=== PATIENT | female | born 1940 | race Hispanic/Latino ===

== ENCOUNTER 2020-09-18 22:32 | Emergency (ER) | payer MEDICARE, MEDICAID ==
[~2020-09-18] VITALS: Ht 172.7 cm; Wt 93.0 kg
[~2020-09-18 22:32] MED LIST: ALDACTONE50 MG ORAL; AMLODIPINE BESY10 MG ORAL; ATENOLOL-CHLOR1 EAC2 ORAL; ATENOLOL100 MG ORAL; ATORVASTATIN CA20 MG ORAL; AZOR 10-20 MG1 EACH ORAL; BAYER CHEWABLE81 MG PO; FUROSEMIDE40 MG ORAL; LASIX40 MG ORAL; LOSARTAN POTASS50 MG ORAL; METFORMIN HCL500 M1 ORAL; TOPROL XL100 MG ORAL; WARFARIN SODIUM10 MG ORAL
[2020-09-18 22:35] VITALS: BP 158/101
--- NOTE | 2020-09-18 22:35 | NUR ---
ED Nurse Note: Patient brought into ED from home by BABAK RA 67 for c/o SOB onset today along with cough for the past few days. Patient presents to ED on NC that was placed by BABAK. Upon connecting to panel monitor patient is on 2L oxygen via NC with saturation of 98%. She denies any fever, chest pain, generalized pain or weakness. She is aaox4. Patient states she also saw her flying squad worker today, no complications. Will cont. to monitor; safety measures met.
--- NOTE | 2020-09-18 22:35 | NUR ---
ED Nurse Note: Audible wheezing heard upon assessment.
--- NOTE | 2020-09-18 22:44 | Emergency Room Report ---
History of Present Illness General Chief Complaint: sob Source: Patient, EMS Present Illness HPI Patient is an 80-year-old female past medical history of diabetes, hypertension, heart disease, on warfarin who presents to the ER for shortness of breath. Patient was brought in by EMS from home. Patient states that she has had a nonproductive cough for the past few days and became short of breath earlier today. She denies any chest pain. She denies any fever or chills. She denies any abdominal pain nausea or vomiting. She denies any lower extremity pain. She denies any sick contacts. She denies any recent travel. Patient states that she was seen by her covering and lining supervisor today and was told that everything was okay. Allergies: Coded Allergies: No Known Allergies (Unverified , 05/01/13) COVID-19 Screening Contact w/high risk pt: No Experienced COVID-19 symptoms?: Yes COVID-19 Testing performed CONTESTANT COORDINATOR: No Patient History Last Menstrual Period: UNK Now: No Reviewed Nursing Documentation: PMH: Agreed; PSxH: Agreed Nursing Documentation-PMH Past Medical History: No History, Except For Hx Cardiac Problems: Yes Hx Hypertension: Yes Hx Diabetes: Yes Hx Cancer: No Hx Gastrointestinal Problems: No Hx Neurological Problems: No Review of Systems All Other Systems: negative except mentioned in HPI Physical Exam Vital Signs Date Time Temp Pulse Resp B/P (MAP) Pulse Ox O2 Delivery O2 Flow Rate FiO2 09/18/20 22:24 98.2 78 24 158/101 (120) 95 Room Air Sp02 EP Interpretation: reviewed, normal General Appearance: alert, GCS 15, non-toxic, mild distress Head: normocephalic, atraumatic Eyes: bilateral eye normal inspection, bilateral eye PERRL ENT: hearing grossly normal, normal pharynx, no angioedema, normal voice Neck: full range of motion, supple/symm/no masses Respiratory: respiratory distress, crackles, speaking full sentences, other - Tachypneic Cardiovascular #1: regular rate, rhythm, no edema Gastrointestinal: normal bowel sounds, non tender, soft, non-distended, no guarding, no rebound Rectal: deferred Genitourinary: normal inspection, no CVA tenderness Musculoskeletal: normal range of motion, no calf tenderness Neurologic: neurology teacher III-XII nml as tested, oriented x3 Psychiatric: no suicidal/homicidal ideation Skin: no rash Lymphatic: no adenopathy Medical Decision Making Diagnostic Impression: Primary Impression: Respiratory distress Additional Impressions: Systolic congestive left heart failure, NYHA class 4 Acute renal failure ER Course Patient presents with CHF exacerbation. Patient given aspirin as well as IV Lasix. Patient has mildly elevated white blood cell count. Patient treated with azithromycin as well as ceftriaxone. Patient mildly hypoxic nasal cannula increased to 5 L. Patient appears improved. Patient to be transferred for further treatment and evaluation. Laboratory Tests Test 09/18/20 00:17 09/18/20 22:35 09/18/20 23:27 Arterial Blood pH 7.412 (7.350-7.450) Arterial Blood Partial Pressure CO2 36.4 mmHg (35.0-45.0) Arterial Blood Partial Pressure O2 71.8 mmHg (75.0-100.0) L Arterial Blood HCO3 22.7 mmol/L (22.0-26.0) Arterial Blood Oxygen Saturation 94.5 % (95-100) L Arterial Blood Base Excess -1.5 (-2-2) Darek Test Positive White Blood Count 11.2 K/UL (4.8-10.8) H Red Blood Count 4.17 M/UL (4.20-5.40) L Hemoglobin 11.8 G/DL (12.0-16.0) L Hematocrit 36.3 % (37.0-47.0) L Mean Corpuscular Volume 87 FL (80-99) Mean Corpuscular Hemoglobin 28.2 PG (27.0-31.0) Mean Corpuscular Hemoglobin Concent 32.4 G/DL (32.0-36.0) Red Cell Distribution Width 13.6 % (11.6-14.8) Platelet Count 224 K/UL (150-450) Mean Platelet Volume 11.1 FL (6.5-10.1) H Neutrophils (%) (Auto) 53.2 % (45.0-75.0) Lymphocytes (%) (Auto) 32.0 % (20.0-45.0) Monocytes (%) (Auto) 9.4 % (1.0-10.0) Eosinophils (%) (Auto) 4.2 % (0.0-3.0) H Basophils (%) (Auto) 1.3 % (0.0-2.0) Prothrombin Time 26.7 SEC (9.30-11.50) H Prothrombin Time INR 2.6 (0.9-1.1) H Activated Partial Thromboplast Time 37 SEC (23-33) H D-Dimer 0.43 mg/L FEU (0.00-0.49) Sodium Level 136 MMOL/L (136-145) Potassium Level 4.7 MMOL/L (3.5-5.1) Chloride Level 103 MMOL/L (98-107) Carbon Dioxide Level 24 MMOL/L (21-32) Anion Gap 9 mmol/L (5-15) Blood Urea Nitrogen 34 mg/dL (7-18) H Creatinine 1.8 MG/DL (0.55-1.30) H Estimated Glomerular Filtration Rate 27.0 mL/min (>60) Glucose Level 178 MG/DL (74-106) H Lactic Acid Level 0.90 mmol/L (0.4-2.0) Calcium Level 8.8 MG/DL (8.5-10.1) Magnesium Level 1.9 MG/DL (1.8-2.4) Total Bilirubin 0.3 MG/DL (0.2-1.0) Aspartate Amino Transferase (AST) 43 U/L (15-37) H Alanine Aminotransferase (ALT) 45 U/L (12-78) Alkaline Phosphatase 246 U/L (46-116) H Total Creatine Kinase 185 U/L (26-308) Troponin I 0.006 ng/mL (0.000-0.056) Pro-B-Type Natriuretic Peptide 5770 pg/mL (0-125) H Total Protein 6.7 G/DL (6.4-8.2) Albumin 3.3 G/DL (3.4-5.0) L Globulin 3.4 g/dL Albumin/Globulin Ratio 1.0 (1.0-2.7) Urine Color Pale yellow Urine Appearance Clear Urine pH 7 (4.5-8.0) Urine Specific [place] 1.005 (1.005-1.035) Urine Protein 3+ (NEGATIVE) H Urine Glucose (UA) Negative (NEGATIVE) Urine Ketones Negative (NEGATIVE) Urine Blood 4+ (NEGATIVE) H Urine Nitrite Negative (NEGATIVE) Urine Bilirubin Negative (NEGATIVE) Urine Urobilinogen Normal MG/DL (0.0-1.0) Urine Leukocyte Esterase Negative (NEGATIVE) Urine RBC 0-2 /HPF (0 - 2) Urine WBC 0-2 /HPF (0 - 2) Urine Squamous Epithelial Cells Occasional /LPF Urine Bacteria Occasional /HPF (NONE) Microbiology Date/Time Source Procedure Growth Status 09/18/20 22:35 Nasopharynx SARS-CoV-2 RdRp Gene Assay - Final Complete 09/18/20 22:35 Nasal Nares - Final Complete 09/18/20 22:35 Nasal Nares - Final Complete EKG Diagnostic Results Troponin ordered: Yes When was troponin ordered?: Sep 18, 2020 EKG Time: 22:31 EP Interpretation: Caitlin Klein MD Rate: normal - 8 bpm Rhythm: NSR Other Impression Sinus rhythm with sinus arrhythmia and PVCs as well as left bundle branch block ST depressions in 1 to V5 and V6 ASA given to the pt in ED: Yes Rhythm Strip Diag. Results Rhythm Strip Time: 23:36 EP Interpretation: yes - Caitlin Klein MD Rate: 69 bpm Rhythm: NSR, no PVC's, no ectopy Chest X-Ray Diagnostic Results Chest X-Ray Diagnostic Results : Chest X-Ray Ordered: Yes # of Views/Limited/Complete: 1 View Indication: Shortness of Breath EP Interpretation: Yes Interpretation: no pneumothorax, other - Cardiomegaly, pulmonary vascular congestion Impression: Other - CHF Electronically Signed by: Caitlin Klein MD Last Vital Signs Date Time Temp Pulse Resp B/P (MAP) Pulse Ox O2 Delivery O2 Flow Rate FiO2 09/18/20 22:24 98.2 78 24 158/101 (120) 95 Room Air Disposition: ADMITTED INPATIENT Condition: Critical Physician Consult: Dr. Olvera to accept transfer Additional Instructions: The patient was provided with discharge instructions, notified to follow-up with a primary care doctor and or specialist in the next 24-48 hours, and to return to the ED if they have worsening of their symptoms. Please note that this report is being documented using [employer] technology. This can lead to erroneous entry secondary to incorrect interpretation by the dictating instrument. Caitlin Klein M.D. Sep 18, 2020 22:44
--- NOTE | 2020-09-18 22:49 | Diagnostic Imaging Report ---
EXAM: XR Chest, 1 View CLINICAL HISTORY: SOB TECHNIQUE: Frontal view of the chest. COMPARISON: None FINDINGS: Lungs: Unremarkable. No consolidation. Pleural space: There is pulmonary vascular congestion. There are no significant pleural effusions or pneumothoraces. Heart: Unremarkable. No cardiomegaly. Mediastinum: Unremarkable. Bones/joints: Unremarkable. Vasculature: The heart is enlarged. Moderate atherosclerotic calcified lesions are seen within the thoracic aorta. IMPRESSION: Cardiomegaly and pulmonary vascular congestion.
[2020-09-18 23:09] LABS: BASOPHILS % (AUTO) 1.3 % (0.0-2.0); EOSINOPHILS % (AUTO) 4.2 % (0.0-3.0); HEMATOCRIT 36.3 % (37.0-47.0); HEMOGLOBIN 11.8 G/DL (12.0-16.0); MEAN CORPUSCULAR VOLUME 87 FL (80-99); MONOCYTES % (AUTO) 9.4 % (1.0-10.0); NEUTROPHILS % (AUTO) 53.2 % (45.0-75.0); PLATELET COUNT 224 K/UL (150-450); RED BLOOD COUNT 4.17 M/UL (4.20-5.40); RED CELL DISTRIBUTION WIDTH 13.6 % (11.6-14.8); WHITE BLOOD COUNT 11.2 K/UL (4.8-10.8)
[2020-09-18 23:31] LABS: ANION GAP 9 mmol/L (5-15); BLOOD UREA NITROGEN 34 mg/dL (7-18); CALCIUM 8.8 MG/DL (8.5-10.1); CARBON DIOXIDE 24 MMOL/L (21-32); CHLORIDE 103 MMOL/L (98-107); CREATININE 1.8 MG/DL (0.55-1.30); POTASSIUM 4.7 MMOL/L (3.5-5.1); SODIUM 136 MMOL/L (136-145)
[2020-09-18 23:34] LABS: ALANINE AMINOTRANSFERASE 45 U/L (12-78); ALBUMIN 3.3 G/DL (3.4-5.0); ALKALINE PHOSPHATASE 246 U/L (46-116); ASPARTATE AMINO TRANSFERASE 43 U/L (15-37); BILIRUBIN,TOTAL 0.3 MG/DL (0.2-1.0); CREATINE KINASE 185 U/L (26-308)
[2020-09-18 23:53] LABS: APPEARANCE,URINE CLEAR; BILIRUBIN, URINE NEGATIVE (NEGATIVE); COLOR,URINE PALE YELLOW; GLUCOSE, URINE (UA) NEGATIVE (NEGATIVE); KETONES,URINE NEGATIVE (NEGATIVE); LEUKOCYTE ESTERASE ,URINE NEGATIVE (NEGATIVE); NITRITE,URINE NEGATIVE (NEGATIVE); PH,URINE 7 (4.5-8.0); PROTEIN,URINE 3+ (NEGATIVE); UROBILINOGEN,URINE NORMAL MG/DL (0.0-1.0)
[2020-09-19] VITALS: BP 142/100
--- NOTE | 2020-09-19 | NUR ---
ED Nurse Note: Patient is resting in bed. She appears to be breathing normal and unlabored at this time. She remains on 2L oxygen via NC. See vitals flow sheet.
[2020-09-19 00:08] LABS: INR 2.6 (0.9-1.1)
[2020-09-19] MEDS ORDERED: cefTRIAXone 1 GM in NS 55 ML IVPB ONE (00:30)
[2020-09-19] MEDS ORDERED: Azithromycin 500 MG in NS 275 ML IV ONE (00:30)
--- NOTE | 2020-09-19 00:30 | NUR ---
ED Nurse Note: Due to pt ABG results, pt placed on 5L oxygen via NC by RT. BLAKE aware.
--- NOTE | 2020-09-19 02:00 | NUR ---
ED Nurse Note: Patient breathing has improved, she is not in any acute or respiratory distress at this time. ERMD bedside. Will continue to monitor. Patient denies pain or any complaint. She is resting in bed.
[2020-09-19 02:20] VITALS: BP 139/56
--- NOTE | 2020-09-19 02:20 | NUR ---
ED Nurse Note: Patient has ambulated to restroom with steady gait 3x since ED arrival.
--- NOTE | 2020-09-19 03:00 | NUR ---
ED Nurse Note: Report given to ROSY López at [facility].
[2020-09-19 03:15] VITALS: BP 140/62
--- NOTE | 2020-09-19 03:15 | NUR ---
ED Nurse Note: Patient is stable for transfer to [facility] at this time. She is aaox4, breathing is normal on 5L oxygen via NC at time of ED departure. NAD noted and vital signs are stable. Report given to EMS crew. Patient being transported via gurney by [facility] ALS unit 343. IV is patent and intact. She took all belongings with her.
== END 2020-09-19 03:15 | disposition other institution (70) ==
LOC: EDBD 22:32 → EMR 22:45
DX: R06.03 Acute respiratory distress (principal); I13.0 Hypertensive heart and chronic kidney disease with heart failure and stage 1 through stage 4 chronic kidney disease, or unspecified chronic kidney disease; E11.22 Type 2 diabetes mellitus with diabetic chronic kidney disease; N18.9 Chronic kidney disease, unspecified; I50.20 Unspecified systolic (congestive) heart failure; Z79.01 Long term (current) use of anticoagulants; R06.82 Tachypnea, not elsewhere classified; I44.7 Left bundle-branch block, unspecified; I49.9 Cardiac arrhythmia, unspecified; I51.7 Cardiomegaly
CPT/HCPCS: 36415; 71045; 80053; 81003; 82550; 82803; 83605; 83735; 83880; 84484; 85025; 85379; 85610; 85730; 86710; 87040; 96365; 96367; 96375; 96376; 99285; J0456; J0696; J1940; J7050; U0002

== ENCOUNTER 2020-11-06 02:36 | Inpatient (IN) | payer MEDICARE, MEDICAID ==
[2020-11-06] VITALS (7 sets, daily range): BP systolic 132–157; BP diastolic 63–78
[~2020-11-06] VITALS: Ht 172.7 cm; Wt 74.8 kg
[2020-11-06] MEDS ORDERED: JANUVIA25 MG ORAL (02:38)
[2020-11-06] MEDS ORDERED: CARVEDILOL12.5 MG ORAL (02:38)
--- NOTE | 2020-11-06 02:42 | Emergency Room Report ---
History of Present Illness General Chief Complaint: Shortness of breath Source: Patient, EMS Present Illness HPI Patient is an 80-year-old female presents for increased shortness of breath. Gradual onset of symptoms. Prior history of CHF as well as COPD. Had been given nitroglycerin by EMS prior to arrival. Patient normally uses home oxygen. Had adequate oxygen saturation prior to arrival. Patient had increased work of breathing. Patient is normally anticoagulated with Coumadin. Prior history of diabetes as well as atrial fibrillation, she has cardiac pacer. Allergies: Coded Allergies: No Known Allergies (Unverified , 05/01/13) COVID-19 Screening Contact w/high risk pt: No Experienced COVID-19 symptoms?: Yes COVID-19 Testing performed ROSS FURNACE OPERATOR: No - unk Patient History Past Medical History: see triage record Last Menstrual Period: n/a Reviewed Nursing Documentation: PMH: Agreed; PSxH: Agreed Nursing Documentation-PMH Past Medical History: No History, Except For Hx Hypertension: Yes Hx Diabetes: Yes Hx Cancer: No Hx Gastrointestinal Problems: No Hx Neurological Problems: No Review of Systems All Other Systems: negative except mentioned in HPI Physical Exam Vital Signs Date Time Temp Pulse Resp B/P (MAP) Pulse Ox O2 Delivery O2 Flow Rate FiO2 11/06/20 02:33 98.2 125 25 134/101 (112) 99 Nasal Cannula 3.0 General Appearance: alert, GCS 15, moderate distress, Chronically Ill Neck: full range of motion Respiratory: respiratory distress, rales Cardiovascular #1: tachycardia Gastrointestinal: normal inspection Musculoskeletal: normal inspection, back normal Neurologic: alert, motor strength/tone normal, news copy editor III-XII nml as tested, oriented x3 Skin: no rash Procedures Critical Care Time Critical Care Time Patient had a critical medical condition which untreated could potentially result in life or limb threatening injury. Total critical care time excluding procedures approximately 45 minutes. Medical Decision Making Diagnostic Impression: Primary Impression: Respiratory distress Additional Impressions: CHF (congestive heart failure) Pneumonia ER Course Presented for shortness of breath. Differential diagnosis include was not limited to CHF exacerbation, pulmonary edema, renal failure, coronavirus infection, pneumonia among others. Because of complexity of patient's case laboratory tests and imaging studies were ordered. Patient is noted to have prior issue of CHF and EKG shows sinus tachycardia with left bundle branch block. Patient is given nitroglycerin. She is also given aspirin. Started on BiPAP. Was noted to have significant work of breathing initial. Patient was noted to be subtherapeutic on Coumadin.BNP was markedly elevated. Coronavirus testing was negative. Patient was given IV Lasix. patient case was discussed with [facility] and patient will be hospitalized for further evaluation and treatment of congestive heart failure. Patient will be admitted to [facility] due to instability. Patient be admitted to due to capitated physic michael Labs Test 11/06/20 02:40 11/06/20 02:41 White Blood Count 14.7 K/UL (4.8-10.8) Red Blood Count 3.86 M/UL (4.20-5.40) Hemoglobin 10.8 G/DL (12.0-16.0) Hematocrit 31.8 % (37.0-47.0) Mean Corpuscular Volume 83 FL (80-99) Mean Corpuscular Hemoglobin 28.1 PG (27.0-31.0) Mean Corpuscular Hemoglobin Concent 34.0 G/DL (32.0-36.0) Red Cell Distribution Width 14.4 % (11.6-14.8) Platelet Count 276 K/UL (150-450) Mean Platelet Volume 11.6 FL (6.5-10.1) Neutrophils (%) (Auto) 62.0 % (45.0-75.0) Lymphocytes (%) (Auto) 26.9 % (20.0-45.0) Monocytes (%) (Auto) 6.7 % (1.0-10.0) Eosinophils (%) (Auto) 3.2 % (0.0-3.0) Basophils (%) (Auto) 1.2 % (0.0-2.0) Prothrombin Time 19.1 SEC (9.30-11.50) Prothromb Time International Ratio 1.8 (0.9-1.1) Activated Partial Thromboplast Time 39 SEC (23-33) D-Dimer 2.07 mg/L FEU (0.00-0.49) Sodium Level 135 MMOL/L (136-145) Potassium Level 4.4 MMOL/L (3.5-5.1) Chloride Level 102 MMOL/L (98-107) Carbon Dioxide Level 25 MMOL/L (21-32) Anion Gap 8 mmol/L (5-15) Blood Urea Nitrogen 38 mg/dL (7-18) Creatinine 2.4 MG/DL (0.55-1.30) Estimat Glomerular Filtration Rate 19.4 mL/min (>60) Glucose Level 296 MG/DL (74-106) Lactic Acid Level 1.30 mmol/L (0.4-2.0) Calcium Level 8.7 MG/DL (8.5-10.1) Phosphorus Level 4.4 MG/DL (2.5-4.9) Magnesium Level 2.0 MG/DL (1.8-2.4) Ferritin 98 NG/ML (8-388) Total Bilirubin 0.4 MG/DL (0.2-1.0) Aspartate Amino Transf (AST/SGOT) 23 U/L (15-37) Alanine Aminotransferase (ALT/SGPT) 32 U/L (12-78) Alkaline Phosphatase 140 U/L (46-116) Lactate Dehydrogenase 216 U/L (81-234) Total Creatine Kinase 147 U/L (26-308) Creatine Kinase MB 1.8 NG/ML (0.0-3.6) Creatine Kinase MB Relative Index 1.2 Troponin I 0.038 ng/mL (0.000-0.056) C-Reactive Protein, Quantitative 0.9 mg/dL (0.00-0.90) Pro-B-Type Natriuretic Peptide 53617 pg/mL (0-125) Total Protein 7.7 G/DL (6.4-8.2) Albumin 3.2 G/DL (3.4-5.0) Globulin 4.5 g/dL Albumin/Globulin Ratio 0.7 (1.0-2.7) Lipase 1458 U/L (73-393) EKG Diagnostic Results Rate: tachycardiac - 128 Rhythm: NSR ST Segments: no acute changes Rhythm Strip Diag. Results EP Interpretation: yes Rhythm: no PVC's, no ectopy, other - Tachycardia Chest X-Ray Diagnostic Results Chest X-Ray Diagnostic Results : Chest X-Ray Ordered: Yes # of Views/Limited/Complete: 1 View Indication: Shortness of Breath EP Interpretation: Yes PA Xray: Interpretation reviewed Interpretation: no consolidation Impression: Other - Cardiomegaly, bilateral vascular congestion and pulmonary edema Last Vital Signs Date Time Temp Pulse Resp B/P (MAP) Pulse Ox O2 Delivery O2 Flow Rate FiO2 12/11/20 02:33 98.2 125 25 134/101 (112) 99 Nasal Cannula 3.0 Status: unchanged Disposition: ADMITTED INPATIENT Condition: Stable Mauricio Rangel MD Nov 06, 2020 02:42
[2020-11-06] MEDS ORDERED: Aspirin Baby 81mg ORAL ONE (02:45)
[2020-11-06] MEDS ORDERED: Nitroglycerin Subl 0.4mg tab SL PRN (02:45)
[2020-11-06 02:55] LABS: BASOPHILS % (AUTO) 1.2 % (0.0-2.0); EOSINOPHILS % (AUTO) 3.2 % (0.0-3.0); HEMATOCRIT 31.8 % (37.0-47.0); HEMOGLOBIN 10.8 G/DL (12.0-16.0); LYMPHOCYTES % (AUTO) 26.9 % (20.0-45.0); MEAN CORPUSCULAR VOLUME 83 FL (80-99); MONOCYTES % (AUTO) 6.7 % (1.0-10.0); PLATELET COUNT 276 K/UL (150-450); RED BLOOD COUNT 3.86 M/UL (4.20-5.40); RED CELL DISTRIBUTION WIDTH 14.4 % (11.6-14.8); WHITE BLOOD COUNT 14.7 K/UL (4.8-10.8)
[2020-11-06 03:09] LABS: CALCIUM 8.7 MG/DL (8.5-10.1); CREATININE 2.4 MG/DL (0.55-1.30); POTASSIUM 4.4 MMOL/L (3.5-5.1)
[2020-11-06 03:15] LABS: INR 1.8 (0.9-1.1)
[2020-11-06 03:26] LABS: ALBUMIN 3.2 G/DL (3.4-5.0); ALBUMIN/GLOBULIN RATIO 0.7 (1.0-2.7); BILIRUBIN,TOTAL 0.4 MG/DL (0.2-1.0); CKMB 1.8 NG/ML (0.0-3.6); PHOSPHORUS 4.4 MG/DL (2.5-4.9)
[2020-11-06 03:46] LABS: APPEARANCE,URINE CLEAR; BILIRUBIN, URINE NEGATIVE (NEGATIVE); COLOR,URINE PALE YELLOW; GLUCOSE, URINE (UA) NEGATIVE (NEGATIVE); KETONES,URINE NEGATIVE (NEGATIVE); LEUKOCYTE ESTERASE ,URINE 1+ (NEGATIVE); NITRITE,URINE NEGATIVE (NEGATIVE); PH,URINE 5 (4.5-8.0); PROTEIN,URINE 3+ (NEGATIVE); UROBILINOGEN,URINE NORMAL MG/DL (0.0-1.0)
[2020-11-06] MEDS ORDERED: cefTRIAXone 1 GM in NS 55 ML IVPB ONE (04:00)
[2020-11-06] MEDS ORDERED: Albuterol/Ipratropium 3ml neb HHN ONE (04:00)
--- NOTE | 2020-11-06 11:09 | Diagnostic Imaging Report ---
Indication: Shortness of breath Technique: XRAY Chest 1v Comparison: 09/18/2020 Findings: Heart is enlarged. Atherosclerotic calcifications noted in the aorta. There is interstitial opacification/edema and patchy perihilar infiltrates. No significant pleural effusion. No pneumothorax. No appreciable acute ultrasound body. Impression: Cardiomegaly with interstitial opacification/edema and patchy perihilar opacities. Findings suggest CHF. Superimposed pneumonia needs to be excluded clinically. Follow-up suggested.
[2020-11-06] MEDS ORDERED: Morphine Sulfate 2mg/ml Inj(IV/IM USE ONLY) IVP ONE (12:30)
--- NOTE | 2020-11-06 14:51 | Cardiac Electrophysiology PN ---
Subjective Subjective [id number] Objective Last 24 Hour Vital Signs Date Time Temp Pulse Resp B/P (MAP) Pulse Ox O2 Delivery O2 Flow Rate FiO2 11/06/20 13:54 97.6 80 17 157/63 100 Bi-pap 11/06/20 13:00 98.1 11/06/20 10:25 89 24 100 30 11/06/20 09:34 98.1 78 16 153/76 100 Bi-pap 11/06/20 06:50 71 26 100 30 11/06/20 03:58 87 16 100 Bi-Pap 30 92 18 100 30 11/06/20 03:10 84 16 Bi-pap 30 11/06/20 02:51 128 25 99 30 11/06/20 02:44 175/93 11/06/20 02:40 97.8 97 21 156/78 98 Bi-pap 30 11/06/20 02:33 98.2 125 25 134/101 (112) 99 Nasal Cannula 3.0 Laboratory Tests Test 11/06/20 02:40 11/06/20 02:41 11/06/20 03:35 White Blood Count 14.7 K/UL (4.8-10.8) H Red Blood Count 3.86 M/UL (4.20-5.40) L Hemoglobin 10.8 G/DL (12.0-16.0) L Hematocrit 31.8 % (37.0-47.0) L Mean Corpuscular Volume 83 FL (80-99) Mean Corpuscular Hemoglobin 28.1 PG (27.0-31.0) Mean Corpuscular Hemoglobin Concent 34.0 G/DL (32.0-36.0) Red Cell Distribution Width 14.4 % (11.6-14.8) Platelet Count 276 K/UL (150-450) Mean Platelet Volume 11.6 FL (6.5-10.1) H Neutrophils (%) (Auto) 62.0 % (45.0-75.0) Lymphocytes (%) (Auto) 26.9 % (20.0-45.0) Monocytes (%) (Auto) 6.7 % (1.0-10.0) Eosinophils (%) (Auto) 3.2 % (0.0-3.0) H Basophils (%) (Auto) 1.2 % (0.0-2.0) Prothrombin Time 19.1 SEC (9.30-11.50) H Prothromb Time International Ratio 1.8 (0.9-1.1) H Activated Partial Thromboplast Time 39 SEC (23-33) H D-Dimer 2.07 mg/L FEU (0.00-0.49) H Sodium Level 135 MMOL/L (136-145) L Potassium Level 4.4 MMOL/L (3.5-5.1) Chloride Level 102 MMOL/L (98-107) Carbon Dioxide Level 25 MMOL/L (21-32) Anion Gap 8 mmol/L (5-15) Blood Urea Nitrogen 38 mg/dL (7-18) H Creatinine 2.4 MG/DL (0.55-1.30) H Estimat Glomerular Filtration Rate 19.4 mL/min (>60) Glucose Level 296 MG/DL (74-106) H Lactic Acid Level 1.30 mmol/L (0.4-2.0) Calcium Level 8.7 MG/DL (8.5-10.1) Phosphorus Level 4.4 MG/DL (2.5-4.9) Magnesium Level 2.0 MG/DL (1.8-2.4) Ferritin 98 NG/ML (8-388) Total Bilirubin 0.4 MG/DL (0.2-1.0) Aspartate Amino Transf (AST/SGOT) 23 U/L (15-37) Alanine Aminotransferase (ALT/SGPT) 32 U/L (12-78) Alkaline Phosphatase 140 U/L (46-116) H Lactate Dehydrogenase 216 U/L (81-234) Total Creatine Kinase 147 U/L (26-308) Creatine Kinase MB 1.8 NG/ML (0.0-3.6) Creatine Kinase MB Relative Index 1.2 Troponin I 0.038 ng/mL (0.000-0.056) C-Reactive Protein, Quantitative 0.9 mg/dL (0.00-0.90) Pro-B-Type Natriuretic Peptide 47894 pg/mL (0-125) H Total Protein 7.7 G/DL (6.4-8.2) Albumin 3.2 G/DL (3.4-5.0) L Globulin 4.5 g/dL Albumin/Globulin Ratio 0.7 (1.0-2.7) L Lipase 1458 U/L (73-393) H POC Whole Blood Glucose Pending Urine Color Pale yellow Urine Appearance Clear Urine pH 5 (4.5-8.0) Urine Specific [place] 1.020 (1.005-1.035) Urine Protein 3+ (NEGATIVE) H Urine Glucose (UA) Negative (NEGATIVE) Urine Ketones Negative (NEGATIVE) Urine Blood 1+ (NEGATIVE) H Urine Nitrite Negative (NEGATIVE) Urine Bilirubin Negative (NEGATIVE) Urine Urobilinogen Normal MG/DL (0.0-1.0) Urine Leukocyte Esterase 1+ (NEGATIVE) H Urine RBC 2-4 /HPF (0 - 2) H Urine WBC 20-30 /HPF (0 - 2) H Urine Squamous Epithelial Cells Many /LPF (NONE/OCC) H Urine Bacteria Moderate /HPF (NONE) H Microbiology Date/Time Source Procedure Growth Status 11/06/20 02:35 Nasopharynx SARS-CoV-2 RdRp Gene Assay - Final Complete John Nye MD Nov 06, 2020 14:51
--- NOTE | 2020-11-06 16:19 | Diagnostic Imaging Report ---
Indication: Reason For Exam: PNEUMOTX Technique: Single AP view of the chest. Comparison: Chest radiograph dated 11/06/2020 Findings: The cardiomediastinal silhouette is unchanged in appearance. Interval decrease in interstitial edema. No new airspace consolidation. No pneumothorax or pleural effusion. IMPRESSION: Improved pulmonary edema.
[2020-11-06] MEDS ORDERED: Warfarin Sodium 5mg ORAL SCH (17:00)
[2020-11-06] MEDS: NovoLOG Insulin Flexpen SUBQ SCH (21:00)
--- NOTE | 2020-11-06 21:31 | Consultation ---
DATE OF CONSULTATION: 11/06/2020 CARDIOLOGY CONSULTATION CONSULTING PHYSICIAN: John Nye MD REFERRING PHYSICIAN: Víctor Espniosa MD REASON FOR CONSULTATION: Interrogation of congestive heart failure. HISTORY OF PRESENT ILLNESS: Patient is an 80-year-old lady with history of hypertension who was just recently hospitalized at [facility] from 10/18/2020 to 10/21/2020. Patient has history of medical not adherence and presents to the emergency room with increasing shortness of breath. Patient also has history of COPD. Patient normally uses home oxygen. Patient also has history of diabetes as well as atrial fibrillation. REVIEW OF SYSTEMS: Negative other than what was mentioned in history of present illness. PAST MEDICAL HISTORY: As mentioned above. FAMILY HISTORY: Noncontributory. SOCIAL HISTORY: She lives at home with daughter. Does not smoke or drink alcohol. MEDICATIONS: From discharge include Januvia, Coreg, Lipitor, and Lasix. PHYSICAL EXAMINATION: VITAL SIGNS: Show blood pressure of 157/63, pulse is 90, respirations 18, and she is afebrile. HEAD AND NECK: Shows positive JVD. Her BiPAP is on. LUNGS: Coarse rhonchi. CARDIOVASCULAR: Shows regular S1 and S2 with no gallop. ABDOMEN: Soft. EXTREMITIES: 1+ pitting edema. LABORATORY AND DIAGNOSTIC DATA: Her labs show white count 14.7, hematocrit 10.9, hematocrit 31.8, and platelet count 276. Sodium 135, potassium 4.4, BUN of 38, creatinine 2.4, and glucose of 296. BNP 16,000. Troponin 0.038. ASSESSMENT AND PLAN: 1. Exacerbation of congestive heart failure. We will repeat the echocardiogram to evaluate for ejection fraction and wall motion abnormalities. Patient is on Lasix 40 mg IV b.i.d., but she may need more as her creatinine is 2.4. 2. COPD, on home oxygen. 3. Hypertension. Continue Lasix. 4. Diabetes. 5. History of atrial fibrillation. Usually takes Coumadin. INR is 1.8. It is of note that patient's D-dimer is also elevated at 2.0 and she may benefit from V/Q scan if she stabilizes from respiratory perspective, but the pulmonary embolism is unlikely as her INR is therapeutic. Thank you very much, Dr. Espinosa, for allowing me to participate in the care of this patient. Please do not hesitate to contact me for any questions regarding my evaluation. John Nye M.D. DR: PREETI JOB#: [id number] CC:
--- NOTE | 2020-11-06 22:01 | History and Physical Report ---
DATE OF ADMISSION: 11/06/2020 HISTORY OF PRESENT ILLNESS: This is an 80-year-old female with history of CHF and also medical nonadherence who came to the hospital with shortness of breath. Patient has a history of CHF and COPD. She was given nitroglycerin by EMS. She also uses oxygen at home. She has been admitted recently to the hospital at [facility] and discharged before [place] with a very similar presentation. At that time, she was placed on BiPAP and improved. Patient had been placed on BiPAP and clinically is improved. At this time, she saturating well on nasal oxygen. On my assessment today in the evening, she is on room air. PAST MEDICAL HISTORY: Notable for diabetes mellitus, hypertension, CHF, COPD, chronic home oxygen therapy. MEDICATIONS: Her current list of home medications includes Coumadin, aspirin. She also received Lasix currently in the emergency room. Other home medications include atenolol, Lipitor, amlodipine, losartan, metformin, Januvia, and Aldactone, which will be continued. REVIEW OF SYSTEMS: Denies any headaches, hematemesis, melena, hematochezia, night sweats, or weight loss. PHYSICAL EXAMINATION: GENERAL: Reveals an 80-year-old female. HEENT: Unremarkable. CHEST: Shows clear breath sounds bilaterally with few basilar crackles. HEART: Normal heart sounds. ABDOMEN: Soft. EXTREMITIES: There is 1+ edema. VITAL SIGNS: Show blood pressure of 130/70, heart rate is 74, respirations 18, O2 saturation 98% on room air. LABORATORY DATA: Lab testing shows hemoglobin 10.8, white count 14.7. Creatinine 2.4. Coags are negative. D-dimer 2.0. INR 1.8. Her rapid COVID testing is negative. IMPRESSION: 1. Decompensated congestive heart failure. 2. Renal insufficiency. 3. Hypertension. 4. Diabetes mellitus. DISCUSSION: Admit to the hospital. She is off BiPAP now. We will diurese. Consult Cardiology and Nephrology. Diabetes monitoring. We will follow carefully. Víctor Espinosa M.D. DR: BRANT JOB#: [id number] CC:
[2020-11-07] MEDS: Carvedilol 12.5mg tab ORAL SCH ×3 (00:15→21:08)
[2020-11-07 04:00] VITALS: BP 125/61
--- NOTE | 2020-11-07 05:54 | Pulmonology Progress Note ---
Subjective Interval Events: Looking better Constitutional: Reports: no symptoms HEENT: Repors: no symptoms Respiratory: Reports: no symptoms Cardiovascular: Reports: no symptoms Gastrointestinal/Abdominal: Reports: no symptoms Genitourinary: Reports: no symptoms Allergies: Coded Allergies: No Known Allergies (Unverified , 05/01/13) Objective Last 24 Hour Vital Signs Date Time Temp Pulse Resp B/P (MAP) Pulse Ox O2 Delivery O2 Flow Rate FiO2 11/07/20 04:00 97.7 80 18 125/61 (82) 100 11/07/20 04:00 Nasal Cannula 4.0 11/07/20 03:36 74 11/07/20 00:15 89 148/71 11/07/20 00:00 Nasal Cannula 4.0 11/07/20 00:00 4.0 11/06/20 23:43 82 11/06/20 23:20 96.4 89 18 148/71 (96) 99 11/06/20 23:10 97.2 96 23 136/76 98 Room Air 4.0 32 11/06/20 22:45 97.2 96 23 136/76 98 Room Air 4.0 11/06/20 19:21 97.6 98 21 145/73 97 Room Air 4.0 11/06/20 19:07 99 32 11/06/20 17:35 97.8 77 22 132/71 98 Room Air 11/06/20 15:00 84 20 100 30 11/06/20 13:54 97.6 80 17 157/63 100 Bi-pap 11/06/20 13:00 98.1 11/06/20 10:25 89 24 100 30 11/06/20 09:34 98.1 78 16 153/76 100 Bi-pap 11/06/20 06:50 71 26 100 30 General Appearance: no acute distress HEENT: normocephalic Respiratory: chest wall non-tender, decreased breath sounds Cardiovascular: normal peripheral pulses Abdomen: normal bowel sounds Microbiology Date/Time Source Procedure Growth Status 11/06/20 02:40 Blood Blood Culture - Preliminary NO GROWTH AFTER 24 HOURS Resulted 11/06/20 02:35 Nasopharynx SARS-CoV-2 RdRp Gene Assay - Final Complete 11/06/20 02:25 Blood Blood Culture - Preliminary NO GROWTH AFTER 24 HOURS Resulted Laboratory Tests 11/06/20 23:24: POC Whole Blood Glucose 147H 11/07/20 05:37: POC Whole Blood Glucose 212H Current Medications Medications (Trade) Dose Ordered Sig/Prateek Route PRN Reason Start Time Stop Time Status Last Admin Dose Admin Amlodipine Besylate (Norvasc) 10 mg DAILY ORAL 11/07/20 09:00 12/07/20 08:59 Atorvastatin Calcium (Lipitor) 10 mg BEDTIME ORAL 11/06/20 21:00 02/04/21 20:59 11/07/20 00:15 Carvedilol (Coreg) 12.5 mg EVERY 12 HOURS ORAL 11/06/20 21:00 12/06/20 20:59 11/07/20 00:15 Dextrose (Dextrose 50%) 25 ml Q30M PRN IV Hypoglycemia 11/06/20 18:15 02/04/21 18:14 Dextrose (Dextrose 50%) 50 ml Q30M PRN IV Hypoglycemia 11/06/20 18:15 02/04/21 18:14 Furosemide (Lasix) 40 mg BID ORAL 11/07/20 09:00 12/07/20 08:59 UNV Furosemide (Lasix) 40 mg EVERY 12 HOURS IV 11/06/20 21:00 12/06/20 20:59 11/07/20 00:14 Insulin Aspart (NovoLOG) BEFORE MEALS AND HS SUBQ 11/06/20 21:00 02/04/21 20:59 Losartan Potassium (Cozaar) 100 mg DAILY ORAL 11/07/20 09:00 12/07/20 08:59 Nitroglycerin (Ntg) 0.4 mg Q5M PRN SL Prn Chest Pain 11/06/20 02:45 12/06/20 02:44 11/06/20 02:44 Sitagliptin Phosphate (Januvia) 25 mg DAILY ORAL 11/07/20 09:00 12/07/20 08:59 Spironolactone (Aldactone) 50 mg DAILY ORAL 11/07/20 09:00 12/07/20 08:59 Warfarin Sodium (Coumadin per pharmacy) 1 ea DAILY PRN MISC Per rx protocol 11/06/20 15:00 12/06/20 14:59 Assessment/Plan Assessment/Plan IMPRESSION: 1. Decompensated congestive heart failure. 2. Renal insufficiency. 3. Hypertension. 4. Diabetes mellitus. DISCUSSION: She is off BiPAP now. Saturating well on 4L/min O2 I have consulted Cardiology and Nephrology. Diabetes monitoring. I will follow carefully. Diurese Geraldine Mayen Omar Syed MD Nov 07, 2020 05:54
[2020-11-07] MEDS: NovoLOG Insulin Flexpen SUBQ SCH ×3 (06:57→21:00)
[2020-11-07 07:14] LABS: BASOPHILS % (AUTO) 0.7 % (0.0-2.0); EOSINOPHILS % (AUTO) 1.9 % (0.0-3.0); HEMATOCRIT 30.9 % (37.0-47.0); HEMOGLOBIN 10.2 G/DL (12.0-16.0); MEAN CORPUSCULAR VOLUME 83 FL (80-99); MONOCYTES % (AUTO) 10.7 % (1.0-10.0); NEUTROPHILS % (AUTO) 66.7 % (45.0-75.0); PLATELET COUNT 204 K/UL (150-450); RED CELL DISTRIBUTION WIDTH 13.3 % (11.6-14.8); WHITE BLOOD COUNT 10.4 K/UL (4.8-10.8)
[2020-11-07 07:21] LABS: INR 2.9 (0.9-1.1)
[2020-11-07 08:00] VITALS: BP 139/71
[2020-11-07 08:39] LABS: ALANINE AMINOTRANSFERASE 26 U/L (12-78); ALBUMIN/GLOBULIN RATIO 0.7 (1.0-2.7); ALKALINE PHOSPHATASE 121 U/L (46-116); ANION GAP 6 mmol/L (5-15); ASPARTATE AMINO TRANSFERASE 36 U/L (15-37); BILIRUBIN,TOTAL 0.3 MG/DL (0.2-1.0); BLOOD UREA NITROGEN 42 mg/dL (7-18); CALCIUM 8.6 MG/DL (8.5-10.1); CARBON DIOXIDE 28 MMOL/L (21-32); CHLORIDE 103 MMOL/L (98-107); CHOLESTEROL 137 MG/DL (< 200); CREATININE 2.6 MG/DL (0.55-1.30); HDL CHOLESTEROL 48 MG/DL (40-60); POTASSIUM 3.9 MMOL/L (3.5-5.1); SODIUM 137 MMOL/L (136-145); TRIGLYCERIDES 82 MG/DL (30-150)
[2020-11-07] MEDS ORDERED: Spironolactone 50mg tab ORAL SCH (09:00)
[2020-11-07] MEDS ORDERED: Losartan 50mg tab ORAL SCH (09:00)
[2020-11-07] MEDS ORDERED: metFORMIN 500mg tab ORAL SCH (09:00)
[2020-11-07] MEDS ORDERED: Furosemide 40mg tab ORAL SCH (09:00)
[2020-11-07] MEDS: sitaGLIPtin 25mg tab ORAL SCH (09:03)
[2020-11-07 12:00] VITALS: BP 150/64
--- NOTE | 2020-11-07 13:33 | Consultation ---
History of Present Illness General Chief Complaint: Dyspnea/Respdistress Reason for Consultation: GEORGE, Present Illness HPI This is a 80 year old female with past medical history of DM, HTN, HLD, CKD III presenting with progressively worsening dyspnea on exertion- Patient normally uses home oxygen. Had adequate oxygen saturation prior to arrival. Patient had increased work of breathing. Patient is normally anticoagulated with Coumadin. Prior history of diabetes as well as atrial fibrillation, she has cardiac pacer. Allergies: Coded Allergies: No Known Allergies (Unverified , 05/01/13) Medication History Scheduled Amlodipine Bes/Olmesartan Med (Edouard 10-20 Mg Tablet), 1 TAB ORAL DAILY, (Reported) Amlodipine Besylate* (Amlodipine Besylate*), 10 MG ORAL DAILY, (Reported) Atenolol* (Tenormin*), 100 MG ORAL DAILY, (Reported) Atorvastatin Calcium* (Atorvastatin Calcium*), 10 MG ORAL BEDTIME, (Reported) Carvedilol* (Carvedilol*), 12.5 MG ORAL EVERY 12 HOURS, (Reported) Furosemide* (Lasix*), 40 MG ORAL BID Losartan Potassium* (Losartan Potassium*), 100 MG ORAL DAILY, (Reported) Metformin Hcl* (Metformin Hcl*), 500 MG ORAL TWICE A DAY, (Reported) Metoprolol Succinate* (Toprol Xl*), 100 MG ORAL DAILY Sitagliptin* (Januvia*), 25 MG ORAL DAILY, (Reported) Spironolactone (Aldactone), 50 MG ORAL DAILY Warfarin Sod* (Warfarin Sod*), 10 MG ORAL DAILY, (Reported) Warfarin Sod* (Warfarin Sod*), 10 MG ORAL DAILY, (Reported) Miscellaneous Medications Aspirin (Mathieu Chewable), 81 MG PO, (Reported) Patient History Healthcare decision maker Resuscitation status Advanced Directive on File Review of Systems All Other Systems: negative except mentioned in HPI Physical Exam General Appearance: no apparent distress, alert Lines, tubes and drains: peripheral HEENT: normocephalic, atraumatic Neck: non-tender, normal alignment Respiratory/Chest: crackles/rales Cardiovascular/Chest: normal peripheral pulses, tachycardia, irregularly irregular Abdomen: normal bowel sounds Extremities: non-tender, pitting Last 24 Hour Vital Signs Date Time Temp Pulse Resp B/P (MAP) Pulse Ox O2 Delivery O2 Flow Rate FiO2 11/07/20 12:00 2.0 11/07/20 12:00 80 11/07/20 12:00 97.2 81 18 150/64 (92) 96 11/07/20 12:00 Nasal Cannula 2.0 11/07/20 09:04 80 139/71 11/07/20 09:03 139 11/07/20 09:00 2.0 11/07/20 08:58 139/71 11/07/20 08:00 Nasal Cannula 4.0 11/07/20 08:00 84 11/07/20 08:00 97.0 90 18 139/71 (93) 100 11/07/20 04:00 4.0 11/07/20 04:00 97.7 80 18 125/61 (82) 100 11/07/20 04:00 Nasal Cannula 4.0 11/07/20 03:36 74 11/07/20 00:15 89 148/71 11/07/20 00:00 Nasal Cannula 4.0 11/07/20 00:00 4.0 11/06/20 23:43 82 11/06/20 23:20 96.4 89 18 148/71 (96) 99 11/06/20 23:10 97.2 96 23 136/76 98 Room Air 4.0 32 11/06/20 22:45 97.2 96 23 136/76 98 Room Air 4.0 11/06/20 19:21 97.6 98 21 145/73 97 Room Air 4.0 11/06/20 19:07 99 32 11/06/20 17:35 97.8 77 22 132/71 98 Room Air 11/06/20 15:00 84 20 100 30 11/06/20 13:54 97.6 80 17 157/63 100 Bi-pap Intake and Output 11/06/20 11/07/20 19:00 07:00 Intake Total 200 ml Output Total 850 ml Balance -650 ml Intake Oral 200 ml Output Urine Total 850 ml Laboratory Tests Test 11/06/20 23:24 11/07/20 03:30 11/07/20 05:37 POC Whole Blood Glucose 147 MG/DL (74-106) H 212 MG/DL (74-106) H White Blood Count 10.4 K/UL (4.8-10.8) Red Blood Count 3.70 M/UL (4.20-5.40) L Hemoglobin 10.2 G/DL (12.0-16.0) L Hematocrit 30.9 % (37.0-47.0) L Mean Corpuscular Volume 83 FL (80-99) Mean Corpuscular Hemoglobin 27.5 PG (27.0-31.0) Mean Corpuscular Hemoglobin Concent 33.0 G/DL (32.0-36.0) Red Cell Distribution Width 13.3 % (11.6-14.8) Platelet Count 204 K/UL (150-450) Mean Platelet Volume 10.8 FL (6.5-10.1) H Neutrophils (%) (Auto) 66.7 % (45.0-75.0) Lymphocytes (%) (Auto) 20.0 % (20.0-45.0) Monocytes (%) (Auto) 10.7 % (1.0-10.0) H Eosinophils (%) (Auto) 1.9 % (0.0-3.0) Basophils (%) (Auto) 0.7 % (0.0-2.0) Prothrombin Time 29.0 SEC (9.30-11.50) H Prothromb Time International Ratio 2.9 (0.9-1.1) H Sodium Level 137 MMOL/L (136-145) Potassium Level 3.9 MMOL/L (3.5-5.1) Chloride Level 103 MMOL/L (98-107) Carbon Dioxide Level 28 MMOL/L (21-32) Anion Gap 6 mmol/L (5-15) Blood Urea Nitrogen 42 mg/dL (7-18) H Creatinine 2.6 MG/DL (0.55-1.30) H Estimat Glomerular Filtration Rate 17.7 mL/min (>60) Glucose Level 181 MG/DL (74-106) #H Hemoglobin A1c 7.0 % (4.3-6.0) H Calcium Level 8.6 MG/DL (8.5-10.1) Magnesium Level 1.9 MG/DL (1.8-2.4) Total Bilirubin 0.3 MG/DL (0.2-1.0) Aspartate Amino Transf (AST/SGOT) 36 U/L (15-37) Alanine Aminotransferase (ALT/SGPT) 26 U/L (12-78) Alkaline Phosphatase 121 U/L (46-116) H Troponin I 3.936 ng/mL (0.000-0.056) Pro-B-Type Natriuretic Peptide > 43139 pg/mL (0-125) H Total Protein 7.4 G/DL (6.4-8.2) Albumin 3.0 G/DL (3.4-5.0) L Globulin 4.4 g/dL Albumin/Globulin Ratio 0.7 (1.0-2.7) L Triglycerides Level 82 MG/DL (30-150) Cholesterol Level 137 MG/DL (< 200) LDL Cholesterol 72 mg/dL (<100) HDL Cholesterol 48 MG/DL (40-60) Cholesterol/HDL Ratio 2.9 (3.3-4.4) L Thyroid Stimulating Hormone (TSH) 2.146 uiU/mL (0.358-3.740) Height (Feet): 5 Height (Inches): 8.00 Weight (Pounds): 165 Medications Current Medications Medications (Trade) Dose Ordered Sig/Prateek Route PRN Reason Start Time Stop Time Status Last Admin Dose Admin Amlodipine Besylate (Norvasc) 10 mg DAILY ORAL 11/07/20 09:00 12/07/20 08:59 11/07/20 09:04 Atorvastatin Calcium (Lipitor) 10 mg BEDTIME ORAL 11/06/20 21:00 02/04/21 20:59 11/07/20 00:15 Carvedilol (Coreg) 12.5 mg EVERY 12 HOURS ORAL 11/06/20 21:00 12/06/20 20:59 11/07/20 09:03 Dextrose (Dextrose 50%) 25 ml Q30M PRN IV Hypoglycemia 11/06/20 18:15 02/04/21 18:14 Dextrose (Dextrose 50%) 50 ml Q30M PRN IV Hypoglycemia 11/06/20 18:15 02/04/21 18:14 Furosemide (Lasix) 40 mg BID ORAL 11/07/20 09:00 12/07/20 08:59 UNV Furosemide (Lasix) 40 mg EVERY 12 HOURS IV 11/06/20 21:00 12/06/20 20:59 11/07/20 09:04 Insulin Aspart (NovoLOG) BEFORE MEALS AND HS SUBQ 11/06/20 21:00 02/04/21 20:59 11/07/20 12:16 Losartan Potassium (Cozaar) 100 mg DAILY ORAL 11/07/20 09:00 12/07/20 08:59 11/07/20 08:58 Nitroglycerin (Ntg) 0.4 mg Q5M PRN SL Prn Chest Pain 11/06/20 02:45 12/06/20 02:44 11/06/20 02:44 Sitagliptin Phosphate (Januvia) 25 mg DAILY ORAL 11/07/20 09:00 12/07/20 08:59 11/07/20 09:03 Spironolactone (Aldactone) 50 mg DAILY ORAL 11/07/20 09:00 12/07/20 08:59 11/07/20 09:04 Warfarin Sodium (Coumadin per pharmacy) 1 ea DAILY PRN MISC Per rx protocol 11/06/20 15:00 12/06/20 14:59 Assessment/Plan Diagnosis [place] I: #GEORGE on CKDIII- due to CRS1 #Acute decompensated CHF #DM #HTN #COPD #Afib on coumadin #HLD - continue diuresis with lasix 40 IV daily - renal US - monitor K and mag closley - hold metformin - hold aldactone for now - consider holding losartan 100mg daily if Cr rises - januvia 25mg daily - continue amlodipine 10mg daily - continue coreg 12.5mg BID - continue lipitor 10 - monitor daily weights - avoid nephrotoxins Time spent 65min Judith Garland M.D. Nov 07, 2020 13:32
--- NOTE | 2020-11-07 14:44 | Diagnostic Imaging Report ---
EXAM: US Retroperitoneal Complete, Renal CLINICAL HISTORY: RENAL-C TECHNIQUE: Real-time complete ultrasound of the retroperitoneum with image documentation. COMPARISON: No relevant prior studies available. FINDINGS: Right kidney: 2.77 x 2.75 x 1.98 cm anechoic cyst at the right kidney. Right kidney measures 10.3 x 5.19 x 5.8 cm. Mildly echogenic renal cortex. No stones. No hydronephrosis. Left kidney: Left kidney measures 10.65 x 5.41 x 5.03 cm. Mildly echogenic renal cortex. No stones. No hydronephrosis. Bladder: Smith catheter in the urinary bladder. IMPRESSION: 1. 2.77 x 2.75 x 1.98 cm anechoic cyst at the right kidney. 2. Mild echogenic bilateral renal cortex may be medical renal disease. No hydronephrosis.
--- NOTE | 2020-11-07 15:56 | Cardiac Electrophysiology PN ---
Assessment/Plan Assessment/Plan 1. Exacerbation of congestive heart failure Echocardiogram showed [place] 20% [place] [address]. Continue Lasix 40 mg IV b.i.d. Add Coreg, Hydralazine and Isordil to he regimen 2. Acute MN with LBBB. No chest pain. Will need cardiac cath as troponin was initially negative and EF 20% when renal failure stabilizes Add Aspirin, Coreg and Lipitor and Isordil 3. Paroxysmal atrial fibrillation. On Coumadin. INR is 1.8. 4. LBBB 5. COPD, on home oxygen. 6. Hypertension. Continue Lasix. 7. Diabetes. 8. Renal failure with Cr 2.6. DW RN Subjective Subjective Feeling better on Lasix. ECG showed LBBB. Troponin 3.96 but no chest pain Objective Last 24 Hour Vital Signs Date Time Temp Pulse Resp B/P (MAP) Pulse Ox O2 Delivery O2 Flow Rate FiO2 11/07/20 12:00 2.0 11/07/20 12:00 80 11/07/20 12:00 97.2 81 18 150/64 (92) 96 11/07/20 12:00 Nasal Cannula 2.0 11/07/20 09:04 80 139/71 11/07/20 09:03 139 11/07/20 09:00 2.0 11/07/20 08:58 139/71 11/07/20 08:00 Nasal Cannula 4.0 11/07/20 08:00 84 11/07/20 08:00 97.0 90 18 139/71 (93) 100 11/07/20 04:00 4.0 11/07/20 04:00 97.7 80 18 125/61 (82) 100 11/07/20 04:00 Nasal Cannula 4.0 11/07/20 03:36 74 11/07/20 00:15 89 148/71 11/07/20 00:00 Nasal Cannula 4.0 11/07/20 00:00 4.0 11/06/20 23:43 82 11/06/20 23:20 96.4 89 18 148/71 (96) 99 11/06/20 23:10 97.2 96 23 136/76 98 Room Air 4.0 32 11/06/20 22:45 97.2 96 23 136/76 98 Room Air 4.0 11/06/20 19:21 97.6 98 21 145/73 97 Room Air 4.0 11/06/20 19:07 99 32 11/06/20 17:35 97.8 77 22 132/71 98 Room Air Intake and Output 11/06/20 11/07/20 19:00 07:00 Intake Total 200 ml Output Total 850 ml Balance -650 ml Intake Oral 200 ml Output Urine Total 850 ml Laboratory Tests Test 11/06/20 23:24 11/07/20 03:30 11/07/20 05:37 POC Whole Blood Glucose 147 MG/DL (74-106) H 212 MG/DL (74-106) H White Blood Count 10.4 K/UL (4.8-10.8) Red Blood Count 3.70 M/UL (4.20-5.40) L Hemoglobin 10.2 G/DL (12.0-16.0) L Hematocrit 30.9 % (37.0-47.0) L Mean Corpuscular Volume 83 FL (80-99) Mean Corpuscular Hemoglobin 27.5 PG (27.0-31.0) Mean Corpuscular Hemoglobin Concent 33.0 G/DL (32.0-36.0) Red Cell Distribution Width 13.3 % (11.6-14.8) Platelet Count 204 K/UL (150-450) Mean Platelet Volume 10.8 FL (6.5-10.1) H Neutrophils (%) (Auto) 66.7 % (45.0-75.0) Lymphocytes (%) (Auto) 20.0 % (20.0-45.0) Monocytes (%) (Auto) 10.7 % (1.0-10.0) H Eosinophils (%) (Auto) 1.9 % (0.0-3.0) Basophils (%) (Auto) 0.7 % (0.0-2.0) Prothrombin Time 29.0 SEC (9.30-11.50) H Prothromb Time International Ratio 2.9 (0.9-1.1) H Sodium Level 137 MMOL/L (136-145) Potassium Level 3.9 MMOL/L (3.5-5.1) Chloride Level 103 MMOL/L (98-107) Carbon Dioxide Level 28 MMOL/L (21-32) Anion Gap 6 mmol/L (5-15) Blood Urea Nitrogen 42 mg/dL (7-18) H Creatinine 2.6 MG/DL (0.55-1.30) H Estimat Glomerular Filtration Rate 17.7 mL/min (>60) Glucose Level 181 MG/DL (74-106) #H Hemoglobin A1c 7.0 % (4.3-6.0) H Calcium Level 8.6 MG/DL (8.5-10.1) Magnesium Level 1.9 MG/DL (1.8-2.4) Total Bilirubin 0.3 MG/DL (0.2-1.0) Aspartate Amino Transf (AST/SGOT) 36 U/L (15-37) Alanine Aminotransferase (ALT/SGPT) 26 U/L (12-78) Alkaline Phosphatase 121 U/L (46-116) H Troponin I 3.936 ng/mL (0.000-0.056) Pro-B-Type Natriuretic Peptide > 45860 pg/mL (0-125) H Total Protein 7.4 G/DL (6.4-8.2) Albumin 3.0 G/DL (3.4-5.0) L Globulin 4.4 g/dL Albumin/Globulin Ratio 0.7 (1.0-2.7) L Triglycerides Level 82 MG/DL (30-150) Cholesterol Level 137 MG/DL (< 200) LDL Cholesterol 72 mg/dL (<100) HDL Cholesterol 48 MG/DL (40-60) Cholesterol/HDL Ratio 2.9 (3.3-4.4) L Thyroid Stimulating Hormone (TSH) 2.146 uiU/mL (0.358-3.740) Microbiology Date/Time Source Procedure Growth Status 11/06/20 03:35 Urine,Clean Catch Urine Culture - Preliminary NO GROWTH Resulted 11/06/20 02:40 Blood Blood Culture - Preliminary NO GROWTH AFTER 24 HOURS Resulted 11/06/20 02:35 Nasopharynx SARS-CoV-2 RdRp Gene Assay - Final Complete 11/06/20 02:25 Blood Blood Culture - Preliminary NO GROWTH AFTER 24 HOURS Resulted Objective HEAD AND NECK: Shows positive JVD. On Nasal cannula LUNGS: Coarse rhonchi. CARDIOVASCULAR: Shows regular S1 and S2 with no gallop. ABDOMEN: Soft. EXTREMITIES: 1+ pitting edema. John Nye MD Nov 07, 2020 15:56
[2020-11-07 16:00] VITALS: BP 134/68
[2020-11-07 20:00] VITALS: BP 135/83
[2020-11-07] MEDS: HydrALAZINE 50mg tab ORAL SCH (21:08)
[2020-11-08] VITALS: BP 133/85
[2020-11-08 03:50] LABS: BASOPHILS % (AUTO) 1.1 % (0.0-2.0); EOSINOPHILS % (AUTO) 2.6 % (0.0-3.0); HEMATOCRIT 29.3 % (37.0-47.0); HEMOGLOBIN 10.1 G/DL (12.0-16.0); MEAN CORPUSCULAR VOLUME 82 FL (80-99); MONOCYTES % (AUTO) 8.6 % (1.0-10.0); NEUTROPHILS % (AUTO) 70.8 % (45.0-75.0); PLATELET COUNT 217 K/UL (150-450); RED CELL DISTRIBUTION WIDTH 13.8 % (11.6-14.8); WHITE BLOOD COUNT 13.1 K/UL (4.8-10.8)
[2020-11-08 03:53] LABS: INR 2.3 (0.9-1.1)
[2020-11-08 03:56] LABS: CALCIUM 8.8 MG/DL (8.5-10.1); POTASSIUM 4.3 MMOL/L (3.5-5.1)
[2020-11-08 03:59] LABS: PHOSPHORUS 3.8 MG/DL (2.5-4.9)
[2020-11-08 04:00] VITALS: BP 120/69
[2020-11-08] MEDS: NovoLOG Insulin Flexpen SUBQ SCH ×4 (06:30→21:00)
[2020-11-08 08:00] VITALS: BP 137/84
--- NOTE | 2020-11-08 09:02 | Pulmonology Progress Note ---
Subjective Interval Events: Looking better Constitutional: Reports: no symptoms HEENT: Repors: no symptoms Respiratory: Reports: no symptoms Cardiovascular: Reports: no symptoms Gastrointestinal/Abdominal: Reports: no symptoms Genitourinary: Reports: no symptoms Allergies: Coded Allergies: No Known Allergies (Unverified , 05/01/13) Objective Last 24 Hour Vital Signs Date Time Temp Pulse Resp B/P (MAP) Pulse Ox O2 Delivery O2 Flow Rate FiO2 11/08/20 04:00 Nasal Cannula 2.0 11/08/20 04:00 2.0 11/08/20 04:00 96.6 85 20 120/69 (86) 96 11/08/20 04:00 86 11/08/20 00:00 74 11/08/20 00:00 97.9 88 20 133/85 (101) 97 11/08/20 00:00 Nasal Cannula 2.0 11/08/20 00:00 2.0 11/07/20 21:08 135/83 11/07/20 21:08 81 135/83 11/07/20 20:00 2.0 11/07/20 20:00 Nasal Cannula 2.0 11/07/20 20:00 86 11/07/20 20:00 97.7 81 20 135/83 (100) 97 11/07/20 18:00 120/69 11/07/20 16:00 2.0 11/07/20 16:00 Nasal Cannula 2.0 11/07/20 16:00 97.7 83 18 134/68 (90) 97 11/07/20 16:00 84 11/07/20 12:00 2.0 11/07/20 12:00 80 11/07/20 12:00 97.2 81 18 150/64 (92) 96 11/07/20 12:00 Nasal Cannula 2.0 11/07/20 09:04 80 139/71 11/07/20 09:03 139 Intake and Output 11/07/20 11/08/20 19:00 07:00 Intake Total 550 ml 250 ml Output Total 800 ml 600 ml Balance -250 ml -350 ml Intake Oral 550 ml 250 ml Output Urine Total 800 ml 600 ml General Appearance: no acute distress HEENT: normocephalic Respiratory: chest wall non-tender, decreased breath sounds Cardiovascular: normal peripheral pulses Abdomen: normal bowel sounds Microbiology Date/Time Source Procedure Growth Status 12/11/20 03:35 Urine,Clean Catch Urine Culture - Final NO GROWTH AFTER 48 HOURS Complete 11/06/20 02:40 Blood Blood Culture - Preliminary NO GROWTH AFTER 24 HOURS Resulted 11/06/20 02:35 Nasopharynx SARS-CoV-2 RdRp Gene Assay - Final Complete 11/06/20 02:25 Blood Blood Culture - Preliminary NO GROWTH AFTER 24 HOURS Resulted Laboratory Tests 11/07/20 18:05: Troponin I 2.319H 11/08/20 03:00: Troponin I 1.816H, White Blood Count 13.1H, Red Blood Count 3.60L, Hemoglobin 10.1L, Hematocrit 29.3L, Mean Corpuscular Volume 82, Mean Corpuscular Hemoglobin 28.2, Mean Corpuscular Hemoglobin Concent 34.6, Red Cell Distribution Width 13.8, Platelet Count 217, Mean Platelet Volume 10.7H, Neutrophils (%) (Auto) 70.8, Lymphocytes (%) (Auto) 17.0L, Monocytes (%) (Auto) 8.6, Eosinophils (%) (Auto) 2.6, Basophils (%) (Auto) 1.1, Prothrombin Time 23.9H, Prothromb Time International Ratio 2.3H, Sodium Level 137, Potassium Level 4.3, Chloride Level 102, Carbon Dioxide Level 25, Anion Gap 10, Blood Urea Nitrogen 49H, Creatinine 3.0H, Estimat Glomerular Filtration Rate 15.0, Glucose Level 132H, Calcium Level 8.8, Phosphorus Level 3.8, Magnesium Level 1.8 Current Medications Medications (Trade) Dose Ordered Sig/Prateek Route PRN Reason Start Time Stop Time Status Last Admin Dose Admin Aspirin (Ecotrin) 81 mg DAILY ORAL 11/08/20 09:00 12/23/20 08:59 Atorvastatin Calcium (Lipitor) 10 mg BEDTIME ORAL 11/06/20 21:00 02/04/21 20:59 11/07/20 21:08 Carvedilol (Coreg) 12.5 mg EVERY 12 HOURS ORAL 11/06/20 21:00 12/06/20 20:59 11/07/20 21:08 Dextrose (Dextrose 50%) 25 ml Q30M PRN IV Hypoglycemia 11/06/20 18:15 02/04/21 18:14 Dextrose (Dextrose 50%) 50 ml Q30M PRN IV Hypoglycemia 11/06/20 18:15 02/04/21 18:14 Furosemide (Lasix) 40 mg EVERY 12 HOURS IV 11/06/20 21:00 12/06/20 20:59 11/07/20 21:09 Hydralazine HCl (Apresoline) 50 mg Q12HR ORAL 11/07/20 21:00 02/05/21 20:59 11/07/20 21:08 Insulin Aspart (NovoLOG) BEFORE MEALS AND HS SUBQ 11/06/20 21:00 02/04/21 20:59 11/07/20 12:16 Isosorbide Dinitrate (Isordil) 20 mg BID ORAL 11/07/20 18:00 12/07/20 17:59 Nitroglycerin (Ntg) 0.4 mg Q5M PRN SL Prn Chest Pain 11/06/20 02:45 12/06/20 02:44 11/06/20 02:44 Sitagliptin Phosphate (Januvia) 25 mg DAILY ORAL 11/07/20 09:00 12/07/20 08:59 11/07/20 09:03 Warfarin Sodium (Coumadin per pharmacy) 1 ea DAILY PRN MISC Per rx protocol 11/06/20 15:00 12/06/20 14:59 Warfarin Sodium (Coumadin) 2.5 mg ONCE ORAL 11/08/20 17:00 11/08/20 18:00 Warfarin Sodium (Coumadin) 5 mg ONCE ORAL 11/08/20 17:00 11/08/20 18:00 Assessment/Plan Assessment/Plan IMPRESSION: 1. Decompensated congestive heart failure. 2. Renal insufficiency. 3. Hypertension. 4. Diabetes mellitus. DISCUSSION: She is off BiPAP now. Saturating well on 2L/min O2 Seen by Cardiology and Nephrology. Diabetes monitoring. Renal function worse Will hold diuretics Leave cabrera in I will follow carefully. Diureses on hold Fluid challenge today Discussed with son Víctor Espinosa M.D. Víctor Espinosa MD Nov 08, 2020 09:02
[2020-11-08] MEDS: HydrALAZINE 50mg tab ORAL SCH ×2 (09:30→21:58)
[2020-11-08] MEDS: sitaGLIPtin 25mg tab ORAL SCH (09:31)
[2020-11-08] MEDS: Aspirin EC 81mg tab ORAL SCH (09:31)
[2020-11-08] MEDS: Carvedilol 12.5mg tab ORAL SCH ×2 (09:31→21:58)
--- NOTE | 2020-11-08 09:39 | Nephrology Progress Note ---
Assessment/Plan Plan #GEORGE on CKDIII- due to CRS1 #Acute decompensated CHF #DM #HTN #COPD #Afib on coumadin #HLD - hold lasix - hold losartan - NS 500 ccx1 - maintain cabrera - renal US- reviewed - monitor K and mag closley - hold metformin - hold aldactone for now - januvia 25mg daily - continue amlodipine 10mg daily - continue coreg 12.5mg BID - continue lipitor 10 - monitor daily weights - avoid nephrotoxins Time spent 65min Subjective ROS Limited/Unobtainable: No Constitutional: Reports: weakness HEENT: Denies: no symptoms, eye pain, blurred vision, tearing, double vision, ear pain, ear discharge, nose pain, nose congestion, throat pain, throat swelling, mouth pain, mouth swelling, other Genitourinary: Denies: no symptoms, burning, discharge, frequency, flank pain, hematuria, incontinence, pain, urgency, other Neurologic/Psychiatric: Denies: no symptoms, anxiety, depressed, emotional problems, headache, numbness, paresthesia, pre-existing deficit, seizure, tingling, tremors, weakness, other Subjective Cr up 3.0 DC lasix DC losartan NS 500x1 UOP 1400 yesterday renal US: 1. 2.77 x 2.75 x 1.98 cm anechoic cyst at the right kidney. 2. Mild echogenic bilateral renal cortex may be medical renal disease. No hydronephrosis. Objective Objective Last 24 Hour Vital Signs Date Time Temp Pulse Resp B/P (MAP) Pulse Ox O2 Delivery O2 Flow Rate FiO2 11/08/20 09:31 137/84 11/08/20 09:31 74 137/84 11/08/20 09:30 137/84 11/08/20 04:00 Nasal Cannula 2.0 11/08/20 04:00 2.0 11/08/20 04:00 96.6 85 20 120/69 (86) 96 11/08/20 04:00 86 11/08/20 00:00 74 11/08/20 00:00 97.9 88 20 133/85 (101) 97 11/08/20 00:00 Nasal Cannula 2.0 11/08/20 00:00 2.0 11/07/20 21:08 135/83 11/07/20 21:08 81 135/83 11/07/20 20:00 2.0 11/07/20 20:00 Nasal Cannula 2.0 11/07/20 20:00 86 11/07/20 20:00 97.7 81 20 135/83 (100) 97 11/07/20 18:00 120/69 11/07/20 16:00 2.0 11/07/20 16:00 Nasal Cannula 2.0 11/07/20 16:00 97.7 83 18 134/68 (90) 97 11/07/20 16:00 84 11/07/20 12:00 2.0 11/07/20 12:00 80 11/07/20 12:00 97.2 81 18 150/64 (92) 96 11/07/20 12:00 Nasal Cannula 2.0 Intake and Output 11/07/20 11/08/20 19:00 07:00 Intake Total 550 ml 250 ml Output Total 800 ml 600 ml Balance -250 ml -350 ml Intake Oral 550 ml 250 ml Output Urine Total 800 ml 600 ml Laboratory Tests 11/07/20 18:05: Troponin I 2.319H 11/08/20 03:00: Troponin I 1.816H, White Blood Count 13.1H, Red Blood Count 3.60L, Hemoglobin 10.1L, Hematocrit 29.3L, Mean Corpuscular Volume 82, Mean Corpuscular Hemoglobin 28.2, Mean Corpuscular Hemoglobin Concent 34.6, Red Cell Distribution Width 13.8, Platelet Count 217, Mean Platelet Volume 10.7H, Neutrophils (%) (Auto) 70.8, Lymphocytes (%) (Auto) 17.0L, Monocytes (%) (Auto) 8.6, Eosinophils (%) (Auto) 2.6, Basophils (%) (Auto) 1.1, Prothrombin Time 23.9H, Prothromb Time International Ratio 2.3H, Sodium Level 137, Potassium Level 4.3, Chloride Level 102, Carbon Dioxide Level 25, Anion Gap 10, Blood Urea Nitrogen 49H, Creatinine 3.0H, Estimat Glomerular Filtration Rate 15.0, Glucose Level 132H, Calcium Level 8.8, Phosphorus Level 3.8, Magnesium Level 1.8 Height (Feet): 5 Height (Inches): 8.00 Weight (Pounds): 165 General Appearance: no apparent distress, alert EENT: PERRL/EOMI, normal ENT inspection Neck: non-tender, normal alignment, supple Cardiovascular: normal peripheral pulses, normal rate, regular rhythm Respiratory/Chest: chest wall non-tender, rhonchi - bilaterally Abdomen: normal bowel sounds, non tender Extremities: normal range of motion, non-tender Neurologic: alert, oriented x 3 Judith Garland M.D. Nov 08, 2020 09:39
[2020-11-08 12:00] VITALS: BP 147/66
[2020-11-08] MEDS ORDERED: NS 250 ML IVPB ONE (12:45)
--- NOTE | 2020-11-08 15:33 | Cardiac Electrophysiology PN ---
Assessment/Plan Assessment/Plan 1. Exacerbation of congestive heart failure Echocardiogram showed EF 20% [place] [address]. Off Lasix in view of ARF On Coreg 12.5 bid, Hydralazine 50 bid and Isordil 2. Acute PR with LBBB and EF 20. No chest pain. Will need cardiac cath when renal failure stabilizes No CP or Aspirin, Coreg and Lipitor and Isordil 3. Paroxysmal atrial fibrillation. On Coumadin. INR is 1.8. 4. LBBB 5. COPD, on home oxygen. 6. Hypertension. Continue Lasix. 7. Diabetes. 8. Renal failure with Cr 2.6. Lasix DCed as Cr up to 3 DW RN Subjective Subjective ECG showed LBBB.EF 20% Troponin 3.96 but no chest pain. Lasix was DCed as ARF was getting worse Objective Last 24 Hour Vital Signs Date Time Temp Pulse Resp B/P (MAP) Pulse Ox O2 Delivery O2 Flow Rate FiO2 11/08/20 12:00 Nasal Cannula 2.0 11/08/20 09:31 137/84 11/08/20 09:31 74 137/84 11/08/20 09:30 137/84 11/08/20 08:00 Nasal Cannula 2.0 11/08/20 08:00 2.0 11/08/20 08:00 86 11/08/20 08:00 98.1 74 20 137/84 (101) 94 11/08/20 04:00 Nasal Cannula 2.0 11/08/20 04:00 2.0 11/08/20 04:00 96.6 85 20 120/69 (86) 96 11/08/20 04:00 86 11/08/20 00:00 74 11/08/20 00:00 97.9 88 20 133/85 (101) 97 11/08/20 00:00 Nasal Cannula 2.0 11/08/20 00:00 2.0 11/07/20 21:08 135/83 11/07/20 21:08 81 135/83 11/07/20 20:00 2.0 11/07/20 20:00 Nasal Cannula 2.0 11/07/20 20:00 86 11/07/20 20:00 97.7 81 20 135/83 (100) 97 11/07/20 18:00 120/69 11/07/20 16:00 2.0 11/07/20 16:00 Nasal Cannula 2.0 11/07/20 16:00 97.7 83 18 134/68 (90) 97 11/07/20 16:00 84 Intake and Output 11/07/20 11/08/20 19:00 07:00 Intake Total 550 ml 250 ml Output Total 800 ml 600 ml Balance -250 ml -350 ml Intake Oral 550 ml 250 ml Output Urine Total 800 ml 600 ml Laboratory Tests Test 11/07/20 18:05 11/08/20 03:00 Troponin I 2.319 ng/mL (0.000-0.056) 1.816 ng/mL (0.000-0.056) White Blood Count 13.1 K/UL (4.8-10.8) H Red Blood Count 3.60 M/UL (4.20-5.40) L Hemoglobin 10.1 G/DL (12.0-16.0) L Hematocrit 29.3 % (37.0-47.0) L Mean Corpuscular Volume 82 FL (80-99) Mean Corpuscular Hemoglobin 28.2 PG (27.0-31.0) Mean Corpuscular Hemoglobin Concent 34.6 G/DL (32.0-36.0) Red Cell Distribution Width 13.8 % (11.6-14.8) Platelet Count 217 K/UL (150-450) Mean Platelet Volume 10.7 FL (6.5-10.1) H Neutrophils (%) (Auto) 70.8 % (45.0-75.0) Lymphocytes (%) (Auto) 17.0 % (20.0-45.0) L Monocytes (%) (Auto) 8.6 % (1.0-10.0) Eosinophils (%) (Auto) 2.6 % (0.0-3.0) Basophils (%) (Auto) 1.1 % (0.0-2.0) Prothrombin Time 23.9 SEC (9.30-11.50) H Prothromb Time International Ratio 2.3 (0.9-1.1) H Sodium Level 137 MMOL/L (136-145) Potassium Level 4.3 MMOL/L (3.5-5.1) Chloride Level 102 MMOL/L (98-107) Carbon Dioxide Level 25 MMOL/L (21-32) Anion Gap 10 mmol/L (5-15) Blood Urea Nitrogen 49 mg/dL (7-18) H Creatinine 3.0 MG/DL (0.55-1.30) H Estimat Glomerular Filtration Rate 15.0 mL/min (>60) Glucose Level 132 MG/DL (74-106) H Calcium Level 8.8 MG/DL (8.5-10.1) Phosphorus Level 3.8 MG/DL (2.5-4.9) Magnesium Level 1.8 MG/DL (1.8-2.4) Microbiology Date/Time Source Procedure Growth Status 11/06/20 03:35 Urine,Clean Catch Urine Culture - Final NO GROWTH AFTER 48 HOURS Complete 11/06/20 02:40 Blood Blood Culture - Preliminary NO GROWTH AFTER 24 HOURS Resulted 11/06/20 02:35 Nasopharynx SARS-CoV-2 RdRp Gene Assay - Final Complete 11/06/20 02:25 Blood Blood Culture - Preliminary NO GROWTH AFTER 24 HOURS Resulted Objective HEAD AND NECK: Shows positive JVD. On Nasal cannula LUNGS: Coarse rhonchi. CARDIOVASCULAR: Shows regular S1 and S2 with no gallop. ABDOMEN: Soft. EXTREMITIES: 1+ pitting edema. John Nye MD Nov 08, 2020 15:33
[2020-11-08 16:00] VITALS: BP 130/68
[2020-11-08] MEDS ORDERED: Warfarin Sodium 2.5mg ORAL SCH (17:00)
[2020-11-08] MEDS ORDERED: Warfarin Sodium 5mg ORAL SCH (17:00)
[2020-11-08 20:00] VITALS: BP 150/75
[2020-11-09] VITALS: BP 131/57
[2020-11-09 04:00] VITALS: BP 137/65
[2020-11-09] MEDS: NovoLOG Insulin Flexpen SUBQ SCH ×4 (06:30→20:51)
[2020-11-09 06:54] LABS: BASOPHILS % (AUTO) 0.6 % (0.0-2.0); EOSINOPHILS % (AUTO) 3.7 % (0.0-3.0); HEMATOCRIT 28.1 % (37.0-47.0); HEMOGLOBIN 9.5 G/DL (12.0-16.0); LYMPHOCYTES % (AUTO) 18.5 % (20.0-45.0); MEAN CORPUSCULAR VOLUME 82 FL (80-99); MONOCYTES % (AUTO) 8.9 % (1.0-10.0); NEUTROPHILS % (AUTO) 68.3 % (45.0-75.0); PLATELET COUNT 207 K/UL (150-450); RED BLOOD COUNT 3.42 M/UL (4.20-5.40); RED CELL DISTRIBUTION WIDTH 13.5 % (11.6-14.8); WHITE BLOOD COUNT 12.4 K/UL (4.8-10.8)
[2020-11-09 06:59] LABS: INR 1.6 (0.9-1.1)
[2020-11-09 07:57] LABS: PHOSPHORUS 4.2 MG/DL (2.5-4.9)
[2020-11-09 08:00] VITALS: BP 152/78
[2020-11-09 08:14] LABS: CALCIUM 8.8 MG/DL (8.5-10.1); CREATININE 2.9 MG/DL (0.55-1.30); POTASSIUM 4.4 MMOL/L (3.5-5.1)
[2020-11-09] MEDS: Carvedilol 12.5mg tab ORAL SCH ×2 (08:31→20:34)
[2020-11-09] MEDS: sitaGLIPtin 25mg tab ORAL SCH (08:32)
[2020-11-09] MEDS: HydrALAZINE 50mg tab ORAL SCH ×2 (08:32→20:36)
[2020-11-09] MEDS: Aspirin EC 81mg tab ORAL SCH (08:32)
--- NOTE | 2020-11-09 08:41 | Nephrology Progress Note ---
Assessment/Plan Plan #GEORGE on CKDIII- due to CRS1 #Acute decompensated CHF #DM #HTN #COPD #Afib on coumadin #HLD - lasix 40mg IV x1 - hold losartan - maintain cabrera - renal US- reviewed - monitor K and mag closley - hold metformin - hold aldactone for now - januvia 25mg daily - continue amlodipine 10mg daily - continue coreg 12.5mg BID - continue lipitor 10 - monitor daily weights - avoid nephrotoxins Time spent 65min Subjective ROS Limited/Unobtainable: No Constitutional: Reports: weakness HEENT: Denies: no symptoms, eye pain, blurred vision, tearing, double vision, ear pain, ear discharge, nose pain, nose congestion, throat pain, throat swelling, mouth pain, mouth swelling, other Genitourinary: Denies: no symptoms, burning, discharge, frequency, flank pain, hematuria, incontinence, pain, urgency, other Neurologic/Psychiatric: Denies: no symptoms, anxiety, depressed, emotional problems, headache, numbness, paresthesia, pre-existing deficit, seizure, tingling, tremors, weakness, other Subjective Cr up 3.0-> 2.9 DC losartan UOP 750 yesterday renal US: 1. 2.77 x 2.75 x 1.98 cm anechoic cyst at the right kidney. 2. Mild echogenic bilateral renal cortex may be medical renal disease. No hydronephrosis. Objective Objective Last 24 Hour Vital Signs Date Time Temp Pulse Resp B/P (MAP) Pulse Ox O2 Delivery O2 Flow Rate FiO2 11/09/20 08:33 152/78 11/09/20 08:32 152/78 11/09/20 08:31 96 152/78 11/09/20 08:10 Room Air 11/09/20 04:00 97.5 86 18 137/65 (89) 97 11/09/20 04:00 Room Air 11/09/20 03:41 84 11/09/20 00:00 Room Air 11/09/20 00:00 79 11/09/20 00:00 97.2 84 18 131/57 (81) 95 11/08/20 21:58 150/75 11/08/20 21:58 83 150/75 11/08/20 20:00 Room Air 11/08/20 20:00 97.0 83 18 150/75 (100) 97 12/13/20 19:41 83 20 97 Nasal Cannula 2.0 28 11/08/20 19:41 97 Nasal Cannula 2.0 28 11/08/20 19:33 81 11/08/20 18:04 130/68 11/08/20 16:00 83 11/08/20 16:00 2.0 11/08/20 16:00 Nasal Cannula 2.0 11/08/20 16:00 97.2 86 18 130/68 (88) 97 11/08/20 12:00 97.8 88 20 147/66 (93) 95 11/08/20 12:00 2.0 11/08/20 12:00 Nasal Cannula 2.0 11/08/20 12:00 77 11/08/20 09:31 137/84 11/08/20 09:31 74 137/84 11/08/20 09:30 137/84 Intake and Output 11/08/20 11/09/20 19:00 07:00 Intake Total 720 ml 150 ml Output Total 420 ml 300 ml Balance 300 ml -150 ml Intake Oral 720 ml 150 ml Output Urine Total 420 ml 300 ml Laboratory Tests 11/09/20 03:08: White Blood Count 12.4H, Red Blood Count 3.42L, Hemoglobin 9.5L, Hematocrit 28.1L, Mean Corpuscular Volume 82, Mean Corpuscular Hemoglobin 27.8, Mean Corpuscular Hemoglobin Concent 33.8, Red Cell Distribution Width 13.5, Platelet Count 207, Mean Platelet Volume 12.0H, Neutrophils (%) (Auto) 68.3, Lymphocytes (%) (Auto) 18.5L, Monocytes (%) (Auto) 8.9, Eosinophils (%) (Auto) 3.7H, Basophils (%) (Auto) 0.6, Prothrombin Time 17.4H, Prothromb Time International Ratio 1.6H, Sodium Level 136, Potassium Level 4.4, Chloride Level 101, Carbon Dioxide Level 25, Anion Gap 11, Blood Urea Nitrogen 47H, Creatinine 2.9H, Estimat Glomerular Filtration Rate 15.6, Glucose Level 124H, Calcium Level 8.8, Phosphorus Level 4.2, Magnesium Level 2.0 Height (Feet): 5 Height (Inches): 8.00 Weight (Pounds): 165 PirouJudith cuello M.D. Nov 09, 2020 08:41
[2020-11-09 12:00] VITALS: BP 135/69
--- NOTE | 2020-11-09 12:38 | Cardiac Electrophysiology PN ---
Assessment/Plan Assessment/Plan 1. Exacerbation of congestive heart failure Echo showed EF 20% [place] more [place] [address]52. Got one dose of Lasix 40 iv today On Coreg 12.5 bid, Hydralazine 50 bid and Isordil 2. Acute IA with LBBB and EF 20 and troponin of 3.9. Down to 1.8 . No chest pain. Will need cardiac cath when renal failure stabilizes No CP or Aspirin, Coreg and Lipitor and Isordil 3. Paroxysmal atrial fibrillation. On Coumadin. INR is 1.8. 4. LBBB 5. COPD, on home oxygen. 6. Hypertension. 7. Diabetes. 8. Renal failure with Cr 2.6. Lasix DCed as Cr up to [address] Garland depending on her renal Fx DW RN and Dr Garland Subjective Subjective ECG showed LBBB. EF 20% Troponin 3.96 but no chest pain. Got Lasix again as gained 2 Lbs in 24 hours Objective Last 24 Hour Vital Signs Date Time Temp Pulse Resp B/P (MAP) Pulse Ox O2 Delivery O2 Flow Rate FiO2 11/09/20 08:33 152/78 11/09/20 08:32 152/78 11/09/20 08:31 96 152/78 11/09/20 08:10 Room Air 11/09/20 08:00 97 11/09/20 08:00 97.9 96 20 152/78 (102) 94 11/09/20 04:00 97.5 86 18 137/65 (89) 97 11/09/20 04:00 Room Air 11/09/20 03:41 84 11/09/20 00:00 Room Air 11/09/20 00:00 79 11/09/20 00:00 97.2 84 18 131/57 (81) 95 11/08/20 21:58 150/75 11/08/20 21:58 83 150/75 11/08/20 20:00 Room Air 11/08/20 20:00 97.0 83 18 150/75 (100) 97 11/08/20 19:41 83 20 97 Nasal Cannula 2.0 28 11/08/20 19:41 97 Nasal Cannula 2.0 28 11/08/20 19:33 81 11/08/20 18:04 130/68 11/08/20 16:00 83 12/13/20 16:00 2.0 11/08/20 16:00 Nasal Cannula 2.0 11/08/20 16:00 97.2 86 18 130/68 (88) 97 Intake and Output 11/08/20 11/09/20 19:00 07:00 Intake Total 720 ml 150 ml Output Total 420 ml 300 ml Balance 300 ml -150 ml Intake Oral 720 ml 150 ml Output Urine Total 420 ml 300 ml Laboratory Tests Test 11/09/20 03:08 White Blood Count 12.4 K/UL (4.8-10.8) H Red Blood Count 3.42 M/UL (4.20-5.40) L Hemoglobin 9.5 G/DL (12.0-16.0) L Hematocrit 28.1 % (37.0-47.0) L Mean Corpuscular Volume 82 FL (80-99) Mean Corpuscular Hemoglobin 27.8 PG (27.0-31.0) Mean Corpuscular Hemoglobin Concent 33.8 G/DL (32.0-36.0) Red Cell Distribution Width 13.5 % (11.6-14.8) Platelet Count 207 K/UL (150-450) Mean Platelet Volume 12.0 FL (6.5-10.1) H Neutrophils (%) (Auto) 68.3 % (45.0-75.0) Lymphocytes (%) (Auto) 18.5 % (20.0-45.0) L Monocytes (%) (Auto) 8.9 % (1.0-10.0) Eosinophils (%) (Auto) 3.7 % (0.0-3.0) H Basophils (%) (Auto) 0.6 % (0.0-2.0) Prothrombin Time 17.4 SEC (9.30-11.50) H Prothromb Time International Ratio 1.6 (0.9-1.1) H Sodium Level 136 MMOL/L (136-145) Potassium Level 4.4 MMOL/L (3.5-5.1) Chloride Level 101 MMOL/L (98-107) Carbon Dioxide Level 25 MMOL/L (21-32) Anion Gap 11 mmol/L (5-15) Blood Urea Nitrogen 47 mg/dL (7-18) H Creatinine 2.9 MG/DL (0.55-1.30) H Estimat Glomerular Filtration Rate 15.6 mL/min (>60) Glucose Level 124 MG/DL (74-106) H Calcium Level 8.8 MG/DL (8.5-10.1) Phosphorus Level 4.2 MG/DL (2.5-4.9) Magnesium Level 2.0 MG/DL (1.8-2.4) Objective HEAD AND NECK: Shows positive JVD. On Nasal cannula LUNGS: Coarse rhonchi. CARDIOVASCULAR: Shows regular S1 and S2 with no gallop. ABDOMEN: Soft. EXTREMITIES: 1+ pitting edema. John Nye MD Nov 09, 2020 12:38
--- NOTE | 2020-11-09 14:13 | Pulmonology Progress Note ---
Subjective ROS Limited/Unobtainable: No Interval Events: looks better Constitutional: Reports: no symptoms HEENT: Repors: no symptoms Respiratory: Reports: no symptoms Cardiovascular: Reports: no symptoms Gastrointestinal/Abdominal: Reports: no symptoms Genitourinary: Reports: no symptoms Allergies: Coded Allergies: No Known Allergies (Unverified , 05/01/13) Objective Last 24 Hour Vital Signs Date Time Temp Pulse Resp B/P (MAP) Pulse Ox O2 Delivery O2 Flow Rate FiO2 11/09/20 08:33 152/78 11/09/20 08:32 152/78 11/09/20 08:31 96 152/78 11/09/20 08:10 Room Air 11/09/20 08:00 97 11/09/20 08:00 97.9 96 20 152/78 (102) 94 11/09/20 04:00 97.5 86 18 137/65 (89) 97 11/09/20 04:00 Room Air 11/09/20 03:41 84 11/09/20 00:00 Room Air 11/09/20 00:00 79 11/09/20 00:00 97.2 84 18 131/57 (81) 95 11/08/20 21:58 150/75 11/08/20 21:58 83 150/75 11/08/20 20:00 Room Air 11/08/20 20:00 97.0 83 18 150/75 (100) 97 11/08/20 19:41 83 20 97 Nasal Cannula 2.0 28 11/08/20 19:41 97 Nasal Cannula 2.0 28 11/08/20 19:33 81 11/08/20 18:04 130/68 11/08/20 16:00 83 11/08/20 16:00 2.0 11/08/20 16:00 Nasal Cannula 2.0 11/08/20 16:00 97.2 86 18 130/68 (88) 97 Intake and Output 11/08/20 11/09/20 19:00 07:00 Intake Total 720 ml 150 ml Output Total 420 ml 300 ml Balance 300 ml -150 ml Intake Oral 720 ml 150 ml Output Urine Total 420 ml 300 ml Objective saturating well on RA; pt asleep General Appearance: no acute distress HEENT: normocephalic Respiratory: chest wall non-tender, decreased breath sounds Cardiovascular: normal peripheral pulses Abdomen: normal bowel sounds Laboratory Tests 11/09/20 03:08: White Blood Count 12.4H, Red Blood Count 3.42L, Hemoglobin 9.5L, Hematocrit 28.1L, Mean Corpuscular Volume 82, Mean Corpuscular Hemoglobin 27.8, Mean Corpuscular Hemoglobin Concent 33.8, Red Cell Distribution Width 13.5, Platelet Count 207, Mean Platelet Volume 12.0H, Neutrophils (%) (Auto) 68.3, Lymphocytes (%) (Auto) 18.5L, Monocytes (%) (Auto) 8.9, Eosinophils (%) (Auto) 3.7H, Basophils (%) (Auto) 0.6, Prothrombin Time 17.4H, Prothromb Time International Ratio 1.6H, Sodium Level 136, Potassium Level 4.4, Chloride Level 101, Carbon Dioxide Level 25, Anion Gap 11, Blood Urea Nitrogen 47H, Creatinine 2.9H, Estimat Glomerular Filtration Rate 15.6, Glucose Level 124H, Calcium Level 8.8, Phosphorus Level 4.2, Magnesium Level 2.0 Current Medications Medications (Trade) Dose Ordered Sig/Prateek Route PRN Reason Start Time Stop Time Status Last Admin Dose Admin Aspirin (Ecotrin) 81 mg DAILY ORAL 11/08/20 09:00 12/23/20 08:59 11/09/20 08:32 Atorvastatin Calcium (Lipitor) 10 mg BEDTIME ORAL 11/06/20 21:00 02/04/21 20:59 11/08/20 21:58 Carvedilol (Coreg) 12.5 mg EVERY 12 HOURS ORAL 11/06/20 21:00 12/06/20 20:59 11/09/20 08:31 Dextrose (Dextrose 50%) 25 ml Q30M PRN IV Hypoglycemia 11/06/20 18:15 02/04/21 18:14 Dextrose (Dextrose 50%) 50 ml Q30M PRN IV Hypoglycemia 11/06/20 18:15 02/04/21 18:14 Hydralazine HCl (Apresoline) 50 mg Q12HR ORAL 11/07/20 21:00 02/05/21 20:59 11/09/20 08:32 Insulin Aspart (NovoLOG) BEFORE MEALS AND HS SUBQ 11/06/20 21:00 02/04/21 20:59 11/09/20 11:27 Isosorbide Dinitrate (Isordil) 20 mg BID ORAL 11/07/20 18:00 12/07/20 17:59 11/09/20 08:33 Nitroglycerin (Ntg) 0.4 mg Q5M PRN SL Prn Chest Pain 11/06/20 02:45 12/06/20 02:44 11/06/20 02:44 Sitagliptin Phosphate (Januvia) 25 mg DAILY ORAL 11/07/20 09:00 12/07/20 08:59 11/09/20 08:32 Warfarin Sodium (Coumadin per pharmacy) 1 ea DAILY PRN MISC Per rx protocol 11/06/20 15:00 12/06/20 14:59 Warfarin Sodium (Coumadin) 10 mg ONCE ORAL 11/09/20 17:00 11/09/20 19:00 Assessment/Plan Assessment/Plan 1. Decompensated congestive heart failure. 2. Renal insufficiency. 3. Hypertension. 4. Diabetes mellitus. DISCUSSION: She is off BiPAP now. Saturating well on RA Seen by Cardiology and Nephrology. Diabetes monitoring. Renal function unchanged Will hold diuretics; lasix continued per renal dc Smith We will follow carefully. Discussed with son transferred to tele The care for this patient was discussed with my supervising physician Time spent for this case was approximately 31 minutes The patient was seen and examined at bedside and all new and available data was reviewed in the patients chart. I agree with the above findings, impression, and plan. (Patient was seen earlier today. Signature timestamp does not reflect patient encounter time) Sean Owen MD Nov 09, 2020 14:13 Víctor Espinosa MD Nov 09, 2020 16:47
[2020-11-09] MEDS ORDERED: Miralax 17gm pkt ORAL SCH (15:00)
[2020-11-09] MEDS ORDERED: Docusate 100mg cap ORAL PRN (15:00)
[2020-11-09 16:00] VITALS: BP 123/85
[2020-11-09] MEDS ORDERED: Warfarin Sodium 5mg ORAL SCH (17:00)
[2020-11-09 20:00] VITALS: BP 147/51
[2020-11-10] VITALS: BP 136/51
[2020-11-10 04:00] VITALS: BP 138/67
[2020-11-10 05:45] LABS: CALCIUM 8.7 MG/DL (8.5-10.1); CREATININE 2.8 MG/DL (0.55-1.30); PHOSPHORUS 3.9 MG/DL (2.5-4.9); POTASSIUM 4.6 MMOL/L (3.5-5.1)
[2020-11-10] MEDS: NovoLOG Insulin Flexpen SUBQ SCH ×2 (06:30→11:49)
[2020-11-10] MEDS: sitaGLIPtin 25mg tab ORAL SCH (08:13)
[2020-11-10] MEDS: Aspirin EC 81mg tab ORAL SCH (08:13)
[2020-11-10] MEDS: Carvedilol 12.5mg tab ORAL SCH (08:15)
[2020-11-10] MEDS: HydrALAZINE 50mg tab ORAL SCH (08:19)
--- NOTE | 2020-11-10 08:37 | Nephrology Progress Note ---
Assessment/Plan Plan #GEORGE on CKDIII- due to CRS1 #Acute decompensated CHF #DM #HTN #COPD #Afib on coumadin #HLD - lasix 40mg IV x1 - hold losartan - maintain cabrera - renal US- reviewed - monitor K and mag closley - hold metformin - hold aldactone for now - januvia 25mg daily - continue amlodipine 10mg daily - continue coreg 12.5mg BID - continue lipitor 10 - monitor daily weights - avoid nephrotoxins Time spent 65min Subjective ROS Limited/Unobtainable: No Constitutional: Reports: weakness Subjective Cr up 3.0-> 2.9 DC losartan UOP 750 yesterday renal US: 1. 2.77 x 2.75 x 1.98 cm anechoic cyst at the right kidney. 2. Mild echogenic bilateral renal cortex may be medical renal disease. No hydronephrosis. Objective Objective Last 24 Hour Vital Signs Date Time Temp Pulse Resp B/P (MAP) Pulse Ox O2 Delivery O2 Flow Rate FiO2 11/10/20 08:19 144/84 11/10/20 08:15 89 144/84 11/10/20 08:13 144/84 11/10/20 04:00 Room Air 11/10/20 04:00 80 11/10/20 04:00 97.7 87 18 138/67 (90) 96 11/10/20 00:03 Room Air 11/10/20 00:00 82 11/10/20 00:00 97.9 85 18 136/51 (79) 96 11/09/20 20:36 147/51 11/09/20 20:34 83 147/51 11/09/20 20:00 Room Air 11/09/20 20:00 74 11/09/20 20:00 97.3 83 18 147/51 (83) 99 11/09/20 18:56 98 Room Air 21 11/09/20 18:56 79 18 98 Room Air 21 11/09/20 17:06 123/85 11/09/20 16:00 96.3 75 20 123/85 (98) 100 11/09/20 16:00 78 11/09/20 16:00 Room Air 11/09/20 15:46 97.9 11/09/20 12:00 Room Air 11/09/20 12:00 97.9 85 20 135/69 (91) 98 11/09/20 12:00 77 Intake and Output 11/09/20 11/10/20 19:00 07:00 Intake Total 540 ml 520 ml Output Total 450 ml Balance 90 ml 520 ml Intake Oral 540 ml 520 ml Output Urine Total 450 ml # Voids 1 Laboratory Tests 11/10/20 02:42: Sodium Level 135L, Potassium Level 4.6, Chloride Level 102, Carbon Dioxide Level 24, Anion Gap 9, Blood Urea Nitrogen 44H, Creatinine 2.8H, Estimat Glomerular Filtration Rate 16.2, Glucose Level 100, Calcium Level 8.7, Phosphorus Level 3.9, Magnesium Level 1.9 Height (Feet): 5 Height (Inches): 8.00 Weight (Pounds): 165 Judith Garland M.D. Nov 10, 2020 08:37
[2020-11-10 08:47] VITALS: BP 144/87
[2020-11-10 10:08] LABS: INR 1.9 (0.9-1.1)
[2020-11-10] MEDS ORDERED: WARFARIN SODIUM5 MG ORAL (11:57)
[2020-11-10] MEDS ORDERED: LIPITOR10 MG ORAL (11:57)
[2020-11-10] MEDS ORDERED: ASPIRIN EC81 MG ORAL (11:57)
[2020-11-10] MEDS ORDERED: FAMOTIDINE20 MG ORAL (11:57)
[2020-11-10] MEDS ORDERED: COREG12.5 MG ORAL (11:57)
[2020-11-10] MEDS ORDERED: ISOSORBIDE DINI10 MG ORAL (11:57)
[2020-11-10] MEDS ORDERED: APRESOLINE50 MG ORAL (11:57)
[2020-11-10 12:00] VITALS: BP 139/94
--- NOTE | 2020-11-10 12:07 | Pulmonology Progress Note ---
Subjective ROS Limited/Unobtainable: No Interval Events: looks better Constitutional: Reports: no symptoms HEENT: Repors: no symptoms Respiratory: Reports: no symptoms Cardiovascular: Reports: no symptoms Gastrointestinal/Abdominal: Reports: no symptoms Genitourinary: Reports: no symptoms Allergies: Coded Allergies: No Known Allergies (Unverified , 05/01/13) Objective Last 24 Hour Vital Signs Date Time Temp Pulse Resp B/P (MAP) Pulse Ox O2 Delivery O2 Flow Rate FiO2 11/10/20 08:47 97.5 93 20 144/87 (106) 95 11/10/20 08:19 144/84 11/10/20 08:15 89 144/84 11/10/20 08:13 144/84 11/10/20 08:00 Room Air 11/10/20 07:56 84 11/10/20 04:00 Room Air 11/10/20 04:00 80 11/10/20 04:00 97.7 87 18 138/67 (90) 96 11/10/20 00:03 Room Air 11/10/20 00:00 82 11/10/20 00:00 97.9 85 18 136/51 (79) 96 11/09/20 20:36 147/51 11/09/20 20:34 83 147/51 11/09/20 20:00 Room Air 11/09/20 20:00 74 11/09/20 20:00 97.3 83 18 147/51 (83) 99 11/09/20 18:56 98 Room Air 21 11/09/20 18:56 79 18 98 Room Air 21 11/09/20 17:06 123/85 11/09/20 16:00 96.3 75 20 123/85 (98) 100 11/09/20 16:00 78 11/09/20 16:00 Room Air 11/09/20 15:46 97.9 Intake and Output 11/09/20 11/10/20 19:00 07:00 Intake Total 540 ml 520 ml Output Total 450 ml Balance 90 ml 520 ml Intake Oral 540 ml 520 ml Output Urine Total 450 ml # Voids 1 Objective saturating well on RA General Appearance: no acute distress HEENT: normocephalic Respiratory: chest wall non-tender, lungs clear Cardiovascular: normal peripheral pulses Abdomen: normal bowel sounds Laboratory Tests 11/10/20 02:42: Sodium Level 135L, Potassium Level 4.6, Chloride Level 102, Carbon Dioxide Level 24, Anion Gap 9, Blood Urea Nitrogen 44H, Creatinine 2.8H, Estimat Glomerular Filtration Rate 16.2, Glucose Level 100, Calcium Level 8.7, Phosphorus Level 3.9, Magnesium Level 1.9 11/10/20 08:50: Prothrombin Time 20.3H, Prothromb Time International Ratio 1.9H Current Medications Medications (Trade) Dose Ordered Sig/Prateek Route PRN Reason Start Time Stop Time Status Last Admin Dose Admin Acetaminophen (Tylenol) 650 mg Q6H PRN ORAL For Pain 11/09/20 15:00 12/09/20 14:59 11/09/20 15:16 Aspirin (Ecotrin) 81 mg DAILY ORAL 11/08/20 09:00 12/23/20 08:59 11/10/20 08:13 Atorvastatin Calcium (Lipitor) 10 mg BEDTIME ORAL 11/06/20 21:00 02/04/21 20:59 11/09/20 20:33 Carvedilol (Coreg) 12.5 mg EVERY 12 HOURS ORAL 11/06/20 21:00 12/06/20 20:59 11/10/20 08:15 Dextrose (Dextrose 50%) 25 ml Q30M PRN IV Hypoglycemia 11/06/20 18:15 02/04/21 18:14 Dextrose (Dextrose 50%) 50 ml Q30M PRN IV Hypoglycemia 11/06/20 18:15 02/04/21 18:14 Docusate Sodium (Colace) 100 mg BIDPRN PRN ORAL Constipation 11/09/20 15:00 12/09/20 14:59 Famotidine (Pepcid) 20 mg DAILY ORAL 11/09/20 15:00 02/07/21 14:59 11/10/20 08:13 Hydralazine HCl (Apresoline) 50 mg Q12HR ORAL 11/07/20 21:00 02/05/21 20:59 11/10/20 08:19 Insulin Aspart (NovoLOG) BEFORE MEALS AND HS SUBQ 11/06/20 21:00 02/04/21 20:59 11/10/20 11:49 Isosorbide Dinitrate (Isordil) 20 mg BID ORAL 11/07/20 18:00 12/07/20 17:59 11/10/20 08:13 Nitroglycerin (Ntg) 0.4 mg Q5M PRN SL Prn Chest Pain 11/06/20 02:45 12/06/20 02:44 11/06/20 02:44 Sitagliptin Phosphate (Januvia) 25 mg DAILY ORAL 11/07/20 09:00 12/07/20 08:59 11/10/20 08:13 Warfarin Sodium (Coumadin per pharmacy) 1 ea DAILY PRN MISC Per rx protocol 11/06/20 15:00 12/06/20 14:59 Warfarin Sodium (Coumadin) 7.5 mg COUMADIN ORAL 11/10/20 17:00 11/10/20 23:59 Assessment/Plan Assessment/Plan 1. Decompensated congestive heart failure. 2. Renal insufficiency. 3. Hypertension. 4. Diabetes mellitus. DISCUSSION: She is off BiPAP now. Saturating well on RA Seen by Cardiology and Nephrology. Diabetes monitoring. Renal function worse Will hold diuretics; lasix continued per renal dc Smith Discussed with son dc planning today The care for this patient was discussed with my supervising physician Time spent for this case was approximately 31 minutes Sean Herring Nov 10, 2020 12:07
[2020-11-10] MEDS ORDERED: NS 275ml ONE (14:44)
--- NOTE | 2020-11-10 16:01 | Discharge Summary ---
Discharge Summary Discharge Summary _ Date of admission: 11/06/2020 Date of discharge: 11/10/2020 Discharged by Víctor Dior Reason for hospitalization: A 80-year-old female with history of hypertension, CHF, status post cardiac pacemaker, Hyperlipidemia, CKD III, diabetes mellitus and COPD, presented with chief complaint of gradual onset shortness of breath. Patient reported she is oxygen dependent at home. She reported she has history of atrial fibrillation for which she takes Coumadin. Vital signs revealed tachycardia, tachypnea, hypertension. She was put on nasal cannula then switched to BiPAP with saturations above 98%. Consultants: Cardiology Dr. Nye Nephrology Dr. West Pulmonology Dr. Espinosa Significant finding: Laboratory data revealed leukocytosis, low hemoglobin and hematocrit, with stable platelet count. Chemistries showed low sodium, with elevated BUN and creatinine. Elevated glucose was noted. BNP 15,339, lipase 1458 Urinalysis showed 3+ protein, 1+ blood, 1+ leukocyte esterase, 24 RBC, 2030 WBC, with moderate number of urine bacteria. Troponin negative. Echocardiogram showed ejection fraction of 20 to 25%. Chest x-ray showed cardiomegaly with bilateral vascular congestion and pulmonary edema. Hospital course/treatment rendered A repeat echocardiogram was ordered to evaluate ejection fraction and wall mo tion abnormality for exacerbation of congestive heart failure. Echocardiogram showed ejection fraction of 20 to 25%. Lasix properly used according to her creatinine level. Her home medication Coumadin was continued. Metformin was held due to her kidney function. Home medications were resumed. Supplemental oxygen provided and titrated to keep pulse oximetry above 92%. Smith catheter was provided. Lipid-lowering agents provided Blood glucose lowering agents provided Antihypertensives provided GI prophylaxis provided Condition of patient on discharge Patient was clinically stable for discharge with stable vital signs, saturating well on room air. Smith catheter was discontinued before discharge Discharge instruction Patient was discharged home Patient was educated on self isolation. Follow-up with PCP within 1 week. Final diagnoses GEORGE on CKD stage III Acute decompensated CHF Diabetes mellitus Hypertension COPD I have been assigned to dictate discharge summary for this account. I was not involved in the patient's management Sean Herring Nov 10, 2020 16:01
[2020-11-10] MEDS ORDERED: Warfarin Sod 5 MG, Warfarin Sod 2.5 MG ORAL SCH ×2 (17:00)
--- NOTE | 2020-11-10 19:21 | Cardiac Electrophysiology PN ---
Assessment/Plan Assessment/Plan 1. Exacerbation of congestive heart failure Echo showed EF 20% and [place] more [place] [address]. Off Lasix due to ARF On Coreg 12.5 bid, Hydralazine 50 bid and Isordil 2. Acute CO with LBBB and EF 20 and troponin of 3.9. Down to 1.8 . No chest pain. Will need cardiac cath when renal failure stabilizes No CP or Aspirin, Coreg and Lipitor and Isordil 3. Paroxysmal atrial fibrillation. On Coumadin. INR is 1.8. 4. LBBB 5. COPD, on home oxygen. 6. Hypertension. 7. Diabetes. 8. Renal failure with Cr 2.6. Lasix DCed as Cr up to [address] Garland Subjective Subjective ECG showed LBBB. EF 20% Troponin 3.96 but no chest pain. Wants to go home Objective Last 24 Hour Vital Signs Date Time Temp Pulse Resp B/P (MAP) Pulse Ox O2 Delivery O2 Flow Rate FiO2 11/10/20 12:31 Room Air 11/10/20 12:00 97.3 78 21 139/94 (109) 100 11/10/20 11:35 74 11/10/20 08:47 97.5 93 20 144/87 (106) 95 11/10/20 08:19 144/84 11/10/20 08:15 89 144/84 11/10/20 08:13 144/84 11/10/20 08:00 Room Air 11/10/20 07:56 84 11/10/20 04:00 Room Air 11/10/20 04:00 80 11/10/20 04:00 97.7 87 18 138/67 (90) 96 11/10/20 00:03 Room Air 11/10/20 00:00 82 11/10/20 00:00 97.9 85 18 136/51 (79) 96 11/09/20 20:36 147/51 11/09/20 20:34 83 147/51 11/09/20 20:00 Room Air 11/09/20 20:00 74 11/09/20 20:00 97.3 83 18 147/51 (83) 99 Intake and Output 11/09/20 11/10/20 19:00 07:00 Intake Total 540 ml 520 ml Output Total 450 ml Balance 90 ml 520 ml Intake Oral 540 ml 520 ml Output Urine Total 450 ml # Voids 1 Laboratory Tests Test 11/10/20 02:42 11/10/20 08:50 Sodium Level 135 MMOL/L (136-145) L Potassium Level 4.6 MMOL/L (3.5-5.1) Chloride Level 102 MMOL/L (98-107) Carbon Dioxide Level 24 MMOL/L (21-32) Anion Gap 9 mmol/L (5-15) Blood Urea Nitrogen 44 mg/dL (7-18) H Creatinine 2.8 MG/DL (0.55-1.30) H Estimat Glomerular Filtration Rate 16.2 mL/min (>60) Glucose Level 100 MG/DL (74-106) Calcium Level 8.7 MG/DL (8.5-10.1) Phosphorus Level 3.9 MG/DL (2.5-4.9) Magnesium Level 1.9 MG/DL (1.8-2.4) Prothrombin Time 20.3 SEC (9.30-11.50) H Prothromb Time International Ratio 1.9 (0.9-1.1) H Objective HEAD AND NECK: Shows positive JVD. On Nasal cannula LUNGS: Coarse rhonchi. CARDIOVASCULAR: Shows regular S1 and S2 with no gallop. ABDOMEN: Soft. EXTREMITIES: 1+ pitting edema. John Nye MD Nov 10, 2020 19:21
== END 2020-11-10 14:45 | disposition home or self-care (01) | DRG 281 ==
LOC: EDBD 02:36 → EMR 02:40 → EDBEDREQ 03:22 → 2W 03:29 → EDBEDREQ 18:18 → 2W 22:09
PROC: 5A09357 Assistance with Respiratory Ventilation, Less than 24 Consecutive Hours, Continuous Positive Airway Pressure (ICD-10-PCS; principal; 2020-11-06)
DX: I13.0 Hypertensive heart and chronic kidney disease with heart failure and stage 1 through stage 4 chronic kidney disease, or unspecified chronic kidney disease (principal); I21.9 Acute myocardial infarction, unspecified; N17.9 Acute kidney failure, unspecified; E11.22 Type 2 diabetes mellitus with diabetic chronic kidney disease; N18.30 Chronic kidney disease, stage 3 unspecified; I50.9 Heart failure, unspecified; R06.03 Acute respiratory distress; Z79.01 Long term (current) use of anticoagulants; J44.9 Chronic obstructive pulmonary disease, unspecified; E78.5 Hyperlipidemia, unspecified; I44.7 Left bundle-branch block, unspecified; I48.0 Paroxysmal atrial fibrillation; Z95.0 Presence of cardiac pacemaker; Z79.84 Long term (current) use of oral hypoglycemic drugs
CPT/HCPCS: 36415; 71045; 76770; 80048; 80053; 80061; 81003; 82550; 82553; 82728; 82962; 83036; 83605; 83615; 83690; 83735; 83880; 84100; 84443; 84484; 85025; 85379; 85610; 85730; 86140; 87040; 87086; 93005; 93306; 94640; 96365; 96375; 99291; J1815; J7620; U0002

== ENCOUNTER 2020-11-17 20:33 | Inpatient (IN) | payer MEDICARE, MEDICAID ==
[~2020-11-17] VITALS: Ht 170.2 cm; Wt 81.6 kg
[2020-11-17 20:33] VITALS: BP 138/70
[~2020-11-17 20:33] MED LIST changes: +APRESOLINE50 MG ORAL; +ASPIRIN EC81 MG ORAL; +CARVEDILOL12.5 MG ORAL; +COREG12.5 MG ORAL; +FAMOTIDINE20 MG ORAL; +ISOSORBIDE DINI10 MG ORAL; +JANUVIA25 MG ORAL; +LIPITOR10 MG ORAL; +WARFARIN SODIUM5 MG ORAL
[2020-11-17 21:16] LABS: APPEARANCE,URINE SLIGHTLY CLOUDY; BILIRUBIN, URINE NEGATIVE (NEGATIVE); COLOR,URINE PALE YELLOW; GLUCOSE, URINE (UA) NEGATIVE (NEGATIVE); KETONES,URINE NEGATIVE (NEGATIVE); LEUKOCYTE ESTERASE ,URINE 2+ (NEGATIVE); NITRITE,URINE NEGATIVE (NEGATIVE); PH,URINE 7 (4.5-8.0); PROTEIN,URINE 1+ (NEGATIVE); UROBILINOGEN,URINE NORMAL MG/DL (0.0-1.0)
--- NOTE | 2020-11-17 21:17 | Emergency Room Report ---
History of Present Illness General Chief Complaint: Dyspnea/Respdistress Present Illness HPI 80-year-old female with a history of CHF and COPD on 2 L nasal cannula chronically at home here with 1 week of chest pain.. Patient says her symptoms have gradually worsened over the past several days. Patient has had a normal oxygen saturation on her normal 2 L nasal cannula. No chills, fevers, palpitations, back pain, abdominal pain, nausea, vomiting, diarrhea, dysuria. Says the chest pain feels like tightness, located in substernal region, does not otherwise radiate. 5 out of 10 in intensity right now. Allergies: Coded Allergies: No Known Allergies (Unverified , 05/01/13) COVID-19 Screening Contact w/high risk pt: No Experienced COVID-19 symptoms?: Yes COVID-19 Testing performed CRUSHER FEEDER: No Patient History Last Menstrual Period: n/a Nursing Documentation-H Hx Cardiac Problems: Yes Hx Hypertension: Yes Hx COPD: Yes Hx Diabetes: Yes Hx Cancer: No Hx Gastrointestinal Problems: No Hx Neurological Problems: No Review of Systems All Other Systems: negative except mentioned in HPI Physical Exam Vital Signs Date Time Temp Pulse Resp B/P (MAP) Pulse Ox O2 Delivery O2 Flow Rate FiO2 11/17/20 20:27 76 16 140/60 (86) 99 Nasal Cannula 2.0 Sp02 EP Interpretation: reviewed, normal General Appearance: no apparent distress, alert, non-toxic Head: normocephalic, atraumatic Eyes: bilateral eye normal inspection, bilateral eye PERRL ENT: hearing grossly normal, normal pharynx, no angioedema, normal voice Neck: full range of motion, supple/symm/no masses Respiratory: chest non-tender, lungs clear, normal breath sounds, speaking full sentences, other - On 2 L nasal cannula without any increased respiratory effort Cardiovascular #1: regular rate, rhythm, no edema Cardiovascular #2: 2+ carotid (R), 2+ carotid (L), 2+ radial (R), 2+ radial (L), 2+ dorsalis pedis (R), 2+ dorsalis pedis (L) Gastrointestinal: normal bowel sounds, non tender, soft, non-distended, no guarding, no rebound Rectal: deferred Genitourinary: normal inspection, no CVA tenderness Musculoskeletal: back normal, normal range of motion, gait/station normal, non- tender Neurologic: alert, motor strength/tone normal, oriented x3, sensory intact, responsive, speech normal Psychiatric: judgement/insight normal, memory normal, mood/affect normal, no suicidal/homicidal ideation Lymphatic: no adenopathy Medical Decision Making Diagnostic Impression: Primary Impression: UTI (urinary tract infection) Additional Impressions: CHF (congestive heart failure) Chest pain ER Course Laboratory Tests Test 11/17/20 21:00 11/17/20 21:40 White Blood Count 9.0 K/UL (4.8-10.8) Red Blood Count 3.58 M/UL (4.20-5.40) L Hemoglobin 10.1 G/DL (12.0-16.0) L Hematocrit 28.9 % (37.0-47.0) L Mean Corpuscular Volume 81 FL (80-99) Mean Corpuscular Hemoglobin 28.1 PG (27.0-31.0) Mean Corpuscular Hemoglobin Concent 34.9 G/DL (32.0-36.0) Red Cell Distribution Width 14.2 % (11.6-14.8) Platelet Count 230 K/UL (150-450) Mean Platelet Volume 11.3 FL (6.5-10.1) H Neutrophils (%) (Auto) 63.3 % (45.0-75.0) Lymphocytes (%) (Auto) 22.4 % (20.0-45.0) Monocytes (%) (Auto) 11.3 % (1.0-10.0) H Eosinophils (%) (Auto) 2.2 % (0.0-3.0) Basophils (%) (Auto) 0.9 % (0.0-2.0) Prothrombin Time 12.8 SEC (9.30-11.50) H Prothrombin Time INR 1.2 (0.9-1.1) H Activated Partial Thromboplast Time 30 SEC (23-33) D-Dimer 1.12 mg/L FEU (0.00-0.49) H Urine Color Pale yellow Urine Appearance Slightly cloudy Urine pH 7 (4.5-8.0) Urine Specific [place] 1.005 (1.005-1.035) Urine Protein 1+ (NEGATIVE) H Urine Glucose (UA) Negative (NEGATIVE) Urine Ketones Negative (NEGATIVE) Urine Blood Negative (NEGATIVE) Urine Nitrite Negative (NEGATIVE) Urine Bilirubin Negative (NEGATIVE) Urine Urobilinogen Normal MG/DL (0.0-1.0) Urine Leukocyte Esterase 2+ (NEGATIVE) H Urine RBC 0-2 /HPF (0 - 2) Urine WBC 15-20 /HPF (0 - 2) H Urine Squamous Epithelial Cells Moderate /LPF (NONE/OCC) H Urine Bacteria Moderate /HPF (NONE) H Sodium Level 131 MMOL/L (136-145) L Potassium Level 3.6 MMOL/L (3.5-5.1) Chloride Level 95 MMOL/L (98-107) L Carbon Dioxide Level 25 MMOL/L (21-32) Anion Gap 11 mmol/L (5-15) Blood Urea Nitrogen 59 mg/dL (7-18) H Creatinine 3.2 MG/DL (0.55-1.30) H Estimated Glomerular Filtration Rate 13.9 mL/min (>60) Glucose Level 174 MG/DL (74-106) H Lactic Acid Level 1.30 mmol/L (0.4-2.0) Calcium Level 9.1 MG/DL (8.5-10.1) Ferritin 77 NG/ML (8-388) Total Bilirubin 0.4 MG/DL (0.2-1.0) Aspartate Amino Transferase (AST) 19 U/L (15-37) Alanine Aminotransferase (ALT) 24 U/L (12-78) Alkaline Phosphatase 101 U/L (46-116) Lactate Dehydrogenase 225 U/L (81-234) Total Creatine Kinase 164 U/L (26-308) Creatine Kinase MB 1.0 NG/ML (0.0-3.6) Creatine Kinase MB Relative Index 0.6 Troponin I 0.050 ng/mL (0.000-0.056) C-Reactive Protein, Quantitative < 0.4 mg/dL (0.00-0.90) Pro-B-Type Natriuretic Peptide 9407 pg/mL (0-125) H Total Protein 7.7 G/DL (6.4-8.2) Albumin 3.5 G/DL (3.4-5.0) Globulin 4.2 g/dL Albumin/Globulin Ratio 0.8 (1.0-2.7) L Lipase > 2000 U/L (73-393) H Arterial Blood pH 7.588 (7.350-7.450) Arterial Blood Partial Pressure CO2 25.0 mmHg (35.0-45.0) L Arterial Blood Partial Pressure O2 114.3 mmHg (75.0-100.0) H Arterial Blood HCO3 23.3 mmol/L (22.0-26.0) Arterial Blood Oxygen Saturation 98.4 % (95-100) Arterial Blood Base Excess 2.4 (-2-2) H Darek Test Positive Microbiology Date/Time Source Procedure Growth Status 11/17/20 21:00 Nasal Nares - Final Complete 11/17/20 21:00 Nasal Nares - Final Complete 11/17/20 21:00 Nasopharynx SARS-CoV-2 RdRp Gene Assay - Final Complete EKG: NSR, no ischemia, left bundle branch block. QTc 551. no ectopy Rhythm strip: patient monitored for arrhythmias - no malignant dysrhythmias, runs of PVCs, nor pauses noted 80-year-old female with history of COPD and CHF here with chest pain. Patient was initially requiring 2 L nasal cannula however was satting well on room air here in the emergency department. Chest x-ray was clear. CBC, CMP, troponin all unremarkable. BNP was 9400, however review of patient's chart show that she normally has a BNP much higher than that. Also had a lipase of greater than 2000, however patient has had elevated lipases multiple times in the past. She did have evidence of urinary tract infection. Received ceftriaxone in the emergency department. Also noted to have a subtherapeutic INR of 1.2. She received aspirin and nitroglycerin in the emergency department and said that she felt improved. EKG did not show any acute ischemic changes. Patient to be admitted to telemetry under the care of Dr. Espinosa. Last Vital Signs Date Time Temp Pulse Resp B/P (MAP) Pulse Ox O2 Delivery O2 Flow Rate FiO2 11/17/20 20:27 76 16 140/60 (86) 99 Nasal Cannula 2.0 Galileo Ho M.D. Nov 17, 2020 21:17
[2020-11-17 21:19] LABS: BASOPHILS % (AUTO) 0.9 % (0.0-2.0); EOSINOPHILS % (AUTO) 2.2 % (0.0-3.0); HEMATOCRIT 28.9 % (37.0-47.0); HEMOGLOBIN 10.1 G/DL (12.0-16.0); LYMPHOCYTES % (AUTO) 22.4 % (20.0-45.0); MEAN CORPUSCULAR VOLUME 81 FL (80-99); MONOCYTES % (AUTO) 11.3 % (1.0-10.0); NEUTROPHILS % (AUTO) 63.3 % (45.0-75.0); PLATELET COUNT 230 K/UL (150-450); RED BLOOD COUNT 3.58 M/UL (4.20-5.40); RED CELL DISTRIBUTION WIDTH 14.2 % (11.6-14.8)
--- NOTE | 2020-11-17 21:21 | Diagnostic Imaging Report ---
EXAM: XR Chest, 1 View CLINICAL HISTORY: SOB TECHNIQUE: Frontal view of the chest. COMPARISON: 11/06/2020 FINDINGS: Lungs: Unremarkable. No consolidation. Pleural space: Unremarkable. No pneumothorax. Heart: Unremarkable. No cardiomegaly. Mediastinum: Unremarkable. Bones/joints: Unremarkable. Vasculature: Atherosclerotic vascular disease is demonstrated. IMPRESSION: No acute findings in the chest.
[2020-11-17 21:29] LABS: ANION GAP 11 mmol/L (5-15); BLOOD UREA NITROGEN 59 mg/dL (7-18); CALCIUM 9.1 MG/DL (8.5-10.1); CARBON DIOXIDE 25 MMOL/L (21-32); CHLORIDE 95 MMOL/L (98-107); CREATININE 3.2 MG/DL (0.55-1.30); POTASSIUM 3.6 MMOL/L (3.5-5.1); SODIUM 131 MMOL/L (136-145)
[2020-11-17 21:34] LABS: INR 1.2 (0.9-1.1)
[2020-11-17 21:43] LABS: ALANINE AMINOTRANSFERASE 24 U/L (12-78); ALBUMIN 3.5 G/DL (3.4-5.0); ALBUMIN/GLOBULIN RATIO 0.8 (1.0-2.7); ALKALINE PHOSPHATASE 101 U/L (46-116); ASPARTATE AMINO TRANSFERASE 19 U/L (15-37); BILIRUBIN,TOTAL 0.4 MG/DL (0.2-1.0); CREATINE KINASE 164 U/L (26-308); FERRITIN 77 NG/ML (8-388); LACTATE DEHYDROGENASE 225 U/L (81-234)
[2020-11-17] MEDS ORDERED: Aspirin Baby 81mg ORAL ONE (21:45)
[2020-11-17] MEDS ORDERED: Nitroglycerin Subl 0.4mg tab SL PRN (21:45)
[2020-11-17 22:00] VITALS: BP 144/75
[2020-11-17] MEDS ORDERED: cefTRIAXone 1 GM in NS 55 ML IVPB ONE (22:45)
[2020-11-18] VITALS: BP 124/78
[2020-11-18 02:10] VITALS: BP 131/75
[2020-11-18 05:48] VITALS: BP 121/84
[2020-11-18] MEDS ORDERED: FUROSEMIDE40 MG ORAL (08:09)
[2020-11-18] MEDS ORDERED: JANUVIA25 MG ORAL (08:09)
[2020-11-18 12:00] VITALS: BP 134/71
--- NOTE | 2020-11-18 13:24 | Cardiac Electrophysiology PN ---
Subjective Subjective [id number] Objective Last 24 Hour Vital Signs Date Time Temp Pulse Resp B/P (MAP) Pulse Ox O2 Delivery O2 Flow Rate FiO2 11/18/20 12:00 98.2 91 20 134/71 (92) 99 11/18/20 09:39 Room Air 11/18/20 08:14 98.5 81 19 132/86 99 Room Air 11/18/20 05:48 98.7 68 20 121/84 99 Room Air 11/18/20 02:10 98.7 76 20 131/75 99 Room Air 11/18/20 00:00 98.7 70 22 124/78 99 Room Air 11/17/20 22:00 98.8 72 24 144/75 97 Room Air 11/17/20 21:37 138/70 11/17/20 20:33 98.8 73 24 138/70 100 Nasal Cannula 3.0 11/17/20 20:33 73 24 Nasal Cannula 3.0 11/17/20 20:27 76 16 140/60 (86) 99 Nasal Cannula 2.0 Laboratory Tests Test 11/17/20 21:00 11/17/20 21:40 White Blood Count 9.0 K/UL (4.8-10.8) Red Blood Count 3.58 M/UL (4.20-5.40) L Hemoglobin 10.1 G/DL (12.0-16.0) L Hematocrit 28.9 % (37.0-47.0) L Mean Corpuscular Volume 81 FL (80-99) Mean Corpuscular Hemoglobin 28.1 PG (27.0-31.0) Mean Corpuscular Hemoglobin Concent 34.9 G/DL (32.0-36.0) Red Cell Distribution Width 14.2 % (11.6-14.8) Platelet Count 230 K/UL (150-450) Mean Platelet Volume 11.3 FL (6.5-10.1) H Neutrophils (%) (Auto) 63.3 % (45.0-75.0) Lymphocytes (%) (Auto) 22.4 % (20.0-45.0) Monocytes (%) (Auto) 11.3 % (1.0-10.0) H Eosinophils (%) (Auto) 2.2 % (0.0-3.0) Basophils (%) (Auto) 0.9 % (0.0-2.0) Prothrombin Time 12.8 SEC (9.30-11.50) H Prothromb Time International Ratio 1.2 (0.9-1.1) H Activated Partial Thromboplast Time 30 SEC (23-33) D-Dimer 1.12 mg/L FEU (0.00-0.49) H Urine Color Pale yellow Urine Appearance Slightly cloudy Urine pH 7 (4.5-8.0) Urine Specific [place] 1.005 (1.005-1.035) Urine Protein 1+ (NEGATIVE) H Urine Glucose (UA) Negative (NEGATIVE) Urine Ketones Negative (NEGATIVE) Urine Blood Negative (NEGATIVE) Urine Nitrite Negative (NEGATIVE) Urine Bilirubin Negative (NEGATIVE) Urine Urobilinogen Normal MG/DL (0.0-1.0) Urine Leukocyte Esterase 2+ (NEGATIVE) H Urine RBC 0-2 /HPF (0 - 2) Urine WBC 15-20 /HPF (0 - 2) H Urine Squamous Epithelial Cells Moderate /LPF (NONE/OCC) H Urine Bacteria Moderate /HPF (NONE) H Sodium Level 131 MMOL/L (136-145) L Potassium Level 3.6 MMOL/L (3.5-5.1) Chloride Level 95 MMOL/L (98-107) L Carbon Dioxide Level 25 MMOL/L (21-32) Anion Gap 11 mmol/L (5-15) Blood Urea Nitrogen 59 mg/dL (7-18) H Creatinine 3.2 MG/DL (0.55-1.30) H Estimat Glomerular Filtration Rate 13.9 mL/min (>60) Glucose Level 174 MG/DL (74-106) H Lactic Acid Level 1.30 mmol/L (0.4-2.0) Calcium Level 9.1 MG/DL (8.5-10.1) Ferritin 77 NG/ML (8-388) Total Bilirubin 0.4 MG/DL (0.2-1.0) Aspartate Amino Transf (AST/SGOT) 19 U/L (15-37) Alanine Aminotransferase (ALT/SGPT) 24 U/L (12-78) Alkaline Phosphatase 101 U/L (46-116) Lactate Dehydrogenase 225 U/L (81-234) Total Creatine Kinase 164 U/L (26-308) Creatine Kinase MB 1.0 NG/ML (0.0-3.6) Creatine Kinase MB Relative Index 0.6 Troponin I 0.050 ng/mL (0.000-0.056) C-Reactive Protein, Quantitative < 0.4 mg/dL (0.00-0.90) Pro-B-Type Natriuretic Peptide 9407 pg/mL (0-125) H Total Protein 7.7 G/DL (6.4-8.2) Albumin 3.5 G/DL (3.4-5.0) Globulin 4.2 g/dL Albumin/Globulin Ratio 0.8 (1.0-2.7) L Lipase > 2000 U/L (73-393) H Arterial Blood pH 7.588 (7.350-7.450) Arterial Blood Partial Pressure CO2 25.0 mmHg (35.0-45.0) L Arterial Blood Partial Pressure O2 114.3 mmHg (75.0-100.0) H Arterial Blood HCO3 23.3 mmol/L (22.0-26.0) Arterial Blood Oxygen Saturation 98.4 % (95-100) Arterial Blood Base Excess 2.4 (-2-2) H Darek Test Positive Microbiology Date/Time Source Procedure Growth Status 11/17/20 21:00 Nasal Nares - Final Complete 11/17/20 21:00 Nasal Nares - Final Complete 11/17/20 21:00 Nasopharynx SARS-CoV-2 RdRp Gene Assay - Final Complete John Nye MD Nov 18, 2020 13:24
--- NOTE | 2020-11-18 13:45 | History and Physical Report ---
DATE OF ADMISSION: 11/17/2020 HISTORY OF PRESENT ILLNESS: This is an 80-year-old female with history of CHF. She has a history of medical noncompliance. She was admitted to the hospital early October 2020. At that time, she was diuresed and she improved significantly. There is a notation that she is on oxygen at home, but, however this has been refuted. She is no longer on home oxygen. The patient has also been admitted to [facility] for similar problem in the past. She has also been on BiPAP. It was remarkable that previous admission the patient was discharged, however, left in a hurry with daughter and did not take any prescriptions, which was subsequently could not be reached to her as well. PAST MEDICAL HISTORY: Diabetes mellitus, hypertension, CHF, COPD. Not on home oxygen. MEDICATIONS: Her current list of medications include Coumadin, aspirin, Lasix, atenolol, Lipitor, amlodipine, losartan, metformin, Januvia, and Aldactone. REVIEW OF SYSTEMS: Denies any headaches, hematemesis, melena, or hematochezia. PHYSICAL EXAMINATION: GENERAL: Revealed an 80-year-old female. HEENT: Unremarkable. VITAL SIGNS: Show blood pressure of 130/80, heart rate 84, respirations 18. O2 saturation 99% on room air. LUNGS: Clear breath sounds bilaterally with crackles. HEART: Normal heart sounds. ABDOMEN: Soft. EXTREMITIES: There is 1+ edema. LABORATORY DATA: Lab testing shows hemoglobin 10.1, otherwise normal CBC and BMP. Creatinine today is 3.2. ABG - pH 7.58, pCO2 25, pO2 114. Coags are negative. Review of her previous creatinine, I note that the patient had a creatinine of 1.8 in August, however, since October has had a creatinine of 2.4. This is the highest now at 3.2. IMPRESSION: 1. Congestive heart failure. 2. Acute on chronic renal failure. 3. Medication nonadherence. 4. Diabetes mellitus. 5. Chronic obstructive pulmonary disease. DISCUSSION: Admit to the hospital. We will resume home medications. We will decrease diuretics. Consult Nephrology. Consult Cardiology. Follow serial laboratories. Discussed medication compliance with the patient. I suspect at times she has been excessive diuresed. We will follow carefully. Víctor Espinosa M.D. DR: FREDDIE JOB#: [id number] CC:
[2020-11-18 16:00] VITALS: BP 129/80
[2020-11-18] MEDS ORDERED: Warfarin Sodium 5mg ORAL ONE (17:00)
--- NOTE | 2020-11-18 18:04 | Consultation ---
DATE OF CONSULTATION: 11/18/2020 CARDIOLOGY CONSULTATION CONSULTING PHYSICIAN: John Nye M.D. REFERRING PHYSICIAN: Víctor Espinosa M.D. REASON FOR CONSULTATION: Management of congestive heart failure. HISTORY OF PRESENT ILLNESS: The patient is an 80-year-old lady whom I am quite familiar with from her recent admission to [facility]. The patient has a history of hypertension, congestive heart failure with ejection fraction of 30% as well as COPD, who was on 2 L nasal cannula at home, presented to the emergency room with 1 week of chest pain. This seems to have gotten worse in the last several days. The patient did not have any fever, chills, nausea, vomiting, or diaphoresis. The patient is also diabetic. In the ER, blood pressure was 140/60 with a pulse of 76, respirations 18. The patient also was found to have urinary tract infection. REVIEW OF SYSTEMS: Negative other than what was mentioned in history of present illness. PAST MEDICAL HISTORY: As mentioned above. FAMILY HISTORY: Noncontributory. SOCIAL HISTORY: Lives at home. Does not smoke or drink alcohol. PHYSICAL EXAMINATION: VITAL SIGNS: Blood pressure 134/71, pulse 91, respirations 18, temperature 98.2. HEAD AND NECK: No JVD. LUNGS: Coarse rhonchi. CARDIOVASCULAR: Regular S1 and S2 with no gallop or murmur. ABDOMEN: Soft. EXTREMITIES: No pitting edema. LABORATORY DATA: Labs showed white count of 9, hemoglobin 10.9, hematocrit 29, and platelet count 230. Sodium 131, potassium 3.3, BUN of 59, creatinine 3.2, and glucose of 174. First troponin is negative. Lipase is more than 2000 and proBNP is 9400. ASSESSMENT AND PLAN: 1. Congestive heart failure with ejection fraction of only 20% and BNP of more than 3000. Patient is currently euvolemic. Resume Coreg and hydralazine and Isordil. Hold off on diuretic as she is dehydrated acute renal failure. 2. History of acute DE with left bundle-branch block and EF of 20% with troponin of 0.9 on previous admission last week. She currently does not have any chest pain. Eventually, after stabilization, she would need cardiac catheterization. Continue aspirin, Coreg, Lipitor, and Isordil. 3. Paroxysmal atrial fibrillation, in sinus rhythm, on Coumadin. Check INR. 4. Left bundle-branch block. Later would need biventricular defibrillator in view of congestive heart failure and EF of 20%. 5. COPD, on home oxygen. 6. Acute renal failure. Creatinine was 2.6. It is higher now. Lasix was discontinued. Further follow up per . . 7. Diabetes. Thank you very much for allowing me to participate in the care of this patient. Please do not hesitate to contact me for any questions regarding my evaluation. John Nye M.D. DR: PREETI JOB#: [id number] CC:
[2020-11-18 20:00] VITALS: BP 134/66
[2020-11-18] MEDS: Docusate 100mg cap ORAL SCH (20:53)
[2020-11-18] MEDS: Carvedilol 12.5mg tab ORAL SCH (20:53)
[2020-11-18] MEDS: HydrALAZINE 50mg tab ORAL SCH (20:54)
--- NOTE | 2020-11-18 21:27 | Consultation ---
History of Present Illness General Chief Complaint: Dyspnea/Respdistress Reason for Consultation: George Present Illness HPI 80 year old f h/o CHF EF30%, CRS with baseline Cr close to 2.5, HTN presenting with chest pressure recently discharged at that time cr noted to be 2.6 no cough, fevers, chills Allergies: Coded Allergies: No Known Allergies (Unverified , 05/01/13) Medication History Scheduled Aspirin Ec* (Aspirin Ec*), 81 MG ORAL DAILY Atorvastatin Calcium* (Lipitor*), 10 MG ORAL BEDTIME Carvedilol (Coreg), 12.5 MG ORAL EVERY 12 HOURS Famotidine* (Pepcid 20mg tablet*), 20 MG ORAL DAILY Furosemide* (Lasix*), 40 MG ORAL DAILY, (Reported) Hydralazine HCl (Hydralazine HCl), 50 MG ORAL Q12HR Isosorbide Dinitrate* (Isordil*), 20 MG ORAL BID Sitagliptin* (Januvia*), 25 MG ORAL DAILY, (Reported) Warfarin Sod* (Warfarin Sod*), 5 MG ORAL DAILY Patient History Healthcare decision maker Resuscitation status Advanced Directive on File Review of Systems All Other Systems: negative except mentioned in HPI Physical Exam General Appearance: WD/WN, no apparent distress Lines, tubes and drains: peripheral HEENT: normocephalic, atraumatic Neck: non-tender, normal alignment, supple Respiratory/Chest: chest wall non-tender, lungs clear Cardiovascular/Chest: normal peripheral pulses, normal rate, regular rhythm Abdomen: normal bowel sounds, non tender, soft Extremities: trace edema Skin Exam: normal pigmentation, no diaphoresis Neurologic: alert, oriented x 3 Last 24 Hour Vital Signs Date Time Temp Pulse Resp B/P (MAP) Pulse Ox O2 Delivery O2 Flow Rate FiO2 11/18/20 20:54 133/66 11/18/20 20:53 61 135/66 11/18/20 17:19 129/80 11/18/20 16:00 72 11/18/20 16:00 96.8 89 20 129/80 (96) 100 11/18/20 12:00 98.2 91 20 134/71 (92) 99 11/18/20 12:00 85 11/18/20 09:39 Room Air 11/18/20 08:14 98.5 81 19 132/86 99 Room Air 11/18/20 05:48 98.7 68 20 121/84 99 Room Air 11/18/20 02:10 98.7 76 20 131/75 99 Room Air 11/18/20 00:00 98.7 70 22 124/78 99 Room Air 11/17/20 22:00 98.8 72 24 144/75 97 Room Air 11/17/20 21:37 138/70 Intake and Output 11/17/20 11/18/20 19:00 07:00 # Voids 1 Laboratory Tests Test 11/17/20 21:40 Arterial Blood pH 7.588 (7.350-7.450) Arterial Blood Partial Pressure CO2 25.0 mmHg (35.0-45.0) L Arterial Blood Partial Pressure O2 114.3 mmHg (75.0-100.0) H Arterial Blood HCO3 23.3 mmol/L (22.0-26.0) Arterial Blood Oxygen Saturation 98.4 % (95-100) Arterial Blood Base Excess 2.4 (-2-2) H Darek Test Positive Height (Feet): 5 Height (Inches): 7.00 Weight (Pounds): 180 Medications Current Medications Medications (Trade) Dose Ordered Sig/Prateek Route PRN Reason Start Time Stop Time Status Last Admin Dose Admin Acetaminophen (Tylenol) 650 mg Q4H PRN ORAL Mild Pain (Pain Scale 1-3) 11/18/20 11:45 12/18/20 11:44 Aspirin (Ecotrin) 81 mg DAILY ORAL 11/19/20 09:00 01/03/21 08:59 Atorvastatin Calcium (Lipitor) 10 mg BEDTIME ORAL 11/18/20 21:00 02/16/21 20:59 11/18/20 20:54 Carvedilol (Coreg) 12.5 mg EVERY 12 HOURS ORAL 11/18/20 21:00 12/18/20 20:59 11/18/20 20:53 Dextrose (Dextrose 50%) 25 ml Q30M PRN IV Hypoglycemia 11/18/20 11:45 02/16/21 11:44 Dextrose (Dextrose 50%) 50 ml Q30M PRN IV Hypoglycemia 11/18/20 11:45 02/16/21 11:44 Docusate Sodium (Colace) 100 mg EVERY 12 HOURS ORAL 11/18/20 21:00 12/18/20 20:59 11/18/20 20:53 Famotidine (Pepcid) 20 mg BID ORAL 11/18/20 18:00 02/16/21 17:59 11/18/20 17:18 Hydralazine HCl (Apresoline) 50 mg Q12HR ORAL 11/18/20 21:00 02/16/21 20:59 11/18/20 20:54 Isosorbide Dinitrate (Isordil) 20 mg Q12HR ORAL 11/18/20 18:00 12/18/20 17:59 11/18/20 17:19 Nitroglycerin (Ntg) 0.4 mg Q5M PRN SL Prn Chest Pain 11/17/20 21:45 12/17/20 21:44 11/17/20 21:37 Sitagliptin Phosphate (Januvia) 25 mg DAILY ORAL 11/19/20 09:00 12/19/20 08:59 Sodium Chloride 1,000 ml @ 50 mls/hr Q20H IVLG 11/18/20 12:45 12/18/20 12:44 11/18/20 13:54 Warfarin Sodium (Coumadin per pharmacy) 1 ea DAILY PRN MISC Per rx protocol 11/18/20 11:45 12/18/20 11:44 Assessment/Plan Diagnosis [place]: #GEORGE on CKD- h/o CRS1 now with volume depletion- will hold diuretics #Chest pain r/o ACS #CHF- EF 20% #AFIB #HTN - hold IVF - hold diuretics - imdur 20 BID - hydralazine 50 BID - statin - aspirin 81 - on warfarin - monitor renal function - avoid nephrotoxins - strict I&Os Time spent 65min Judith Garland M.D. Nov 18, 2020 21:19
[2020-11-19] VITALS: BP 121/58
[2020-11-19 04:00] VITALS: BP 127/60
[2020-11-19 07:14] LABS: INR 1.3 (0.9-1.1)
[2020-11-19 07:36] LABS: ANION GAP 8 mmol/L (5-15); BLOOD UREA NITROGEN 51 mg/dL (7-18); CALCIUM 8.4 MG/DL (8.5-10.1); CARBON DIOXIDE 27 MMOL/L (21-32); CHLORIDE 102 MMOL/L (98-107); CREATININE 2.8 MG/DL (0.55-1.30); POTASSIUM 3.8 MMOL/L (3.5-5.1); SODIUM 137 MMOL/L (136-145)
[2020-11-19 07:58] LABS: PHOSPHORUS 3.6 MG/DL (2.5-4.9)
[2020-11-19 08:00] VITALS: BP 142/66
--- NOTE | 2020-11-19 08:19 | Nephrology Progress Note ---
Assessment/Plan Plan #GEORGE on CKD- h/o CRS1 now with volume depletion- will hold diuretics #Chest pain r/o ACS #CHF- EF 20% #AFIB #HTN - hold IVF - hold diuretics - imdur 20 BID - hydralazine 50 BID - statin - aspirin 81 - on warfarin - monitor renal function - avoid nephrotoxins - strict I&Os Time spent 65min Subjective ROS Limited/Unobtainable: No Constitutional: Reports: weakness Objective Objective Last 24 Hour Vital Signs Date Time Temp Pulse Resp B/P (MAP) Pulse Ox O2 Delivery O2 Flow Rate FiO2 11/19/20 04:00 97.7 75 16 127/60 (82) 97 11/19/20 04:00 72 11/19/20 00:00 98.1 78 16 121/58 (79) 98 11/19/20 00:00 92 11/18/20 21:00 Room Air 11/18/20 20:54 133/66 11/18/20 20:53 61 135/66 11/18/20 20:00 97.7 78 17 134/66 (88) 98 11/18/20 20:00 74 11/18/20 17:19 129/80 11/18/20 16:00 72 11/18/20 16:00 96.8 89 20 129/80 (96) 100 11/18/20 12:00 98.2 91 20 134/71 (92) 99 11/18/20 12:00 85 11/18/20 09:39 Room Air Intake and Output 11/18/20 11/19/20 19:00 07:00 Intake Total 420 ml Output Total 1200 ml 200 ml Balance -780 ml -200 ml Intake Oral 120 ml IV Total 300 ml Output Urine Total 1200 ml 200 ml # Voids 3 1 Laboratory Tests 11/19/20 05:56: Prothrombin Time 14.3H, Prothromb Time International Ratio 1.3H, Sodium Level 137, Potassium Level 3.8, Chloride Level 102, Carbon Dioxide Level 27, Anion Gap 8, Blood Urea Nitrogen 51H, Creatinine 2.8H, Estimat Glomerular Filtration Rate 16.2, Glucose Level 122H, Calcium Level 8.4L, Phosphorus Level 3.6, Magnesium Level 2.3, Digoxin Level < 0.2L Height (Feet): 5 Height (Inches): 7.00 Weight (Pounds): 180 General Appearance: no apparent distress, alert EENT: PERRL/EOMI, normal ENT inspection Neck: non-tender, normal alignment Cardiovascular: normal peripheral pulses, normal rate, regular rhythm Respiratory/Chest: chest wall non-tender, lungs clear Abdomen: normal bowel sounds, non tender Extremities: normal range of motion, non-tender Neurologic: alert, oriented x 3 Judith Garland M.D. Nov 19, 2020 08:19
--- NOTE | 2020-11-19 09:21 | CDS Physician Query ---
Clarification is required for compliance, coding accuracy, and to reflect severity of illness for this patient Dear Dr. Víctor Espinosa Date: 11/19/2020 Manager Php/CDS Name: Lillian Arrieat Clinical Documentation states: HNP - This is an 80-year-old female with history of CHF. She has a history of medical noncompliance...Congestive Heart Failure Cardiology consult: Congestive heart failure with ejection fraction of only 20% and BNP of more than 3000. Patient is currently euvolemic. Resume Coreg and hydralazine and Isordil. Hold off on diuretic as she is dehydrated acute renal failure. Please Clarify: Acuity [] Acute [] Chronic [] Acute on Chronic Type [] Systolic [] Diastolic [] Systolic & Diastolic (Combined) [] Other: Present on Admission: [] Yes [] No [] Clinically Undetermined Physician signature Date Please also document in your Progress Notes and/or Discharge Summary and indicate if the condition was present on admission. MTDD
[2020-11-19] MEDS: Aspirin EC 81mg tab ORAL SCH (10:13)
[2020-11-19] MEDS: Carvedilol 12.5mg tab ORAL SCH (10:13)
[2020-11-19] MEDS: sitaGLIPtin 25mg tab ORAL SCH (10:13)
[2020-11-19] MEDS: HydrALAZINE 50mg tab ORAL SCH ×2 (10:13→21:42)
[2020-11-19] MEDS: Docusate 100mg cap ORAL SCH ×2 (10:14→21:42)
[2020-11-19 12:00] VITALS: BP 107/55
--- NOTE | 2020-11-19 12:14 | Pulmonology Progress Note ---
Subjective ROS Limited/Unobtainable: No Interval Events: none major reported per nursing Constitutional: Reports: no symptoms HEENT: Repors: no symptoms Respiratory: Reports: no symptoms Cardiovascular: Reports: no symptoms Gastrointestinal/Abdominal: Reports: no symptoms Allergies: Coded Allergies: No Known Allergies (Unverified , 05/01/13) Objective Last 24 Hour Vital Signs Date Time Temp Pulse Resp B/P (MAP) Pulse Ox O2 Delivery O2 Flow Rate FiO2 11/19/20 11:19 97.5 11/19/20 10:13 142/66 11/19/20 10:13 142/66 11/19/20 10:13 79 142/66 11/19/20 09:00 Room Air 11/19/20 08:00 83 11/19/20 08:00 97.5 79 18 142/66 (91) 96 11/19/20 04:00 97.7 75 16 127/60 (82) 97 11/19/20 04:00 72 11/19/20 00:00 98.1 78 16 121/58 (79) 98 11/19/20 00:00 92 11/18/20 21:00 Room Air 11/18/20 20:54 133/66 11/18/20 20:53 61 135/66 11/18/20 20:00 97.7 78 17 134/66 (88) 98 11/18/20 20:00 74 11/18/20 17:19 129/80 11/18/20 16:00 72 11/18/20 16:00 96.8 89 20 129/80 (96) 100 Intake and Output 11/18/20 11/19/20 19:00 07:00 Intake Total 420 ml Output Total 1200 ml 200 ml Balance -780 ml -200 ml Intake Oral 120 ml IV Total 300 ml Output Urine Total 1200 ml 200 ml # Voids 3 1 Objective 11/19 saturating well on RA; NAD General Appearance: WD/WN, no acute distress HEENT: atraumatic Respiratory: chest wall non-tender Cardiovascular: normal rate, regular rhythm Abdomen: soft, non tender Microbiology Date/Time Source Procedure Growth Status 11/17/20 21:00 Nasal Nares - Final Complete 11/17/20 21:00 Nasal Nares - Final Complete 11/17/20 21:00 Nasopharynx SARS-CoV-2 RdRp Gene Assay - Final Complete Laboratory Tests 11/19/20 05:56: Prothrombin Time 14.3H, Prothromb Time International Ratio 1.3H, Sodium Level 137, Potassium Level 3.8, Chloride Level 102, Carbon Dioxide Level 27, Anion Gap 8, Blood Urea Nitrogen 51H, Creatinine 2.8H, Estimat Glomerular Filtration Rate 16.2, Glucose Level 122H, Calcium Level 8.4L, Phosphorus Level 3.6, Magnesium Level 2.3, Digoxin Level < 0.2L Current Medications Medications (Trade) Dose Ordered Sig/Prateek Route PRN Reason Start Time Stop Time Status Last Admin Dose Admin Acetaminophen (Tylenol) 650 mg Q4H PRN ORAL Mild Pain (Pain Scale 1-3) 11/18/20 11:45 12/18/20 11:44 11/19/20 10:49 Aspirin (Ecotrin) 81 mg DAILY ORAL 11/19/20 09:00 01/03/21 08:59 11/19/20 10:13 Atorvastatin Calcium (Lipitor) 10 mg BEDTIME ORAL 11/18/20 21:00 02/16/21 20:59 11/18/20 20:54 Carvedilol (Coreg) 25 mg EVERY 12 HOURS ORAL 11/19/20 21:00 12/19/20 20:59 Dextrose (Dextrose 50%) 25 ml Q30M PRN IV Hypoglycemia 11/18/20 11:45 02/16/21 11:44 Dextrose (Dextrose 50%) 50 ml Q30M PRN IV Hypoglycemia 11/18/20 11:45 02/16/21 11:44 Docusate Sodium (Colace) 100 mg EVERY 12 HOURS ORAL 11/18/20 21:00 12/18/20 20:59 11/19/20 10:14 Famotidine (Pepcid) 20 mg BID ORAL 11/18/20 18:00 02/16/21 17:59 11/19/20 10:14 Hydralazine HCl (Apresoline) 50 mg Q12HR ORAL 11/18/20 21:00 02/16/21 20:59 11/19/20 10:13 Isosorbide Dinitrate (Isordil) 20 mg Q12HR ORAL 11/18/20 18:00 12/18/20 17:59 11/19/20 10:13 Nitroglycerin (Ntg) 0.4 mg Q5M PRN SL Prn Chest Pain 11/17/20 21:45 12/17/20 21:44 11/17/20 21:37 Sitagliptin Phosphate (Januvia) 25 mg DAILY ORAL 11/19/20 09:00 12/19/20 08:59 11/19/20 10:13 Warfarin Sodium (Coumadin per pharmacy) 1 ea DAILY PRN MISC Per rx protocol 11/18/20 11:45 12/18/20 11:44 Warfarin Sodium (Coumadin) 7.5 mg COUMADIN ORAL 11/19/20 17:00 11/19/20 23:59 Assessment/Plan Assessment/Plan 1. Congestive heart failure. - On Coreg and hydralazine and Isordil per cardio - EF 30% per cardio 2. Acute on chronic renal failure. - hold IVF - hold diuretics - monitor renal function - avoid nephrotoxins - strict I&Os - per nephro 3. Medication nonadherence. - pt counseled on medication compliance 4. Diabetes mellitus. - on Januvia 5. Chronic obstructive pulmonary disease. - currently saturating well on RA - monitor SaO2 We will follow carefully. Renal function better Will dc home in [place] The care for this patient was discussed with my supervising physician Time spent for this case was approximately 31 minutes The patient was seen and examined at bedside and all new and available data was reviewed in the patients chart. I agree with the above findings, impression, and plan. (Patient was seen earlier today. Signature timestamp does not reflect patient encounter time) Sean Owen MD Nov 19, 2020 12:14 Víctor Espinosa MD Nov 19, 2020 13:39
--- NOTE | 2020-11-19 12:25 | Cardiac Electrophysiology PN ---
Assessment/Plan Assessment/Plan 1. Congestive heart failure with ejection fraction of only 20% and BNP of more than 3000. Patient is currently euvolemic. On Coreg and hydralazine and Isordil. Hold off on diuretic in view of acute renal failure. 2. History of acute CO with left bundle-branch block and EF of 20% with troponin of 0.9 on previous admission last week. She currently does not have any chest pain. Eventually, after renal stabilization, she would need cardiac catheterization. Continue aspirin, Coreg, Lipitor, and Isordil. 3. SVT and Paroxysmal atrial fibrillation, in sinus rhythm, on Coumadin. May have tachy myopathy. 4. Left bundle-branch block. Later would need biventricular defibrillator in view of congestive heart failure and EF of 20%. 5. COPD, on home oxygen. 6. Acute renal failure. Creatinine was 3.2 now better to 2.8 7. Diabetes. Subjective Subjective Had 2 episodes of sustained SVT that self terminated Objective Last 24 Hour Vital Signs Date Time Temp Pulse Resp B/P (MAP) Pulse Ox O2 Delivery O2 Flow Rate FiO2 11/19/20 12:00 97.2 79 18 107/55 (72) 98 11/19/20 11:19 97.5 11/19/20 10:13 142/66 11/19/20 10:13 142/66 11/19/20 10:13 79 142/66 11/19/20 09:00 Room Air 11/19/20 08:00 83 11/19/20 08:00 97.5 79 18 142/66 (91) 96 11/19/20 04:00 97.7 75 16 127/60 (82) 97 11/19/20 04:00 72 11/19/20 00:00 98.1 78 16 121/58 (79) 98 11/19/20 00:00 92 11/18/20 21:00 Room Air 11/18/20 20:54 133/66 11/18/20 20:53 61 135/66 11/18/20 20:00 97.7 78 17 134/66 (88) 98 11/18/20 20:00 74 11/18/20 17:19 129/80 11/18/20 16:00 72 11/18/20 16:00 96.8 89 20 129/80 (96) 100 Intake and Output 11/18/20 11/19/20 19:00 07:00 Intake Total 420 ml Output Total 1200 ml 200 ml Balance -780 ml -200 ml Intake Oral 120 ml IV Total 300 ml Output Urine Total 1200 ml 200 ml # Voids 3 1 Laboratory Tests Test 11/19/20 05:56 Prothrombin Time 14.3 SEC (9.30-11.50) H Prothromb Time International Ratio 1.3 (0.9-1.1) H Sodium Level 137 MMOL/L (136-145) Potassium Level 3.8 MMOL/L (3.5-5.1) Chloride Level 102 MMOL/L (98-107) Carbon Dioxide Level 27 MMOL/L (21-32) Anion Gap 8 mmol/L (5-15) Blood Urea Nitrogen 51 mg/dL (7-18) H Creatinine 2.8 MG/DL (0.55-1.30) H Estimat Glomerular Filtration Rate 16.2 mL/min (>60) Glucose Level 122 MG/DL (74-106) H Calcium Level 8.4 MG/DL (8.5-10.1) L Phosphorus Level 3.6 MG/DL (2.5-4.9) Magnesium Level 2.3 MG/DL (1.8-2.4) Digoxin Level < 0.2 NG/ML (0.9-2.0) L Microbiology Date/Time Source Procedure Growth Status 11/17/20 21:00 Nasal Nares - Final Complete 11/17/20 21:00 Nasal Nares - Final Complete 11/17/20 21:00 Nasopharynx SARS-CoV-2 RdRp Gene Assay - Final Complete Objective HEAD AND NECK: No JVD. LUNGS: Coarse rhonchi. CARDIOVASCULAR: Regular S1 and S2 with no gallop or murmur. ABDOMEN: Soft. EXTREMITIES: No pitting edema. John Nye MD Nov 19, 2020 12:25
[2020-11-19 16:00] VITALS: BP 137/68
[2020-11-19] MEDS ORDERED: Warfarin Sod 5 MG, Warfarin Sod 2.5 MG ORAL SCH ×2 (17:00)
[2020-11-19 20:00] VITALS: BP 150/61
[2020-11-19] MEDS: Carvedilol 25mg Tab ORAL SCH (21:43)
[2020-11-20] VITALS: BP 132/48
[2020-11-20 04:00] VITALS: BP 136/53
[2020-11-20 06:48] LABS: INR 1.3 (0.9-1.1)
--- NOTE | 2020-11-20 06:49 | Cardiac Electrophysiology PN ---
Assessment/Plan Assessment/Plan 1. Congestive heart failure with ejection fraction of only 20% and BNP of more than 3000. Patient is currently euvolemic. On Coreg, hydralazine and Isordil. Hold off on diuretic in view of acute renal failure.n view of LBBB, benefits from BIV pacing 2. History of acute CT with left bundle-branch block and EF of 20% with troponin of 0.9 on previous admission last week. She currently does not have any chest pain. Eventually, after renal stabilization, she would need cardiac catheterization. Continue aspirin, Coreg, Lipitor, and Isordil. 3. SVT and Paroxysmal atrial fibrillation, in sinus rhythm, on Coumadin. May have tachy myopathy. May benefit from EP study 4. Left bundle-branch block. Later would need biventricular defibrillator in view of congestive heart failure and EF of 20%. 5. COPD, on home oxygen. 6. Acute renal failure. Creatinine was 3.2 now better to 2.8. Repeat labs pending 7. Diabetes. MACI RN Subjective Subjective Had 2 episodes of sustained SVT that self terminated yesterday but none overnight. Objective Last 24 Hour Vital Signs Date Time Temp Pulse Resp B/P (MAP) Pulse Ox O2 Delivery O2 Flow Rate FiO2 11/20/20 04:00 71 11/20/20 00:00 98.2 72 17 132/48 (76) 97 11/20/20 00:00 72 11/19/20 21:43 75 150/61 11/19/20 21:42 150/61 11/19/20 21:42 150/61 11/19/20 21:00 Room Air 11/19/20 20:00 98.4 75 16 150/61 (90) 97 11/19/20 20:00 68 11/19/20 16:00 96.6 90 18 137/68 (91) 100 11/19/20 16:00 72 11/19/20 12:00 97.2 79 18 107/55 (72) 98 11/19/20 12:00 70 11/19/20 11:19 97.5 11/19/20 10:13 142/66 11/19/20 10:13 142/66 11/19/20 10:13 79 142/66 11/19/20 09:00 Room Air 11/19/20 08:00 83 11/19/20 08:00 97.5 79 18 142/66 (91) 96 Intake and Output 11/19/20 11/20/20 19:00 07:00 Intake Total 730 ml 480 ml Output Total 700 ml 500 ml Balance 30 ml -20 ml Intake Oral 730 ml 480 ml Output Urine Total 700 ml 500 ml # Voids 1 Laboratory Tests Test 11/20/20 05:44 Prothrombin Time Pending Prothromb Time International Ratio Pending Sodium Level Pending Potassium Level Pending Chloride Level Pending Carbon Dioxide Level Pending Blood Urea Nitrogen Pending Creatinine Pending Estimat Glomerular Filtration Rate Pending Glucose Level Pending Calcium Level Pending Phosphorus Level Pending Magnesium Level Pending Microbiology Date/Time Source Procedure Growth Status 11/18/20 02:00 Rectum - Final NO CARBAPENEM-RESISTANT ENTEROBACTERI... Complete 11/18/20 02:00 Rectum VRE Culture - Final NO VANCOMYCIN RESISTANT ENTEROCOCCUS ... Complete 11/18/20 02:00 Nasal Nares MRSA Culture - Final NO METHICILLIN RESISTANT STAPH AUREUS... Complete 11/17/20 21:00 Urine,Clean Catch Urine Culture - Preliminary Mixed Urogenital Contaminants Resulted 11/17/20 21:00 Nasal Nares - Final Complete 11/17/20 21:00 Nasal Nares - Final Complete 11/17/20 21:00 Nasopharynx SARS-CoV-2 RdRp Gene Assay - Final Complete 11/17/20 21:00 Blood Blood Culture - Preliminary NO GROWTH AFTER 24 HOURS Resulted 11/17/20 20:45 Blood Blood Culture - Preliminary NO GROWTH AFTER 24 HOURS Resulted Objective HEAD AND NECK: No JVD. LUNGS: Coarse rhonchi. CARDIOVASCULAR: Regular S1 and S2 with no gallop or murmur. ABDOMEN: Soft. EXTREMITIES: No pitting edema. John Nye MD Nov 20, 2020 06:49
[2020-11-20 07:45] LABS: CALCIUM 8.6 MG/DL (8.5-10.1); CREATININE 2.6 MG/DL (0.55-1.30); PHOSPHORUS 3.8 MG/DL (2.5-4.9); POTASSIUM 4.2 MMOL/L (3.5-5.1)
[2020-11-20 08:07] VITALS: BP 150/67
[2020-11-20] MEDS: sitaGLIPtin 25mg tab ORAL SCH (08:10)
[2020-11-20] MEDS: HydrALAZINE 50mg tab ORAL SCH (08:10)
[2020-11-20] MEDS: Carvedilol 25mg Tab ORAL SCH (08:10)
[2020-11-20] MEDS: Docusate 100mg cap ORAL SCH (08:10)
[2020-11-20 08:11] VITALS: BP 150/67
[2020-11-20] MEDS: Aspirin EC 81mg tab ORAL SCH (08:11)
--- NOTE | 2020-11-20 09:43 | Pulmonology Progress Note ---
Subjective ROS Limited/Unobtainable: No Interval Events: none major reported per nursing Constitutional: Reports: no symptoms HEENT: Repors: no symptoms Respiratory: Reports: no symptoms Cardiovascular: Reports: no symptoms Gastrointestinal/Abdominal: Reports: no symptoms Allergies: Coded Allergies: No Known Allergies (Unverified , 05/01/13) Objective Last 24 Hour Vital Signs Date Time Temp Pulse Resp B/P (MAP) Pulse Ox O2 Delivery O2 Flow Rate FiO2 11/20/20 08:31 Room Air 11/20/20 08:11 150/67 11/20/20 08:10 82 150/67 11/20/20 08:10 150/67 11/20/20 08:07 97.0 82 18 150/67 (94) 99 11/20/20 04:00 71 11/20/20 04:00 98.4 70 16 136/53 (80) 97 11/20/20 00:00 98.2 72 17 132/48 (76) 97 11/20/20 00:00 72 11/19/20 21:43 75 150/61 11/19/20 21:42 150/61 11/19/20 21:42 150/61 11/19/20 21:00 Room Air 11/19/20 20:00 98.4 75 16 150/61 (90) 97 11/19/20 20:00 68 11/19/20 16:00 96.6 90 18 137/68 (91) 100 11/19/20 16:00 72 11/19/20 12:00 97.2 79 18 107/55 (72) 98 11/19/20 12:00 70 11/19/20 11:19 97.5 11/19/20 10:13 142/66 11/19/20 10:13 142/66 11/19/20 10:13 79 142/66 Intake and Output 11/19/20 11/20/20 19:00 07:00 Intake Total 730 ml 480 ml Output Total 700 ml 500 ml Balance 30 ml -20 ml Intake Oral 730 ml 480 ml Output Urine Total 700 ml 500 ml # Voids 1 Objective 11/20 remains on room air 11/19 saturating well on RA; NAD General Appearance: WD/WN, no acute distress HEENT: atraumatic, other - hard of hearing; uses hearing-aid Respiratory: chest wall non-tender Cardiovascular: normal rate, regular rhythm Abdomen: soft, non tender Microbiology Date/Time Source Procedure Growth Status 11/18/20 02:00 Rectum - Final NO CARBAPENEM-RESISTANT ENTEROBACTERI... Complete 11/18/20 02:00 Rectum VRE Culture - Final NO VANCOMYCIN RESISTANT ENTEROCOCCUS ... Complete 11/18/20 02:00 Nasal Nares MRSA Culture - Final NO METHICILLIN RESISTANT STAPH AUREUS... Complete 11/17/20 21:00 Urine,Clean Catch Urine Culture - Preliminary Mixed Urogenital Contaminants Resulted 11/17/20 21:00 Nasal Nares - Final Complete 11/17/20 21:00 Nasal Nares - Final Complete 11/17/20 21:00 Nasopharynx SARS-CoV-2 RdRp Gene Assay - Final Complete 11/17/20 21:00 Blood Blood Culture - Preliminary NO GROWTH AFTER 24 HOURS Resulted 11/17/20 20:45 Blood Blood Culture - Preliminary NO GROWTH AFTER 24 HOURS Resulted Laboratory Tests 11/20/20 05:44: Prothrombin Time 14.1H, Prothromb Time International Ratio 1.3H, Sodium Level 136, Potassium Level 4.2, Chloride Level 102, Carbon Dioxide Level 29, Anion Gap 5, Blood Urea Nitrogen 43H, Creatinine 2.6H, Estimat Glomerular Filtration Rate 17.7, Glucose Level 122H, Calcium Level 8.6, Phosphorus Level 3.8, Magnesium Level 2.5H Current Medications Medications (Trade) Dose Ordered Sig/Prateek Route PRN Reason Start Time Stop Time Status Last Admin Dose Admin Acetaminophen (Tylenol) 650 mg Q4H PRN ORAL Mild Pain (Pain Scale 1-3) 11/18/20 11:45 12/18/20 11:44 11/19/20 10:49 Aspirin (Ecotrin) 81 mg DAILY ORAL 11/19/20 09:00 01/03/21 08:59 11/20/20 08:11 Atorvastatin Calcium (Lipitor) 10 mg BEDTIME ORAL 11/18/20 21:00 02/16/21 20:59 11/19/20 21:43 Carvedilol (Coreg) 25 mg EVERY 12 HOURS ORAL 11/19/20 21:00 12/19/20 20:59 11/20/20 08:10 Dextrose (Dextrose 50%) 25 ml Q30M PRN IV Hypoglycemia 11/18/20 11:45 02/16/21 11:44 Dextrose (Dextrose 50%) 50 ml Q30M PRN IV Hypoglycemia 11/18/20 11:45 02/16/21 11:44 Docusate Sodium (Colace) 100 mg EVERY 12 HOURS ORAL 11/18/20 21:00 12/18/20 20:59 11/20/20 08:10 Famotidine (Pepcid) 20 mg BID ORAL 11/18/20 18:00 02/16/21 17:59 11/20/20 08:11 Hydralazine HCl (Apresoline) 50 mg Q12HR ORAL 11/18/20 21:00 02/16/21 20:59 11/20/20 08:10 Isosorbide Dinitrate (Isordil) 20 mg Q12HR ORAL 11/18/20 18:00 12/18/20 17:59 11/20/20 08:11 Nitroglycerin (Ntg) 0.4 mg Q5M PRN SL Prn Chest Pain 11/17/20 21:45 12/17/20 21:44 11/17/20 21:37 Sitagliptin Phosphate (Januvia) 25 mg DAILY ORAL 11/19/20 09:00 12/19/20 08:59 11/20/20 08:10 Warfarin Sodium (Coumadin per pharmacy) 1 ea DAILY PRN MISC Per rx protocol 11/18/20 11:45 12/18/20 11:44 Assessment/Plan Assessment/Plan 1. Congestive heart failure. - On Coreg and hydralazine and Isordil per cardio - EF 30% per cardio 2. Acute on chronic renal failure. - hold IVF - hold diuretics - monitor renal function - avoid nephrotoxins - strict I&Os - per nephro 3. Medication nonadherence. - pt counseled on medication compliance 4. Diabetes mellitus. - on Januvia 5. Chronic obstructive pulmonary disease. - currently saturating well on RA - monitor SaO2 6. Hx of acute NH and LBBB - consideration for biventricular defibrillator noted Renal function better Will dc home Resume low dose Lasix The care for this patient was discussed with my supervising physician Time spent for this case was approximately 31 minutes Sean Herring Nov 20, 2020 09:43 Víctor Espinosa MD Nov 20, 2020 11:41
[2020-11-20] MEDS ORDERED: FAMOTIDINE20 MG ORAL (10:14)
[2020-11-20] MEDS ORDERED: COREG25 MG ORAL (10:14)
[2020-11-20] MEDS ORDERED: Warfarin per pharmacy MISC (10:14)
[2020-11-20] MEDS ORDERED: NITRO0.4 SL (10:14)
[2020-11-20] MEDS ORDERED: COLACE100 MG ORAL (10:14)
[2020-11-20] MEDS ORDERED: ACETAMINOPHEN325 M1 ORAL (10:14)
--- NOTE | 2020-11-20 10:17 | Discharge Instructions ---
Discharge Instructions Discharge Instructions Follow up with: PCP Call MD/Return to Hospital if: symptoms worsen or fail to improve Activity: as tolerated For Congestive Heart Failure Reminder Report to your physician any weight gain of 5 pounds or more in one week. Sean Herring Nov 20, 2020 10:17
--- NOTE | 2020-11-20 10:21 | Nephrology Progress Note ---
Assessment/Plan Plan #GEORGE on CKD- h/o CRS1 now with volume depletion- will hold diuretics #Chest pain r/o ACS #CHF- EF 20% #AFIB #HTN - hold IVF - hold diuretics - imdur 20 BID - hydralazine 50 BID - statin - aspirin 81 - on warfarin - monitor renal function - avoid nephrotoxins - strict I&Os Time spent 65min Subjective ROS Limited/Unobtainable: No Constitutional: Reports: weakness HEENT: Denies: no symptoms, eye pain, blurred vision, tearing, double vision, ear pain, ear discharge, nose pain, nose congestion, throat pain, throat swelling, mouth pain, mouth swelling, other Genitourinary: Denies: no symptoms, burning, discharge, frequency, flank pain, hematuria, incontinence, pain, urgency, other Neurologic/Psychiatric: Denies: no symptoms, anxiety, depressed, emotional problems, headache, numbness, paresthesia, pre-existing deficit, seizure, tingling, tremors, weakness, other Subjective Cr stablized Objective Objective Last 24 Hour Vital Signs Date Time Temp Pulse Resp B/P (MAP) Pulse Ox O2 Delivery O2 Flow Rate FiO2 11/20/20 08:31 Room Air 11/20/20 08:11 150/67 11/20/20 08:10 82 150/67 11/20/20 08:10 150/67 11/20/20 08:07 97.0 82 18 150/67 (94) 99 11/20/20 04:00 71 11/20/20 04:00 98.4 70 16 136/53 (80) 97 11/20/20 00:00 98.2 72 17 132/48 (76) 97 11/20/20 00:00 72 11/19/20 21:43 75 150/61 11/19/20 21:42 150/61 11/19/20 21:42 150/61 11/19/20 21:00 Room Air 11/19/20 20:00 98.4 75 16 150/61 (90) 97 11/19/20 20:00 68 11/19/20 16:00 96.6 90 18 137/68 (91) 100 11/19/20 16:00 72 11/19/20 12:00 97.2 79 18 107/55 (72) 98 11/19/20 12:00 70 11/19/20 11:19 97.5 Intake and Output 11/19/20 11/20/20 19:00 07:00 Intake Total 730 ml 480 ml Output Total 700 ml 500 ml Balance 30 ml -20 ml Intake Oral 730 ml 480 ml Output Urine Total 700 ml 500 ml # Voids 1 Laboratory Tests 11/20/20 05:44: Prothrombin Time 14.1H, Prothromb Time International Ratio 1.3H, Sodium Level 136, Potassium Level 4.2, Chloride Level 102, Carbon Dioxide Level 29, Anion Gap 5, Blood Urea Nitrogen 43H, Creatinine 2.6H, Estimat Glomerular Filtration Rate 17.7, Glucose Level 122H, Calcium Level 8.6, Phosphorus Level 3.8, Magnesium Level 2.5H Height (Feet): 5 Height (Inches): 7.00 Weight (Pounds): 180 Judith Garland M.D. Nov 20, 2020 10:21
[2020-11-20] MEDS ORDERED: Warfarin Sod 5 MG, Warfarin Sod 2.5 MG ORAL SCH ×2 (17:00)
--- NOTE | 2020-11-23 09:33 | Discharge Summary ---
Discharge Summary Discharge Summary _ DATE OF ADMISSION: 11/17/2020 DATE OF DISCHARGE: 11/20/2020 DISCHARGED BY: Dr. Espinosa REASON FOR ADMISSION: 80 years old male female with past medical history of CHF and COPD, chronically on supplemental oxygen 2 L via nasal cannula at home, presented with complaints of chest pain for 1 week. Her symptoms gradually worsened over the past several days. Chest pain felt like tightness, located in substernal region, no radiation, with intensity 5 out of 10 on a scale 1-10 She denied fever and chills. She denied palpitations. No nausea ,vomiting , diarrhea or abdominal pain. She denied dysuria. Upon evaluation pulse oximetry was 99% on 2 L of oxygen via nasal cannula. Laboratory work-up revealed no leukocytosis, hemoglobin 10.1, hematocrit 30. Urinalysis revealed +1 protein , +2 leukocyte esterase , pyuria and moderate bacteria. Sodium 131, BUN 59, creatinine 3.2. Glucose 174. Lactic acid 1.3. Ferritin 77, CRP negative , LDH 225. D-dimer 1.1. Rapid COVID-19 was negative. Troponin 0.05, pro BNP 9407. EKG revealed sinus rhythm with left bundle branch block. In emergency department patient received empiric antibiotic for UTI along with aspirin and nitroglycerin and admitted to telemetry floor for further management. CONSULTANTS: team assembler Dr. Garcia HOSPITAL COURSE: Patient admitted to telemetry floor. Rn Clinical Documentation Specialist consulted. Home medication resumed. Echocardiogram , done on the recent admission earlier in October, demonstrated global left ventricular hypokinesis with left ventricular ejection fraction estimated to be 20 to 25%. Moderate to severe aortic regurgitation. Left ventricular dysfunction. Guideline directed medical therapy for congestive heart failure provided with beta-joya, hydralazine and Isordil. Diuretics were on hold in view of acute renal failure . Rn Clinical Documentation Specialist recommended to consider biventricular pacer. Patient had a prior history of acute IL on recent admission . Rn Clinical Documentation Specialist recommended renal stabilization and then consider cardiac catheterization. Aspirin , Coreg , statin and Isordil continued. Patient had prior episodes of paroxysmal atrial fibrillation and SVT , and was continued on Coumadin She remained in sinus rhythm. Per team assembler patient may have tachy-myopathy and may benefit from EP studies. Supplemental oxygen provided and titrated to keep pulse oximetry above 92%. No evidence of respiratory distress. Renal parameters and electrolytes were closely monitored. Strict intake and output maintained. Electrolytes corrected as needed. Creatinine from 3.2 down to 2.6. Blood sugar was managed with Januvia. Influenza screen test was negative. Urine culture revealed mixed urogenital contaminants. Blood culture were negative. Patient counseled on medication compliance as outpatient. Patient clinically stabilized and was ready for discharge . FINAL DIAGNOSES: Congestive heart failure with ejection fraction 20% Acute on chronic renal failure Medication nonadherence Diabetes mellitus COPD History of acute IL and LBBB SVT and paroxysmal atrial fibrillation DISCHARGE MEDICATIONS: See Medication Reconciliation list. DISCHARGE INSTRUCTIONS: Was discharged home. Follow-up with a primary care provider in 1 week. Patient was advised on consideration for biventricular pacemaker along with a cardiac catheterization. Patient was counseled on medication compliance. I have been assigned to dictate discharge summary for this account. I was not involved in the patient's management. Kayla Estrada NP Nov 23, 2020 09:33
== END 2020-11-20 11:20 | disposition home or self-care (01) | DRG 291 ==
LOC: EDBD 20:33 → EMR 20:50 → 2E 22:31 → EDBEDREQ 11-18 05:59
DX: I13.0 Hypertensive heart and chronic kidney disease with heart failure and stage 1 through stage 4 chronic kidney disease, or unspecified chronic kidney disease (principal); I50.23 Acute on chronic systolic (congestive) heart failure; N17.9 Acute kidney failure, unspecified; N39.0 Urinary tract infection, site not specified; I47.1 Supraventricular tachycardia; J44.9 Chronic obstructive pulmonary disease, unspecified; N18.9 Chronic kidney disease, unspecified; Z91.14 Patient's other noncompliance with medication regimen; I25.2 Old myocardial infarction; E11.22 Type 2 diabetes mellitus with diabetic chronic kidney disease; Z79.01 Long term (current) use of anticoagulants; Z79.84 Long term (current) use of oral hypoglycemic drugs; Z79.82 Long term (current) use of aspirin; I44.7 Left bundle-branch block, unspecified; I48.0 Paroxysmal atrial fibrillation
CPT/HCPCS: 36415; 71045; 80048; 80053; 80162; 81003; 82550; 82553; 82728; 82803; 83605; 83615; 83690; 83735; 83880; 84100; 84484; 85025; 85379; 85610; 85730; 86140; 86710; 87040; 87081; 87086; 93005; 96365; 99285; J7030; U0002

== ENCOUNTER 2020-12-27 19:51 | Inpatient (IN) | payer MEDICARE, MEDICAID ==
[~2020-12-27] VITALS: Ht 165.1 cm; Wt 61.2 kg
[~2020-12-27 19:51] MED LIST changes: +ACETAMINOPHEN325 M1 ORAL; +COLACE100 MG ORAL; +COREG25 MG ORAL; +NITRO0.4 SL; +Warfarin per pharmacy MISC
[2020-12-27] MEDS ORDERED: dexAMETHasone 10mg/ml Inj IV ONE (20:00)
[2020-12-27] MEDS ORDERED: Nitroglycerin 50mg/250ml btl 250 ML IV SCH (20:00)
--- NOTE | 2020-12-27 20:00 | NUR ---
ED Nurse Note: patient came in via EMS from home hx of RESPIRATORY FAILURE, CHF, KIDNEY FAILURE, DIABETES TYPE 2, and COPD. PATIENT HAD COMPLAINTS OF CHEST PAIN, AND SHORTNESS OF BREATH, TESTED POSITIVE FOR COVID EARLY NOVEMBER.
--- NOTE | 2020-12-27 20:05 | Emergency Room Report ---
History of Present Illness General Chief Complaint: Dyspnea/Respdistress Source: Medical Record, EMS Present Illness HPI Disclaimer: Please note that this report is being documented using [employer] technology. This can lead to erroneous entry secondary to incorrect interpretation by the dictating instrument. HPI: 80-year-old female history of COPD, CHF, atrial fibrillation on Coumadin presents for evaluation of shortness of breath. EMS states she is having progressive shortness of breath over the past few days with intermittent chest p ain. Reportedly had COVID-19 early November and has recovered. Patient was desaturating on their arrival and placed on 15 L nonrebreather. States she just saturated to 75% on route despite facemask oxygen. Cannot obtain any other information from patient at this time. 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 EOMI. bilateral jugular venous distention Cardiovascular: Tachycardic Resp: 15 L nonrebreather. 90%. Tachypneic with increased work of breathing. Coarse crackles bilaterally. Abdomen: Abdomen is soft, nondistended. Nontender Skin: Intact. No abrasions, laceration or rash over the exposed skin MSK: Normal tone and bulk. Moving all extremities. No obvious deformity. No significant lower extremity edema Neuro: Awake and alert. Mentating appropriately. Procedures Critical Care Time Critical Care Time Total critical care time: Approximately 45 minutes Due to a high probability of clinically significant, life threatening deterioration, the patient required the highest level of preparedness to intervene emergently and I personally spent this critical care time directly and personally managing the patient. This critical care time included obtaining a history, examining the patient, pulse oximetry, ordering and reviewing studies, ordering treatments, evaluating response to treatment and updating management plan as needed, frequent reassessment and discussion with other providers as well as arranging for ultimate disposition. This critical to care time was performed to assess and manage the high probability of life-threatening deterioration that could result in multiorgan failure. This critical care time is separate from the separately billable procedures and treating other patients. Medical Decision Making Diagnostic Impression: Primary Impression: CHF (congestive heart failure) Additional Impressions: Renal dysfunction Lactic acidosis Hyperglycemia ER Course 80-year-old female history of COPD, atrial fibrillation, CHF presenting for evaluation of shortness of breath. Concern for CHF exacerbation, COPD exacerbation, pneumonia, bronchitis, pneumothorax, rapid atrial fibrillation, ACS, sepsis among others. Patient placed on monitor and transition to BiPAP. Concern for CHF exacerbation she was empirically given Lasix and started on nitroglycerin drip. EKG shows left bundle branch block pattern tachycardiac. Chest x-ray does not show an obvious consolidation but does show bilateral vascular congestion. Covid swab sent. Lactic acid elevated. Evidence of renal dysfunction. Lipase elevated. BN peptide significantly elevated consistent with CHF exacerbation. Patient started on maintenance fluids but will hold off on sepsis level fluids at this time given the severity of her CHF exacerbation and fluid overload status. She is maintaining saturations on BiPAP and bicarb drip. Blood pressure improved. Admit to stepdown unit under Dr. Espinosa who is the assigned hospitalist per her health plan. Laboratory Tests Test 12/27/20 20:05 White Blood Count 14.4 K/UL (4.8-10.8) H Red Blood Count 3.15 M/UL (4.20-5.40) L Hemoglobin 9.1 G/DL (12.0-16.0) L Hematocrit 29.2 % (37.0-47.0) L Mean Corpuscular Volume 93 FL (80-99) Mean Corpuscular Hemoglobin 29.0 PG (27.0-31.0) Mean Corpuscular Hemoglobin Concent 31.3 G/DL (32.0-36.0) L Red Cell Distribution Width 16.7 % (11.6-14.8) H Platelet Count 380 K/UL (150-450) Mean Platelet Volume 7.4 FL (6.5-10.1) Neutrophils (%) (Auto) 41.9 % (45.0-75.0) L Lymphocytes (%) (Auto) 46.9 % (20.0-45.0) H Monocytes (%) (Auto) 7.0 % (1.0-10.0) Eosinophils (%) (Auto) 2.9 % (0.0-3.0) Basophils (%) (Auto) 1.2 % (0.0-2.0) Prothrombin Time Pending Prothrombin Time INR Pending Activated Partial Thromboplast Time Pending D-Dimer Pending Sodium Level 134 MMOL/L (136-145) L Potassium Level 3.9 MMOL/L (3.5-5.1) Chloride Level 99 MMOL/L (98-107) Carbon Dioxide Level 22 MMOL/L (21-32) Anion Gap 14 mmol/L (5-15) Blood Urea Nitrogen 33 mg/dL (7-18) H Creatinine 2.6 MG/DL (0.55-1.30) H Estimated Glomerular Filtration Rate 17.7 mL/min (>60) Glucose Level 333 MG/DL (74-106) H Lactic Acid Level 6.70 mmol/L (0.4-2.0) H Calcium Level 8.4 MG/DL (8.5-10.1) L Phosphorus Level 5.1 MG/DL (2.5-4.9) H Magnesium Level 2.1 MG/DL (1.8-2.4) Ferritin 196 NG/ML (8-388) Total Bilirubin 0.4 MG/DL (0.2-1.0) Aspartate Amino Transferase (AST) 23 U/L (15-37) Alanine Aminotransferase (ALT) 24 U/L (12-78) Alkaline Phosphatase 131 U/L (46-116) H Lactate Dehydrogenase 305 U/L (81-234) H Total Creatine Kinase 63 U/L (26-308) Creatine Kinase MB 0.7 NG/ML (0.0-3.6) Creatine Kinase MB Relative Index 1.1 Troponin I 0.044 ng/mL (0.000-0.056) C-Reactive Protein, Quantitative 1.1 mg/dL (0.00-0.90) H Pro-B-Type Natriuretic Peptide 95328 pg/mL (0-125) H Total Protein 7.8 G/DL (6.4-8.2) Albumin 2.8 G/DL (3.4-5.0) L Globulin 5.0 g/dL Albumin/Globulin Ratio 0.6 (1.0-2.7) L Lipase 846 U/L (73-393) H EKG Diagnostic Results Troponin ordered: Yes When was troponin ordered?: Dec 27, 2020 EKG Time: 19:58 Rate: tachycardiac Other Impression Wide-complex tachycardia consistent with left bundle branch block pattern Rhythm Strip Diag. Results Rhythm Strip Time: 19:56 EP Interpretation: yes Rate: 150s Rhythm: no ectopy Chest X-Ray Diagnostic Results Chest X-Ray Diagnostic Results : Chest X-Ray Ordered: Yes # of Views/Limited/Complete: 1 View Indication: Shortness of Breath EP Interpretation: Yes Interpretation: no consolidation, no effusion, no pneumothorax, other - Bilateral vascular congestion Impression: Other - Bilateral vascular congestion Electronically Signed by: Electronically signed by Dr. Preet Toledo MD Last Vital Signs Date Time Temp Pulse Resp B/P (MAP) Pulse Ox O2 Delivery O2 Flow Rate FiO2 12/27/20 19:52 99.0 165 31 182/110 (134) 92 Non-Rebreather 15.0 Disposition: ADMITTED INPATIENT Condition: Serious Preet Toledo MD Dec 27, 2020 20:05
--- NOTE | 2020-12-27 20:10 | NUR ---
BLOOD CULTURES, AND BLOOD SENT TO LAB
[2020-12-27 20:20] LABS: BASOPHILS % (AUTO) 1.2 % (0.0-2.0); EOSINOPHILS % (AUTO) 2.9 % (0.0-3.0); HEMATOCRIT 29.2 % (37.0-47.0); HEMOGLOBIN 9.1 G/DL (12.0-16.0); LYMPHOCYTES % (AUTO) 46.9 % (20.0-45.0); MEAN CORPUSCULAR VOLUME 93 FL (80-99); NEUTROPHILS % (AUTO) 41.9 % (45.0-75.0); PLATELET COUNT 380 K/UL (150-450); RED BLOOD COUNT 3.15 M/UL (4.20-5.40); RED CELL DISTRIBUTION WIDTH 16.7 % (11.6-14.8); WHITE BLOOD COUNT 14.4 K/UL (4.8-10.8)
--- NOTE | 2020-12-27 20:21 | NUR ---
ED Nurse Note: per Dr. garcia, start nitro at 150mcg/min. keep SBP above 100. titrate as far as she tolerates per MD. relayed to primary nurse as such.
--- NOTE | 2020-12-27 20:30 | NUR ---
2nd IV to the right AC 20g, dressing transperant, dry, flushes well
--- NOTE | 2020-12-27 20:30 | NUR ---
ED Nurse Note: INFORMED LACTIC ACID IS 6.7 WILL REPEAT IN 2 HOURS
--- NOTE | 2020-12-27 20:30 | NUR ---
ED Nurse Note: LAURO ROBERTSON SENT TO LAB
--- NOTE | 2020-12-27 20:30 | NUR ---
Rayna watts in [facility] - 12/27/20 at 2132 by ALINA J
--- NOTE | 2020-12-27 20:30 | NUR ---
ED Nurse Note: NITRO STARTED AT 5MCG/MIN, BP 125/65 (76), HR 122
--- NOTE | 2020-12-27 20:35 | Diagnostic Imaging Report ---
EXAM: XR Chest, 1 View CLINICAL HISTORY: SOB TECHNIQUE: Frontal view of the chest. COMPARISON: Chest x-ray dated 11/17/2020 FINDINGS: Lungs: Diffuse airspace opacities which may be infectious versus pulmonary edema. Pleural space: Unremarkable. Heart: Unremarkable. Mediastinum: Unremarkable. Bones/joints: Unremarkable. IMPRESSION: Diffuse airspace opacities which may be infectious versus pulmonary edema.
[2020-12-27 20:37] LABS: CALCIUM 8.4 MG/DL (8.5-10.1); CREATININE 2.6 MG/DL (0.55-1.30); POTASSIUM 3.9 MMOL/L (3.5-5.1)
[2020-12-27 20:51] LABS: ALBUMIN 2.8 G/DL (3.4-5.0); ALBUMIN/GLOBULIN RATIO 0.6 (1.0-2.7); BILIRUBIN,TOTAL 0.4 MG/DL (0.2-1.0); CKMB 0.7 NG/ML (0.0-3.6); PHOSPHORUS 5.1 MG/DL (2.5-4.9)
[2020-12-27 20:52] VITALS: BP 114/65
[2020-12-27] MEDS ORDERED: Insulin Human Regular 100units/ml 3ml IV ONE (21:00)
[2020-12-27 21:20] VITALS: BP 111/60
[2020-12-27 21:22] LABS: INR 1.2 (0.9-1.1)
[2020-12-27] MEDS ORDERED: Enoxaparin 60mg Inj SUBQ ONE (21:30)
[2020-12-27 21:35] VITALS: BP 117/74
[2020-12-27] MEDS ORDERED: cefTRIAXone 1 GM in NS 55 ML IVPB ONE (21:45)
[2020-12-27] MEDS ORDERED: Azithromycin 500 MG in NS 275 ML IV ONE (21:45)
--- NOTE | 2020-12-27 21:45 | NUR ---
Patients son Nikko called, son informed that patient will be admitted to [facility] [place].
[2020-12-27 21:50] VITALS: BP 127/98
[2020-12-27] MEDS: HydrALAZINE 10mg Tab ORAL SCH (22:00)
--- NOTE | 2020-12-27 22:00 | NUR ---
ED Nurse Note: RT collected ABG
--- NOTE | 2020-12-27 22:20 | NUR ---
ED Nurse Note: Repeat Lactic, UA, sent to lab, cabrera catheter palced
[2020-12-27 22:39] LABS: APPEARANCE,URINE CLEAR; BILIRUBIN, URINE NEGATIVE (NEGATIVE); COLOR,URINE PALE YELLOW; GLUCOSE, URINE (UA) NEGATIVE (NEGATIVE); KETONES,URINE NEGATIVE (NEGATIVE); LEUKOCYTE ESTERASE ,URINE NEGATIVE (NEGATIVE); NITRITE,URINE NEGATIVE (NEGATIVE); PH,URINE 6 (4.5-8.0); PROTEIN,URINE 2+ (NEGATIVE); UROBILINOGEN,URINE NORMAL MG/DL (0.0-1.0)
[2020-12-27 22:43] VITALS: BP 117/78
[2020-12-27] MEDS ORDERED: Nitroglycerin 2% oint pkt TOPIC ONE (23:00)
--- NOTE | 2020-12-27 23:00 | NUR ---
ED Nurse Note: PER ER MD HOLDEN Driver
--- NOTE | 2020-12-27 23:15 | NUR ---
NURSE NOTES: Received report from ROSY Brunner from ED. waiting for patient to arrive in unit
--- NOTE | 2020-12-27 23:15 | NUR ---
HAND-OFF: Report given to MARIAM. DISCUSSED CURRENT ORDERS, MEDICATION, CARE PLANS, AND MEDICAL HISTORY PATIENT WILL GO TO ROOM 245 WHEN BED IS CLEAN AND READY
[2020-12-27 23:20] VITALS: BP 129/57
[2020-12-28] VITALS (7 sets, daily range): BP systolic 122–137; BP diastolic 41–65
--- NOTE | 2020-12-28 01:00 | NUR ---
NURSE NOTES: patient arrived to unit accompanied by 2 RNs. patient is on NC 4L, saturation 100%. vital signs BP 126/61, HR 83, O2 saturation 100%, Temperature 98.1. cab[address] in [address] and draining well to gravity. will continue plan of care.
--- NOTE | 2020-12-28 01:46 | NUR ---
NURSE NOTES: spoke to Dr. Espinosa regarding admission orders for patient. No DVT prophylaxis, Bipap PRN 15/4 at 40% FiO2. medium sliding scale. regular diet. will carry out orders.
--- NOTE | 2020-12-28 02:29 | Consultation ---
DATE OF CONSULTATION: 12/27/2020 CARDIOLOGY CONSULTATION CONSULTING PHYSICIAN: Everett Iqbal M.D. REQUESTING PHYSICIAN: Víctor Espinosa M.D. REASON FOR CONSULTATION: Congestive heart failure exacerbation and malignant hypertension. HISTORY OF PRESENT ILLNESS: This is an 80-year-old female, who has a known history of ischemic and hypertensive heart disease with chronic systolic congestive heart failure as well as a history of chronic left bundle-branch block and paroxysmal atrial fibrillation. She has been on cardioembolic prophylaxis with warfarin however she has a history of medication noncompliance. The patient has had several days of progressive shortness of breath, intermittent chest pain, and reportedly suffered from COVID-19 earlier this month and recovered. She was hypoxic on arrival to the emergency room requiring a non-rebreather mask. The patient was hospitalized here twice in October of 2020 with heart failure exacerbation. She had an echocardiogram performed during those hospital stays confirming an ejection fraction of 20%. She has a chronic left bundle-branch block. There is a history of acute myocardial infarction in the past. She does have a history of paroxysmal atrial fibrillation and as noted above has been on warfarin. She does have a left bundle-branch block conduction pattern and may be considered for defibrillator in the future however her poor performance status has been an issue. PAST MEDICAL HISTORY: 1. Type 2 diabetes mellitus. 2. Chronic kidney disease. 3. Hypertension with hypertensive heart disease. 4. COPD. 5. History of apical thrombus. MEDICATIONS: Prescribed medications reviewed and reconciled. ALLERGIES: None known. SOCIAL HISTORY: Denies smoking, alcohol, or substance abuse. 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 REVIEW OF SYSTEMS: No fevers or chills. Recent COVID-19 infection with recovery. No seizures or known stroke. No current cough or sputum production. No change in bowel habits including melena, bright red blood per rectum, vomiting, or diarrhea. She does have a history of chronic kidney disease stage 3 to 4. She does have a creatinine range of 1.8 to 3.2 from hospital records at [facility]. PHYSICAL EXAMINATION: VITAL SIGNS: Blood pressure 182/110 with a heart rate of 165 and respiratory rate of 31 on arrival to the emergency room. Subsequent vitals blood pressure 117/78, heart rate 100, respirations 18, afebrile, and oxygen saturation on BiPAP is 100%. NECK: Revealed elevated jugular venous pressure. LUNGS: Accessory muscle use. Bilateral rhonchi and rales. CARDIAC: Regular rhythm. Rapid rate. Normal S1 and paradoxically split S2. A 1/6 systolic apical murmur. ABDOMEN: Soft. No bruits. EXTREMITIES: With 1+ edema. LABORATORY DATA: White count 14.4 and hemoglobin 9.1. ABG, pH 7.54, pCO2 30, and pO2 100. Urinalysis no active sediment. INR 1.2. Lactic acid 6.7. BUN 33 and creatinine 2.6. Sodium 134, potassium 3.9, and bicarb 22. Natriuretic peptide is 13,000. Albumin 2.8. Lipase 846. Troponin 0.044. IMPRESSION: 1. Probable community-acquired pneumonia, may be recovering COVID-19 infection. 2. Hypoxia. 3. Acute respiratory insufficiency. 4. Acute myocardial ischemia. 5. Acute on chronic systolic congestive heart failure. 6. Paroxysmal atrial fibrillation. 7. Hypertensive urgency. 8. Possible pancreatitis. 9. Moderate protein-calorie malnutrition. 10. Lactic acidosis. 11. History of apical thrombus. 12. Ischemic cardiomyopathy. PLAN: 1. Monitor in the step-down unit. 2. Cautious diurese. 3. Maximize anti-failure therapy. 4. Close monitoring of renal parameters. 5. Multidrug anti-failure regimen is initiated. 6. Full anticoagulation is in place. 7. Follow up laboratory studies are ordered. 8. Condition is critical and prognosis is guarded. Everett Iqbal M.D. DR: KVNG JOB#: [id number] CC:
[2020-12-28] MEDS: HydrALAZINE 10mg Tab ORAL SCH ×3 (05:51→22:00)
[2020-12-28 07:08] LABS: ALANINE AMINOTRANSFERASE 20 U/L (12-78); ALBUMIN 2.7 G/DL (3.4-5.0); ALBUMIN/GLOBULIN RATIO 0.6 (1.0-2.7); ALKALINE PHOSPHATASE 123 U/L (46-116); ANION GAP 10 mmol/L (5-15); ASPARTATE AMINO TRANSFERASE 20 U/L (15-37); BASOPHILS % (AUTO) 0.1 % (0.0-2.0); BILIRUBIN,TOTAL 0.3 MG/DL (0.2-1.0); BLOOD UREA NITROGEN 34 mg/dL (7-18); CALCIUM 8.4 MG/DL (8.5-10.1); CARBON DIOXIDE 25 MMOL/L (21-32); CHLORIDE 102 MMOL/L (98-107); CHOLESTEROL 169 MG/DL (< 200); CREATININE 2.2 MG/DL (0.55-1.30); GAMMA GLUTAMYL TRANSPEPTIDASE 94 U/L (5-85); HDL CHOLESTEROL 55 MG/DL (40-60); HEMATOCRIT 26.5 % (37.0-47.0); HEMOGLOBIN 8.2 G/DL (12.0-16.0); LYMPHOCYTES % (AUTO) 17.5 % (20.0-45.0); MEAN CORPUSCULAR VOLUME 90 FL (80-99); MONOCYTES % (AUTO) 1.6 % (1.0-10.0); NEUTROPHILS % (AUTO) 80.7 % (45.0-75.0); PHOSPHORUS 3.3 MG/DL (2.5-4.9); PLATELET COUNT 262 K/UL (150-450); POTASSIUM 4.2 MMOL/L (3.5-5.1); RED BLOOD COUNT 2.94 M/UL (4.20-5.40); SODIUM 137 MMOL/L (136-145); TRIGLYCERIDES 62 MG/DL (30-150); WHITE BLOOD COUNT 5.5 K/UL (4.8-10.8)
--- NOTE | 2020-12-28 07:20 | NUR ---
NURSE HAND-OFF REPORT: Important Events on Shift: patient remains stable Patient Status: full code Diet: CCHO medium Pending Orders: [] Pending Results/Labs:[] Pending MD notification:[] Latest Vital Signs: Temperature 97.9 , Pulse 82 , B/P 137 /65 , Respiratory Rate 18 , O2 SAT 100 , Bi-pap, O2 Flow Rate 2.0 . Vital Sign Comment: stable EKG Rhythm: NSR with PVCs Rhythm change?: N MD Notified?: Hussain Espinosa MD Response: Latest Vaca Fall Score: 30 Fall Risk: Medium Risk Safety Measures: Call light Within Reach, Bed Alarm Zone 1, Side Rails Side Rails x2, Bed position Low and Locked. Fall Precautions: Yellow Socks Yellow Gown Door Sign Patient Fall Education Report given to ROSY Arellano.
[2020-12-28] MEDS: NovoLOG Insulin Flexpen SUBQ SCH ×4 (07:46→21:00)
[2020-12-28 08:08] LABS: % IRON SATURATION 15 % (15-50); IRON 38 ug/dL (50-175); TOTAL IRON BINDING CAPACITY 255 ug/dL (250-450)
--- NOTE | 2020-12-28 08:46 | NUR ---
CASE MANAGEMENT:REVIEW 80 YR OLD FEMALE BIBA FROM HOME CC; SOB PMH: COVID POSITIVE 1 MONTH AGO SI: RESPIRATORY FAILURE. CHF. 98.9 165 31 182/110 92% ON 15L/ NRB WBC+14.4 H/H-9.1/29.2 BUN+33 CR+2.6 BNP+35020 IS: PLACED ON BIPAP IV DECADRON IV LASIX 1L NS BOLUS IV INSULIN : TO STEP DOWN UNIT DCP: FROM HOME
[2020-12-28] MEDS: Spironolactone 25mg tab ORAL SCH (09:00)
[2020-12-28] MEDS: Aspirin EC 81mg tab ORAL SCH (09:00)
[2020-12-28] MEDS: Carvedilol 12.5mg tab ORAL SCH ×2 (09:00→20:51)
[2020-12-28] MEDS: Docusate 100mg cap ORAL SCH ×3 (09:00→17:07)
--- NOTE | 2020-12-28 11:16 | NUR ---
RD ASSESSMENT & RECOMMENDATIONS SEE CARE ACTIVITY FOR COMPLETE ASSESSMENT DAILY ESTIMATED NEEDS: Needs based on Pulmonary 62.5kg abw 25-30 kcals/kg 7500-0193 total kcals 1-1.5 g protein/kg 63-94 g total protein Fluid per MD, on lasix NUTRITION DIAGNOSIS: Altered nutrition related lab values r/t clinical status as evidenced by elevated BG(192 333), elevated BNP(68197). CURRENT DIET: Now CCHO MED / ms ground PO DIET RECOMMENDATIONS--->>> CCHO MED/ texture as tolerated ADDITIONAL RECOMMENDATIONS: 1) Obtain a calibrated bed scale wt 2) rec bedside BG checks 3) Monitor po intake, need for snacks/ supplements Rec INTELLIGENCE OPERATIONS eval, upgrade diet texture as able 4) Off bipap, monitor resp status
--- NOTE | 2020-12-28 11:58 | Consultation ---
History of Present Illness General Chief Complaint: Dyspnea/Respdistress Present Illness HPI This is an 80-year-old female with history of CHF. She has a history of medical noncompliance. She was admitted to the hospital last night for evaluation of shortness of breath over few days with intermittent chest pain. She was hypoxic on arrival and was placed on nonrebreather and then BiPAP. Now she is back to low flow oxygen via nasal cannula. She reportedly had COVID-19 in early November and has recovered. Of note, she was hospitalized here in early October 2020 for UTI and CHF. At that time, she was diuresed and she improved significantly. There is a notation that she is on oxygen at home, but, however this has been refuted. She is no longer on home oxygen. The patient has also been admitted to [facility] for similar problem in the past. She has also been on BiPAP. It was remarkable that previous admission the patient was discharged, however, left in a hurry with daughter and did not take any prescriptions, which was subsequently could not be reached to her as well. PAST MEDICAL HISTORY: Diabetes mellitus, hypertension, CHF, COPD. Not on home oxygen. Allergies: Coded Allergies: No Known Allergies (Unverified , 05/01/13) Medication History Scheduled Aspirin Ec* (Aspirin Ec*), 81 MG ORAL DAILY Atorvastatin Calcium* (Lipitor*), 10 MG ORAL BEDTIME Carvedilol (Coreg), 25 MG ORAL EVERY 12 HOURS Docusate Sodium* (Colace*), 100 MG ORAL EVERY 12 HOURS Famotidine* (Pepcid 20mg tablet*), 20 MG ORAL DAILY Famotidine* (Pepcid 20mg tablet*), 20 MG ORAL BID Furosemide* (Lasix*), 40 MG ORAL DAILY, (Reported) Hydralazine HCl (Hydralazine HCl), 50 MG ORAL Q12HR Isosorbide Dinitrate* (Isordil*), 20 MG ORAL BID Sitagliptin* (Januvia*), 25 MG ORAL DAILY, (Reported) Warfarin Sod* (Warfarin Sod*), 5 MG ORAL DAILY Scheduled PRN Acetaminophen* (Acetaminophen 325MG Tablet*), 650 MG ORAL Q4H PRN Nitroglycerin 0.4MG table* (Nitroglycerin*), 0.4 MG SL Q5M PRN [Warfarin per pharmacy], 1 EA MISC DAILY PRN Patient History Healthcare decision maker Resuscitation status Advanced Directive on File Review of Systems All Other Systems: negative except mentioned in HPI Physical Exam General Appearance: no apparent distress Lines, tubes and drains: peripheral HEENT: normocephalic, atraumatic Neck: non-tender, normal alignment Respiratory/Chest: chest wall non-tender, crackles/rales Cardiovascular/Chest: normal peripheral pulses, normal rate Extremities: trace edema Skin Exam: normal pigmentation Neurologic: alert, oriented x 3 Last 24 Hour Vital Signs Date Time Temp Pulse Resp B/P (MAP) Pulse Ox O2 Delivery O2 Flow Rate FiO2 12/28/20 09:00 127/41 12/28/20 09:00 99 127/41 12/28/20 08:00 4.0 30 12/28/20 08:00 91 12/28/20 08:00 97.9 99 16 127/41 (69) 99 12/28/20 08:00 Nasal Cannula 2.0 12/28/20 07:15 100 Nasal Cannula 2.0 28 12/28/20 05:51 137/65 12/28/20 04:00 82 12/28/20 04:00 4.0 30 12/28/20 04:00 Nasal Cannula 2.0 12/28/20 04:00 97.9 98 18 137/65 (89) 100 12/28/20 01:55 Room Air 4.0 12/28/20 01:00 98.1 83 20 126/61 (82) 100 12/28/20 00:40 98.5 98 18 110/60 100 Bi-pap 15.0 30 12/27/20 23:53 81 20 100 30 12/27/20 23:20 98.6 94 18 129/57 100 Bi-pap 15.0 30 12/27/20 23:10 115/60 12/27/20 22:43 98.5 100 18 117/78 100 Bi-pap 15.0 30 12/27/20 22:30 94 Nasal Cannula 2.0 28 12/27/20 21:50 98.6 115 18 127/98 96 Bi-pap 15.0 30 12/27/20 21:35 123 18 117/74 99 Bi-pap 15.0 30 12/27/20 21:20 111/60 12/27/20 21:07 Bi-pap 15.0 99 1/31/21 20:52 98.5 125 21 114/65 94 Bi-pap 30 12/27/20 20:17 156/81 12/27/20 20:07 140 28 99 30 12/27/20 19:52 99.0 165 31 182/110 (134) 92 Non-Rebreather 15.0 Intake and Output 12/27/20 12/28/20 19:00 07:00 Intake Total 350 ml Output Total 200 ml Balance 150 ml Intake Oral 0 ml IV Total 350 ml Output Urine Total 200 ml Laboratory Tests Test 12/27/20 20:05 12/27/20 22:02 12/27/20 22:20 12/27/20 23:35 White Blood Count 14.4 K/UL (4.8-10.8) H Red Blood Count 3.15 M/UL (4.20-5.40) L Hemoglobin 9.1 G/DL (12.0-16.0) L Hematocrit 29.2 % (37.0-47.0) L Mean Corpuscular Volume 93 FL (80-99) Mean Corpuscular Hemoglobin 29.0 PG (27.0-31.0) Mean Corpuscular Hemoglobin Concent 31.3 G/DL (32.0-36.0) L Red Cell Distribution Width 16.7 % (11.6-14.8) H Platelet Count 380 K/UL (150-450) Mean Platelet Volume 7.4 FL (6.5-10.1) Neutrophils (%) (Auto) 41.9 % (45.0-75.0) L Lymphocytes (%) (Auto) 46.9 % (20.0-45.0) H Monocytes (%) (Auto) 7.0 % (1.0-10.0) Eosinophils (%) (Auto) 2.9 % (0.0-3.0) Basophils (%) (Auto) 1.2 % (0.0-2.0) Prothrombin Time 12.7 SEC (9.30-11.50) H Prothromb Time International Ratio 1.2 (0.9-1.1) H Activated Partial Thromboplast Time 42 SEC (23-33) H D-Dimer 10.75 mg/L FEU (0.00-0.49) H Sodium Level 134 MMOL/L (136-145) L Potassium Level 3.9 MMOL/L (3.5-5.1) Chloride Level 99 MMOL/L (98-107) Carbon Dioxide Level 22 MMOL/L (21-32) Anion Gap 14 mmol/L (5-15) Blood Urea Nitrogen 33 mg/dL (7-18) H Creatinine 2.6 MG/DL (0.55-1.30) H Estimat Glomerular Filtration Rate 17.7 mL/min (>60) Glucose Level 333 MG/DL (74-106) H Lactic Acid Level 6.70 mmol/L (0.4-2.0) H 1.90 mmol/L (0.66-2.22) Calcium Level 8.4 MG/DL (8.5-10.1) L Phosphorus Level 5.1 MG/DL (2.5-4.9) H Magnesium Level 2.1 MG/DL (1.8-2.4) Ferritin 196 NG/ML (8-388) Total Bilirubin 0.4 MG/DL (0.2-1.0) Aspartate Amino Transf (AST/SGOT) 23 U/L (15-37) Alanine Aminotransferase (ALT/SGPT) 24 U/L (12-78) Alkaline Phosphatase 131 U/L (46-116) H Lactate Dehydrogenase 305 U/L (81-234) H Total Creatine Kinase 63 U/L (26-308) Creatine Kinase MB 0.7 NG/ML (0.0-3.6) Creatine Kinase MB Relative Index 1.1 Troponin I 0.044 ng/mL (0.000-0.056) C-Reactive Protein, Quantitative 1.1 mg/dL (0.00-0.90) H Pro-B-Type Natriuretic Peptide 89226 pg/mL (0-125) H Total Protein 7.8 G/DL (6.4-8.2) Albumin 2.8 G/DL (3.4-5.0) L Globulin 5.0 g/dL Albumin/Globulin Ratio 0.6 (1.0-2.7) L Lipase 846 U/L (73-393) H Arterial Blood pH 7.544 (7.350-7.450) Arterial Blood Partial Pressure CO2 30.0 mmHg (35.0-45.0) L Arterial Blood Partial Pressure O2 100.7 mmHg (75.0-100.0) H Arterial Blood HCO3 25.3 mmol/L (22.0-26.0) Arterial Blood Oxygen Saturation 97.0 % (95-100) Arterial Blood Base Excess 3.1 (-2-2) H Darek Test Positive Urine Color Pale yellow Urine Appearance Clear Urine pH 6 (4.5-8.0) Urine Specific [place]coe 1.010 (1.005-1.035) Urine Protein 2+ (NEGATIVE) H Urine Glucose (UA) Negative (NEGATIVE) Urine Ketones Negative (NEGATIVE) Urine Blood Negative (NEGATIVE) Urine Nitrite Negative (NEGATIVE) Urine Bilirubin Negative (NEGATIVE) Urine Urobilinogen Normal MG/DL (0.0-1.0) Urine Leukocyte Esterase Negative (NEGATIVE) Urine RBC 0 /HPF (0 - 2) Urine WBC 0-2 /HPF (0 - 2) Urine Squamous Epithelial Cells Few /LPF (NONE/OCC) Urine Bacteria Few /HPF (NONE) Urine Fine Granular Casts 0-2 /LPF (NONE) H Urine Random Sodium 94 mmol/L (20-110) POC Whole Blood Glucose 125 MG/DL (74-106) H Test 12/28/20 01:11 12/28/20 05:04 12/28/20 05:54 12/28/20 11:18 POC Whole Blood Glucose 158 MG/DL (74-106) H 177 MG/DL (74-106) H White Blood Count 5.5 K/UL (4.8-10.8) # Red Blood Count 2.94 M/UL (4.20-5.40) L Hemoglobin 8.2 G/DL (12.0-16.0) L Hematocrit 26.5 % (37.0-47.0) L Mean Corpuscular Volume 90 FL (80-99) Mean Corpuscular Hemoglobin 27.9 PG (27.0-31.0) Mean Corpuscular Hemoglobin Concent 31.1 G/DL (32.0-36.0) L Red Cell Distribution Width 16.0 % (11.6-14.8) H Platelet Count 262 K/UL (150-450) Mean Platelet Volume 8.2 FL (6.5-10.1) Neutrophils (%) (Auto) 80.7 % (45.0-75.0) H Lymphocytes (%) (Auto) 17.5 % (20.0-45.0) L Monocytes (%) (Auto) 1.6 % (1.0-10.0) Eosinophils (%) (Auto) 0.0 % (0.0-3.0) Basophils (%) (Auto) 0.1 % (0.0-2.0) Sodium Level 137 MMOL/L (136-145) Potassium Level 4.2 MMOL/L (3.5-5.1) Chloride Level 102 MMOL/L (98-107) Carbon Dioxide Level 25 MMOL/L (21-32) Anion Gap 10 mmol/L (5-15) Blood Urea Nitrogen 34 mg/dL (7-18) H Creatinine 2.2 MG/DL (0.55-1.30) H Estimat Glomerular Filtration Rate 21.4 mL/min (>60) Glucose Level 192 MG/DL (74-106) #H Hemoglobin A1c 5.7 % (4.3-6.0) Lactic Acid Level 0.50 mmol/L (0.4-2.0) Uric Acid 11.0 MG/DL (2.6-7.2) H Calcium Level 8.4 MG/DL (8.5-10.1) L Phosphorus Level 3.3 MG/DL (2.5-4.9) Magnesium Level 1.8 MG/DL (1.8-2.4) Iron Level 38 ug/dL (50-175) L Total Iron Binding Capacity 255 ug/dL (250-450) Percent Iron Saturation 15 % (15-50) Unsaturated Iron Binding 217 ug/dL (112-346) Total Bilirubin 0.3 MG/DL (0.2-1.0) Gamma Glutamyl Transpeptidase 94 U/L (5-85) H Aspartate Amino Transf (AST/SGOT) 20 U/L (15-37) Alanine Aminotransferase (ALT/SGPT) 20 U/L (12-78) Alkaline Phosphatase 123 U/L (46-116) H Troponin I 0.304 ng/mL (0.000-0.056) C-Reactive Protein, Quantitative 1.0 mg/dL (0.00-0.90) H Pro-B-Type Natriuretic Peptide 20061 pg/mL (0-125) H Total Protein 7.3 G/DL (6.4-8.2) Albumin 2.7 G/DL (3.4-5.0) L Globulin 4.6 g/dL Albumin/Globulin Ratio 0.6 (1.0-2.7) L Triglycerides Level 62 MG/DL (30-150) Cholesterol Level 169 MG/DL (< 200) LDL Cholesterol 110 mg/dL (<100) H HDL Cholesterol 55 MG/DL (40-60) Cholesterol/HDL Ratio 3.1 (3.3-4.4) L Vitamin B12 Level > 2000 PG/ML (193-986) H Vitamin D 25-Hydroxy Pending 25-Hydroxy Vitamin D2 Pending 25-Hydroxy Vitamin D3 Pending Folate 6.9 NG/ML (8.6-58.9) L Thyroid Stimulating Hormone (TSH) 1.366 uiU/mL (0.358-3.740) Arterial Blood pH 7.519 (7.350-7.450) Arterial Blood Partial Pressure CO2 31.0 mmHg (35.0-45.0) L Arterial Blood Partial Pressure O2 130.2 mmHg (75.0-100.0) H Arterial Blood HCO3 24.7 mmol/L (22.0-26.0) Arterial Blood Oxygen Saturation 98.5 % (95-100) Arterial Blood Base Excess 2.0 (-2-2) Darek Test Positive Height (Feet): 5 Height (Inches): 5.00 Weight (Pounds): 135 Medications Current Medications Medications (Trade) Dose Ordered Sig/Prateek Route PRN Reason Start Time Stop Time Status Last Admin Dose Admin Acetaminophen (Tylenol) 650 mg Q4H PRN ORAL pain 12/27/20 21:45 01/26/21 21:44 Aspirin (Ecotrin) 81 mg DAILY ORAL 12/28/20 09:00 02/11/21 08:59 12/28/20 09:00 Carvedilol (Coreg) 12.5 mg EVERY 12 HOURS ORAL 12/28/20 09:00 01/27/21 08:59 12/28/20 09:00 Clonidine HCl (Catapres Tab) 0.1 mg Q4H PRN ORAL bp over 160 syst 12/27/20 22:00 03/27/21 21:59 Dextrose (Dextrose 50%) 25 ml Q30M PRN IV Hypoglycemia 12/28/20 02:00 03/28/21 01:59 Dextrose (Dextrose 50%) 50 ml Q30M PRN IV Hypoglycemia 12/28/20 02:00 03/28/21 01:59 Docusate Sodium (Colace) 100 mg TID ORAL 12/28/20 09:00 01/27/21 08:59 12/28/20 09:00 Famotidine (Pepcid) 20 mg BID ORAL 12/28/20 09:00 03/28/21 08:59 12/28/20 09:00 Furosemide (Lasix) 40 mg DAILY IV 12/28/20 09:00 01/27/21 08:59 12/28/20 09:00 Hydralazine HCl (Apresoline) 10 mg Q8HR ORAL 12/27/20 22:00 03/27/21 21:59 12/28/20 05:51 Insulin Aspart (NovoLOG) BEFORE MEALS AND HS SUBQ 12/28/20 06:30 03/28/21 06:29 12/28/20 07:46 Isosorbide Dinitrate (Isordil) 20 mg THREE TIMES A DAY ORAL 12/28/20 09:00 01/27/21 08:59 12/28/20 09:00 Spironolactone (Aldactone) 25 mg DAILY ORAL 12/28/20 09:00 01/27/21 08:59 12/28/20 09:00 Assessment/Plan Diagnosis [place] I: #GEORGE on CKD baseline Cr close to 2 #acute on chronic CHF #systolic CHF #pafib #acute on chronic anemia #HTN #DM #HLD - lasix 40 IV daily - maintain cabrera - strict I&Os - monitor weights - imdur 20 BID - hydralazine 10 TID - aldactone 25mg daily - coreg 12.5 BID - monitor BP - monitor mag and phos time spent 65min Judith Garland M.D. Dec 28, 2020 11:58
--- NOTE | 2020-12-28 12:49 | History & Physical ---
History and Physical History & Physicial Attending physician: Dr. Espinosa Reason for admission: Hypoxia, COPD exacerbation HPI: This is an 80-year-old female with history of CHF. She has a history of medical noncompliance. She was admitted to the hospital last night for evaluation of shortness of breath over few days with intermittent chest pain. She was hypoxic on arrival and was placed on nonrebreather and then BiPAP. Now she is back to low flow oxygen via nasal c annula. She reportedly had COVID-19 in early November and has recovered. Of note, she was hospitalized here in early October 2020 for UTI and CHF. At that time, she was diuresed and she improved significantly. There is a notation that she is on oxygen at home, but, however this has been refuted. She is no longer on home oxygen. The patient has also been admitted to [facility] for similar problem in the past. She has also been on BiPAP. It was remarkable that previous admission the patient was discharged, however, left in a hurry with daughter and did not take any prescriptions, which was subsequently could not be reached to her as well. PAST MEDICAL HISTORY: Diabetes mellitus, hypertension, CHF, COPD. Not on home oxygen. MEDICATIONS: Her current list of medications include Coumadin, aspirin, Lasix, atenolol, Lipitor, amlodipine, losartan, metformin, Januvia, and Aldactone. REVIEW OF SYSTEMS: Denies any headaches, hematemesis, melena, or hematochezia. PHYSICAL EXAMINATION: GENERAL: Revealed an 80-year-old female. HEENT: Unremarkable. VITAL SIGNS: Show blood pressure of 127/41, heart rate 99, respirations 16. O2 saturation 99 % on 2 L NC LUNGS: Clear breath sounds bilaterally with crackles. HEART: Normal heart sounds. ABDOMEN: Soft. EXTREMITIES: There is 1+ edema. Laboratory data: Lab testing shows WBC 5.5, Hgb 8.2, hematocrit 26.5 Chemistries BUN 34, creatinine 2.2, glucose normal 92, uric acid 11, calcium 8.4, iron 38, BNP 34650, CRP 1, troponin 0.304, folate 6.9 ABG respiratory alkalosis, improving Impression and recommendation: 1. Anemia -Low iron, and folic acid -We will transfuse as needed to keep hemoglobin >8 2. Hypoxic respiratory failure on arrival -She is now tolerating 2 L NC - Will wean as tolerated 3. CHF -Seen by cardio 4. GEORGE on CKD -Seen by nephro -We will continue Smith for now to monitor urine output 5. History of paroxysmal atrial fibrillation, on warfarin -We will continue Coumadin 6. History of apical thrombus, elevated D-dimer -Full anticoagulation in place 7. Recent history of COVID-19 -Chest x-ray notable for probable community-acquired pneumonia -May be recovering from COVID-19 infection The care for this patient was discussed with my supervising physician. Time spent for this case was approximately 31 minutes. Sean Herring Dec 28, 2020 12:49
--- NOTE | 2020-12-28 13:44 | NUR ---
INSURANCE [employer]ICALS FAXED TO [employer] [phone]
[2020-12-28 14:21] LABS: INR 1.1 (0.9-1.1)
--- NOTE | 2020-12-28 15:55 | Diagnostic Imaging Report ---
Indication: Acute renal failure Technique: Grayscale and duplex images of the kidneys, retroperitoneum, and bladder were obtained. Comparison: none Findings: Right kidney measures 10.3 cm in length. Left kidney measures 10.9 cm in length. Both kidneys demonstrate normal echogenicity. No hydronephrosis. There are bilateral renal cysts. Normal inferior vena cava. Bladder is empty and contains a Smith catheter. Impression: Negative for hydronephrosis Empty bladder with a Smith catheter Bilateral renal cysts.
[2020-12-28] MEDS ORDERED: Warfarin Sodium 5mg ORAL SCH (17:00)
--- NOTE | 2020-12-28 19:33 | NUR ---
NURSE NOTES: Received report from ROSY Arellano. AAO x 4, on NC 4L, resting in bed. Bipap will use as needed. IV site intact and patent. Denies pain or discomfort. Smith intact and draining yellow urine well by gravity. hall monitor connected to the pt. PUI isolation maintained. Bed locked, lowest position, alarm on, side rails up, call light within reach. Will continue to monitor.
[2020-12-28] MEDS: Iron Sucrose 100 MG in NS 55 ML IVPB SCH (20:50)
--- NOTE | 2020-12-28 23:34 | NUR ---
NURSE NOTES: Pt sleeping in bed. No acute distress noted at this time. Tolerating NC 4L now. Will continue to monitor.
[2020-12-29] VITALS: BP 101/40
--- NOTE | 2020-12-29 00:59 | Cardiology Progress Note ---
Subjective DATE OF SERVICE: Dec 28, 2020 No chest pain; troponin increased to 0.300 Remained on bipap support overnight. Monitor: sinus with ectopics and BBB Objective Last 24 Hour Vital Signs Date Time Temp Pulse Resp B/P (MAP) Pulse Ox O2 Delivery O2 Flow Rate FiO2 12/29/20 00:00 4.0 40 12/29/20 00:00 Nasal Cannula 4.0 12/29/20 00:00 97.9 78 20 101/40 (60) 99 12/29/20 00:00 76 12/28/20 20:51 89 122/53 12/28/20 20:00 97.9 89 18 122/53 (76) 100 12/28/20 20:00 4.0 40 12/28/20 20:00 81 12/28/20 20:00 Nasal Cannula 4.0 12/28/20 19:42 99 Nasal Cannula 3.0 32 12/28/20 19:42 88 20 99 Nasal Cannula 3.0 32 12/28/20 18:09 98.0 83 20 122/51 (74) 100 12/28/20 17:00 122/51 12/28/20 16:00 Nasal Cannula 2.0 12/28/20 16:00 97.9 99 16 127/41 (69) 99 12/28/20 16:00 82 12/28/20 16:00 4.0 30 12/28/20 14:00 122/51 12/28/20 13:00 122/51 12/28/20 12:20 92 12/28/20 12:00 Nasal Cannula 2.0 12/28/20 12:00 97.9 99 16 127/41 (69) 99 12/28/20 12:00 4.0 30 12/28/20 09:00 127/41 12/28/20 09:00 99 127/41 12/28/20 08:00 4.0 30 12/28/20 08:00 91 12/28/20 08:00 97.9 99 16 127/41 (69) 99 12/28/20 08:00 Nasal Cannula 2.0 12/28/20 07:15 100 Nasal Cannula 2.0 28 12/28/20 05:51 137/65 12/28/20 04:00 82 12/28/20 04:00 4.0 30 12/28/20 04:00 Nasal Cannula 2.0 12/28/20 04:00 97.9 98 18 137/65 (89) 100 12/28/20 01:55 Room Air 4.0 12/28/20 01:00 98.1 83 20 126/61 (82) 100 ROS: no change from data of 12/27/20 HEENT: normal ENT inspection RHYTHM: NSR, PVCs, other - LBBB CARDIAC: normal rate, regular rhythm, normal S1 and S2, systolic murmur - 2/6 systolic murmur at apex, diastolic murmur - 1/4 diastolic decrescendo ABDOMEN: non tender, soft, hepatomegaly EXTREMITIES: normal range of motion, no calf tenderness, +1 edema Laboratory Tests Test 12/28/20 01:11 12/28/20 05:04 12/28/20 05:54 12/28/20 11:18 POC Whole Blood Glucose 158 MG/DL (74-106) H 177 MG/DL (74-106) H White Blood Count 5.5 K/UL (4.8-10.8) # Red Blood Count 2.94 M/UL (4.20-5.40) L Hemoglobin 8.2 G/DL (12.0-16.0) L Hematocrit 26.5 % (37.0-47.0) L Mean Corpuscular Volume 90 FL (80-99) Mean Corpuscular Hemoglobin 27.9 PG (27.0-31.0) Mean Corpuscular Hemoglobin Concent 31.1 G/DL (32.0-36.0) L Red Cell Distribution Width 16.0 % (11.6-14.8) H Platelet Count 262 K/UL (150-450) Mean Platelet Volume 8.2 FL (6.5-10.1) Neutrophils (%) (Auto) 80.7 % (45.0-75.0) H Lymphocytes (%) (Auto) 17.5 % (20.0-45.0) L Monocytes (%) (Auto) 1.6 % (1.0-10.0) Eosinophils (%) (Auto) 0.0 % (0.0-3.0) Basophils (%) (Auto) 0.1 % (0.0-2.0) Sodium Level 137 MMOL/L (136-145) Potassium Level 4.2 MMOL/L (3.5-5.1) Chloride Level 102 MMOL/L (98-107) Carbon Dioxide Level 25 MMOL/L (21-32) Anion Gap 10 mmol/L (5-15) Blood Urea Nitrogen 34 mg/dL (7-18) H Creatinine 2.2 MG/DL (0.55-1.30) H Estimat Glomerular Filtration Rate 21.4 mL/min (>60) Glucose Level 192 MG/DL (74-106) #H Hemoglobin A1c 5.7 % (4.3-6.0) Lactic Acid Level 0.50 mmol/L (0.4-2.0) Uric Acid 11.0 MG/DL (2.6-7.2) H Calcium Level 8.4 MG/DL (8.5-10.1) L Phosphorus Level 3.3 MG/DL (2.5-4.9) Magnesium Level 1.8 MG/DL (1.8-2.4) Iron Level 38 ug/dL (50-175) L Total Iron Binding Capacity 255 ug/dL (250-450) Percent Iron Saturation 15 % (15-50) Unsaturated Iron Binding 217 ug/dL (112-346) Total Bilirubin 0.3 MG/DL (0.2-1.0) Gamma Glutamyl Transpeptidase 94 U/L (5-85) H Aspartate Amino Transf (AST/SGOT) 20 U/L (15-37) Alanine Aminotransferase (ALT/SGPT) 20 U/L (12-78) Alkaline Phosphatase 123 U/L (46-116) H Troponin I 0.304 ng/mL (0.000-0.056) C-Reactive Protein, Quantitative 1.0 mg/dL (0.00-0.90) H Pro-B-Type Natriuretic Peptide 98800 pg/mL (0-125) H Total Protein 7.3 G/DL (6.4-8.2) Albumin 2.7 G/DL (3.4-5.0) L Globulin 4.6 g/dL Albumin/Globulin Ratio 0.6 (1.0-2.7) L Triglycerides Level 62 MG/DL (30-150) Cholesterol Level 169 MG/DL (< 200) LDL Cholesterol 110 mg/dL (<100) H HDL Cholesterol 55 MG/DL (40-60) Cholesterol/HDL Ratio 3.1 (3.3-4.4) L Vitamin B12 Level > 2000 PG/ML (193-986) H Vitamin D 25-Hydroxy Pending 25-Hydroxy Vitamin D2 Pending 25-Hydroxy Vitamin D3 Pending Folate 6.9 NG/ML (8.6-58.9) L Thyroid Stimulating Hormone (TSH) 1.366 uiU/mL (0.358-3.740) Arterial Blood pH 7.519 (7.350-7.450) Arterial Blood Partial Pressure CO2 31.0 mmHg (35.0-45.0) L Arterial Blood Partial Pressure O2 130.2 mmHg (75.0-100.0) H Arterial Blood HCO3 24.7 mmol/L (22.0-26.0) Arterial Blood Oxygen Saturation 98.5 % (95-100) Arterial Blood Base Excess 2.0 (-2-2) Darek Test Positive Test 12/28/20 13:30 12/28/20 17:27 12/28/20 21:01 Prothrombin Time 12.5 SEC (9.30-11.50) H Prothromb Time International Ratio 1.1 (0.9-1.1) POC Whole Blood Glucose 164 MG/DL (74-106) H 104 MG/DL (74-106) Assessment/Plan Assessment/Plan Non-compliance Acute respiratory failure with hypoxia NSTE myocardial infarction Dilated hypertensive and ischemic cardiomyopathy Ac/chronic systolic CHF Mild pulmonary hypertension 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
--- NOTE | 2020-12-29 03:00 | NUR ---
NURSE NOTES: Titrated O2 NC 3l and tolerating well. Pt sleeping without any respiratory distress. Vitals stable.
[2020-12-29 04:00] VITALS: BP 115/53
[2020-12-29 05:43] LABS: INR 1.2 (0.9-1.1)
[2020-12-29 05:50] LABS: HEMATOCRIT 22.6 % (37.0-47.0); MEAN CORPUSCULAR VOLUME 91 FL (80-99); PLATELET COUNT 243 K/UL (150-450); RED BLOOD COUNT 2.49 M/UL (4.20-5.40); RED CELL DISTRIBUTION WIDTH 16.2 % (11.6-14.8); WHITE BLOOD COUNT 10.3 K/UL (4.8-10.8)
[2020-12-29] MEDS: NovoLOG Insulin Flexpen SUBQ SCH ×4 (05:51→21:00)
[2020-12-29] MEDS: HydrALAZINE 25mg tab ORAL SCH ×3 (05:52→21:56)
[2020-12-29 06:09] LABS: CALCIUM 8.4 MG/DL (8.5-10.1); CREATININE 2.2 MG/DL (0.55-1.30); PHOSPHORUS 3.3 MG/DL (2.5-4.9); POTASSIUM 4.5 MMOL/L (3.5-5.1)
--- NOTE | 2020-12-29 07:02 | NUR ---
NURSE NOTES: Left message Dr. Espinosa regarding Hgb 7.0 today. Awaiting for call back.
--- NOTE | 2020-12-29 07:16 | NUR ---
NURSE HAND-OFF REPORT: important Events on Shift:titrated NC 3l, hgb trending down 7.0 Patient Status: Diet: reg Pending Orders: Pending Results/Labs: Pending MD notification: Latest Vital Signs: Temperature 99.1 , Pulse 75 , B/P 118 /45 , Respiratory Rate 18 , O2 SAT 100 , Bi-pap, O2 Flow Rate 3.0 . Vital Sign Comment: [] EKG Rhythm: SR with BBB Rhythm change?: N MD Notified?: Hussain -Dr. Francisca LAND Response: Latest Vaca Fall Score: 30 Fall Risk: Medium Risk Safety Measures: Call light Within Reach, Bed Alarm Zone 1, Side Rails Side Rails x1, Bed position Low and Locked. Fall Precautions: Yellow Socks Patient Fall Education Report given to [Darek].
[2020-12-29 08:00] VITALS: BP 105/47
[2020-12-29] MEDS: Carvedilol 12.5mg tab ORAL SCH ×2 (09:00→21:56)
--- NOTE | 2020-12-29 09:14 | Nephrology Progress Note ---
Assessment/Plan Plan #GEORGE on CKD baseline Cr close to 2 #acute on chronic CHF #systolic CHF #pafib #acute on chronic anemia #HTN #DM #HLD - lasix 40 IV daily - maintain cabrera - strict I&Os - monitor weights - imdur 20 BID - hydralazine 10 TID - aldactone 25mg daily - coreg 12.5 BID - monitor BP - monitor mag and phos time spent 65min Subjective ROS Limited/Unobtainable: No Constitutional: Reports: weakness HEENT: Denies: no symptoms, eye pain, blurred vision, tearing, double vision, ear pain, ear discharge, nose pain, nose congestion, throat pain, throat swelling, mouth pain, mouth swelling, other Genitourinary: Denies: no symptoms, burning, discharge, frequency, flank pain, hematuria, incontinence, pain, urgency, other Neurologic/Psychiatric: Denies: no symptoms, anxiety, depressed, emotional problems, headache, numbness, paresthesia, pre-existing deficit, seizure, tingling, tremors, weakness, other Subjective Cr 2.3 BP stable Renal US: Impression: Negative for hydronephrosis Empty bladder with a Cabrera catheter Bilateral renal cysts. Objective Objective Last 24 Hour Vital Signs Date Time Temp Pulse Resp B/P (MAP) Pulse Ox O2 Delivery O2 Flow Rate FiO2 12/29/20 05:52 118/45 12/29/20 04:00 99.1 81 18 115/53 (73) 100 12/29/20 04:00 3.0 12/29/20 04:00 75 12/29/20 04:00 Nasal Cannula 4.0 12/29/20 00:00 3.0 12/29/20 00:00 Nasal Cannula 4.0 12/29/20 00:00 97.9 78 20 101/40 (60) 99 12/29/20 00:00 76 12/28/20 20:51 89 122/53 12/28/20 20:00 97.9 89 18 122/53 (76) 100 12/28/20 20:00 3.0 12/28/20 20:00 81 12/28/20 20:00 Nasal Cannula 4.0 12/28/20 19:42 99 Nasal Cannula 3.0 32 12/28/20 19:42 88 20 99 Nasal Cannula 3.0 32 12/28/20 18:09 98.0 83 20 122/51 (74) 100 12/28/20 17:00 122/51 12/28/20 16:00 Nasal Cannula 2.0 12/28/20 16:00 97.9 99 16 127/41 (69) 99 12/28/20 16:00 82 12/28/20 16:00 4.0 30 12/28/20 14:00 122/51 12/28/20 13:00 122/51 12/28/20 12:20 92 12/28/20 12:00 Nasal Cannula 2.0 12/28/20 12:00 97.9 99 16 127/41 (69) 99 12/28/20 12:00 4.0 30 Intake and Output 12/28/20 12/29/20 19:00 07:00 Intake Total 300 ml Output Total 700 ml Balance -400 ml Intake Oral 240 ml IV Total 60 ml Output Urine Total 700 ml Laboratory Tests 12/28/20 11:18: Arterial Blood pH 7.519H, Arterial Blood Partial Pressure CO2 31.0L, Arterial Blood Partial Pressure O2 130.2H, Arterial Blood HCO3 24.7, Arterial Blood Oxygen Saturation 98.5, Arterial Blood Base Excess 2.0, Darek Test Positive 12/28/20 13:30: Prothrombin Time 12.5H, Prothromb Time International Ratio 1.1 12/28/20 17:27: POC Whole Blood Glucose 164H 12/28/20 21:01: POC Whole Blood Glucose 104 12/29/20 03:10: White Blood Count 10.3#, Red Blood Count 2.49L, Hemoglobin 7.0L, Hematocrit 22.6L, Mean Corpuscular Volume 91, Mean Corpuscular Hemoglobin 28.2, Mean Corpuscular Hemoglobin Concent 31.1L, Red Cell Distribution Width 16.2H, Platelet Count 243, Mean Platelet Volume 8.1, Neutrophils (%) (Auto) , Lymp hocytes (%) (Auto) , Monocytes (%) (Auto) , Eosinophils (%) (Auto) , Basophils (%) (Auto) , Differential Total Cells Counted 100, Neutrophils % (Manual) 72, Lymphocytes % (Manual) 24, Monocytes % (Manual) 4, Eosinophils % (Manual) 0, Basophils % (Manual) 0, Band Neutrophils 0, Platelet Estimate Adequate, Platelet Morphology Normal, Hypochromasia 1+, Anisocytosis 1+, Prothrombin Time 12.8H, Prothromb Time International Ratio 1.2H, Sodium Level 138, Potassium Level 4.5, Chloride Level 103, Carbon Dioxide Level 27, Anion Gap 8, Blood Urea Nitrogen 34H, Creatinine 2.2H, Estimat Glomerular Filtration Rate 21.4, Glucose Level 86#, Calcium Level 8.4L, Phosphorus Level 3.3, Magnesium Level 1.9, Ferritin 138, Troponin I 0.135H 12/29/20 05:49: POC Whole Blood Glucose 88 Height (Feet): 5 Height (Inches): 5.00 Weight (Pounds): 135 Objective General Appearance: no apparent distress Lines, tubes and drains: peripheral HEENT: normocephalic, atraumatic Neck: non-tender, normal alignment Respiratory/Chest: chest wall non-tender, crackles/rales Cardiovascular/Chest: normal peripheral pulses, normal rate Extremities: trace edema Skin Exam: normal pigmentation Neurologic: alert, oriented x 3 Judith Garland M.D. Dec 29, 2020 09:13
--- NOTE | 2020-12-29 10:14 | Pulmonology Progress Note ---
Subjective ROS Limited/Unobtainable: No Interval Events: Hgb drop Constitutional: Reports: no symptoms HEENT: Repors: no symptoms Respiratory: Reports: no symptoms Cardiovascular: Reports: no symptoms Gastrointestinal/Abdominal: Reports: no symptoms Allergies: Coded Allergies: No Known Allergies (Unverified , 05/01/13) Objective Last 24 Hour Vital Signs Date Time Temp Pulse Resp B/P (MAP) Pulse Ox O2 Delivery O2 Flow Rate FiO2 12/29/20 08:00 88 12/29/20 05:52 118/45 12/29/20 04:00 99.1 81 18 115/53 (73) 100 12/29/20 04:00 3.0 12/29/20 04:00 75 12/29/20 04:00 Nasal Cannula 4.0 12/29/20 00:00 3.0 12/29/20 00:00 Nasal Cannula 4.0 12/29/20 00:00 97.9 78 20 101/40 (60) 99 12/29/20 00:00 76 12/28/20 20:51 89 122/53 12/28/20 20:00 97.9 89 18 122/53 (76) 100 12/28/20 20:00 3.0 12/28/20 20:00 81 12/28/20 20:00 Nasal Cannula 4.0 12/28/20 19:42 99 Nasal Cannula 3.0 32 12/28/20 19:42 88 20 99 Nasal Cannula 3.0 32 12/28/20 18:09 98.0 83 20 122/51 (74) 100 12/28/20 17:00 122/51 12/28/20 16:00 Nasal Cannula 2.0 12/28/20 16:00 97.9 99 16 127/41 (69) 99 12/28/20 16:00 82 12/28/20 16:00 4.0 30 12/28/20 14:00 122/51 12/28/20 13:00 122/51 12/28/20 12:20 92 12/28/20 12:00 Nasal Cannula 2.0 12/28/20 12:00 97.9 99 16 127/41 (69) 99 12/28/20 12:00 4.0 30 Intake and Output 12/28/20 12/29/20 19:00 07:00 Intake Total 300 ml Output Total 700 ml Balance -400 ml Intake Oral 240 ml IV Total 60 ml Output Urine Total 700 ml General Appearance: no acute distress HEENT: atraumatic Respiratory: lungs clear Cardiovascular: normal rate Abdomen: soft, non tender Laboratory Tests 12/28/20 11:18: Arterial Blood pH 7.519H, Arterial Blood Partial Pressure CO2 31.0L, Arterial Blood Partial Pressure O2 130.2H, Arterial Blood HCO3 24.7, Arterial Blood Oxygen Saturation 98.5, Arterial Blood Base Excess 2.0, Darek Test Positive 12/28/20 13:30: Prothrombin Time 12.5H, Prothromb Time International Ratio 1.1 12/28/20 17:27: POC Whole Blood Glucose 164H 12/28/20 21:01: POC Whole Blood Glucose 104 12/29/20 03:10: White Blood Count 10.3#, Red Blood Count 2.49L, Hemoglobin 7.0L, Hematocrit 22.6L, Mean Corpuscular Volume 91, Mean Corpuscular Hemoglobin 28.2, Mean Corpuscular Hemoglobin Concent 31.1L, Red Cell Distribution Width 16.2H, Platelet Count 243, Mean Platelet Volume 8.1, Neutrophils (%) (Auto) , Lymphocytes (%) (Auto) , Monocytes (%) (Auto) , Eosinophils (%) (Auto) , Basophils (%) (Auto) , Differential Total Cells Counted 100, Neutrophils % (Manual) 72, Lymphocytes % (Manual) 24, Monocytes % (Manual) 4, Eosinophils % (Manual) 0, Basophils % (Manual) 0, Band Neutrophils 0, Platelet Estimate Adequate, Platelet Morphology Normal, Hypochromasia 1+, Anisocytosis 1+, Prothrombin Time 12.8H, Prothromb Time International Ratio 1.2H, Sodium Level 138, Potassium Level 4.5, Chloride Level 103, Carbon Dioxide Level 27, Anion Gap 8, Blood Urea Nitrogen 34H, Creatinine 2.2H, Estimat Glomerular Filtration Rate 21.4, Glucose Level 86#, Calcium Level 8.4L, Phosphorus Level 3.3, Magnesium Level 1.9, Ferritin 138, Troponin I 0.135H 12/29/20 05:49: POC Whole Blood Glucose 88 Current Medications Medications (Trade) Dose Ordered Sig/Prateek Route PRN Reason Start Time Stop Time Status Last Admin Dose Admin Acetaminophen (Tylenol) 650 mg Q4H PRN ORAL pain 12/27/20 21:45 01/26/21 21:44 12/29/20 06:01 Aspirin (Ecotrin) 81 mg DAILY ORAL 12/28/20 09:00 02/11/21 08:59 12/28/20 09:00 Carvedilol (Coreg) 12.5 mg EVERY 12 HOURS ORAL 12/28/20 09:00 01/27/21 08:59 12/28/20 20:51 Clonidine HCl (Catapres Tab) 0.1 mg Q4H PRN ORAL bp over 160 syst 12/27/20 22:00 03/27/21 21:59 Dextrose (Dextrose 50%) 25 ml Q30M PRN IV Hypoglycemia 12/28/20 02:00 03/28/21 01:59 Dextrose (Dextrose 50%) 50 ml Q30M PRN IV Hypoglycemia 12/28/20 02:00 03/28/21 01:59 Docusate Sodium (Colace) 100 mg TID ORAL 12/28/20 09:00 01/27/21 08:59 12/28/20 17:07 Famotidine (Pepcid) 20 mg BID ORAL 12/28/20 09:00 03/28/21 08:59 12/28/20 17:00 Furosemide (Lasix) 40 mg DAILY IV 12/28/20 09:00 01/27/21 08:59 12/28/20 09:00 Hydralazine HCl (Apresoline) 25 mg Q8HR ORAL 12/29/20 06:00 03/29/21 05:59 12/29/20 05:52 Insulin Aspart (NovoLOG) BEFORE MEALS AND HS SUBQ 12/28/20 06:30 03/28/21 06:29 12/28/20 16:30 Iron Sucrose 100 mg/Sodium Chloride 60 ml @ 240 mls/hr BEDTIME IVPB 12/28/20 21:00 01/01/21 21:14 12/28/20 20:50 Isosorbide Dinitrate (Isordil) 20 mg THREE TIMES A DAY ORAL 12/28/20 09:00 01/27/21 08:59 12/28/20 17:00 Spironolactone (Aldactone) 25 mg DAILY ORAL 12/28/20 09:00 01/27/21 08:59 12/28/20 09:00 Warfarin Sodium (Coumadin per pharmacy) 1 ea DAILY PRN MISC Per rx protocol 12/28/20 13:00 01/27/21 12:59 Warfarin Sodium (Coumadin) 5 mg COUMADIN ORAL 12/29/20 17:00 12/29/20 18:00 Assessment/Plan Assessment/Plan 1. Anemia, likely secondary to #4 -Low iron, and folic acid -We will transfuse as needed to keep hemoglobin >8 - will consult GI - Will order stool OB - consider Epogen? per nephro 2. Hypoxic respiratory failure on arrival -She is now on room air 3. CHF -Seen by cardio 4. GEORGE on CKD -Seen by nephro -We will continue Smith for now to monitor urine output 5. History of paroxysmal atrial fibrillation, on warfarin -We will continue Coumadin 6. History of apical thrombus, elevated D-dimer -Full anticoagulation in place 7. Recent history of COVID-19 -Chest x-ray notable for probable community-acquired pneumonia -May be recovering from COVID-19 infection - COVID-X status per guideline, can be off isolation Will transfer to tele The care for this patient was discussed with my supervising physician. Time spent for this case was approximately 31 minutes. Sean Herring Dec 29, 2020 10:14
[2020-12-29] MEDS: Docusate 100mg cap ORAL SCH ×3 (10:25→18:30)
[2020-12-29] MEDS: Aspirin EC 81mg tab ORAL SCH (10:25)
[2020-12-29] MEDS: Spironolactone 25mg tab ORAL SCH (10:26)
--- NOTE | 2020-12-29 10:30 | NUR ---
NURSE NOTES: Pt rcvd awake alert and oriented. no s/s of distress. pt on room air no resp distress. O2 sats 96%. cabrera patent with clear yellow urine. saline lock to left AC patent without signs of infection. pt denies c/o pain or SOB. AM meds given. AM dose of Coreg and Imdur held d/t low blood pressure. MARYAM Fitzpatrick and Dr. Espinosa notified. no new orders rcvd. pt informed of new to obtain stool specimen if she needs to have a bowel movement. pt also aware of need to call for assistance befor getting out of bed.
[2020-12-29 12:00] VITALS: BP 102/83
--- NOTE | 2020-12-29 12:35 | NUR ---
CASE MANAGEMENT:REVIEW 12/29/20 SI: RESP FAILURE. ANEMIA. CHF 99.1 81 18 115/53 100% ON 4L/NC H/H-7.0/22.6 BUN+34 CR+2.2 TROPONIN(+) 0.135 IS: COUMADIN 5MG PO HYDRALAZINE PO Q8HRS IV VENOFER QHS ALDACTONE PO QD IV LASIX QD ISORDIL PO TID COREG PO Q12 ASA PO QD : STEP DOWN UNIT DCP: FROM HOME PLAN: DOWN GRADE TO TELEMETRY UNIT
--- NOTE | 2020-12-29 14:15 | NUR ---
NURSE NOTES: Pt resting quietly. no s/s of distress. no needs or concerns voiced. pt aware of transfer to telemetry. VSS.
[2020-12-29 16:00] VITALS: BP 94/51
[2020-12-29] MEDS ORDERED: Warfarin Sodium 5mg ORAL SCH (17:00)
--- NOTE | 2020-12-29 18:25 | NUR ---
NURSE NOTES: Talked to Dr. Hernandez concerning pt's HBG of 7.0 and the order for Coumadin. Order rcvd to hold tonight's dose of Coumadin and to transfuse 1 unit of PRBC.
--- NOTE | 2020-12-29 18:30 | NUR ---
NURSE NOTES: Informed pt and pt's son over the phone of pt's status and plan of care. also discussed the need for 1 unit of PRBC. Consent obtained from the patient. Pt denies any c/o pain or SOB. No needs or concerns voiced.
--- NOTE | 2020-12-29 19:30 | NUR ---
NURSE HAND-OFF REPORT: Important Events on Shift: None Patient Status: Pt resting quietly. no s/s of distress. Needing 1 unit of PRBC Diet: Consistent Carbohydrate Diet Pending Orders: None Pending Results/Labs: None Pending MD notification: None Latest Vital Signs: Temperature 97.7 , Pulse 92 , B/P 94 /51 , Respiratory Rate 20 , O2 SAT 95 , Bi-pap, O2 Flow Rate 2.0 . Vital Sign Comment: None EKG Rhythm: Sinus Rhythm Rhythm change?: N Notified?: N MD Response: Latest Vaca Fall Score: 30 Fall Risk: Medium Risk Safety Measures: Call light Within Reach, Bed Alarm Zone 1, Side Rails Side Rails x1, Bed position Low and Locked. Fall Precautions: Yellow Socks Patient Fall Education Report given to ROSY Valdez
[2020-12-29 20:00] VITALS: BP 106/56
[2020-12-29] MEDS: Iron Sucrose 100 MG in NS 55 ML IVPB SCH (21:55)
[2020-12-30] VITALS: BP 112/44
--- NOTE | 2020-12-30 01:00 | NUR ---
1 unit prbc finished infusing. Pt tolerated infusion well. Pt currently sleeping, Will continue to monitor.
--- NOTE | 2020-12-30 01:47 | Cardiology Progress Note ---
Subjective DATE OF SERVICE: Dec 29, 2020 No chest pain; troponin peaked above 0.300; now at 0.158. Now comfortable on room air or low flow O2. Monitor: sinus with few ectopics and BBB Objective Last 24 Hour Vital Signs Date Time Temp Pulse Resp B/P (MAP) Pulse Ox O2 Delivery O2 Flow Rate FiO2 12/30/20 00:00 Room Air 12/30/20 00:00 97.7 87 20 112/44 (66) 96 12/30/20 00:00 87 12/29/20 21:56 115/48 12/29/20 21:56 90 115/48 12/29/20 20:00 Room Air 12/29/20 20:00 88 12/29/20 20:00 98.0 90 20 106/56 (73) 96 12/29/20 18:00 94/51 12/29/20 16:00 Room Air 12/29/20 16:00 97.7 92 20 94/51 (65) 95 12/29/20 15:38 93 12/29/20 14:00 103/46 12/29/20 13:00 103/46 12/29/20 12:00 97.3 90 21 102/83 (89) 98 12/29/20 12:00 Room Air 12/29/20 11:46 103 12/29/20 09:00 111/42 12/29/20 09:00 85 111/42 12/29/20 08:00 Room Air 12/29/20 08:00 88 12/29/20 08:00 97.5 87 21 105/47 (66) 98 12/29/20 07:19 100 Nasal Cannula 2.0 28 12/29/20 07:19 94 16 100 Nasal Cannula 2.0 28 12/29/20 05:52 118/45 12/29/20 04:00 99.1 81 18 115/53 (73) 100 12/29/20 04:00 3.0 12/29/20 04:00 75 12/29/20 04:00 Nasal Cannula 4.0 ROS: no change from data of 12/27/20 HEENT: normal ENT inspection RHYTHM: NSR, PVCs, other - LBBB CARDIAC: normal rate, regular rhythm, normal S1 and S2, systolic murmur - 2/6 systolic murmur at apex, diastolic murmur - 1/4 diastolic decrescendo ABDOMEN: non tender, soft, hepatomegaly EXTREMITIES: normal range of motion, no calf tenderness, +1 edema Laboratory Tests Test 12/29/20 03:10 12/29/20 05:49 12/29/20 10:41 12/29/20 16:54 White Blood Count 10.3 K/UL (4.8-10.8) # Red Blood Count 2.49 M/UL (4.20-5.40) L Hemoglobin 7.0 G/DL (12.0-16.0) L Hematocrit 22.6 % (37.0-47.0) L Mean Corpuscular Volume 91 FL (80-99) Mean Corpuscular Hemoglobin 28.2 PG (27.0-31.0) Mean Corpuscular Hemoglobin Concent 31.1 G/DL (32.0-36.0) L Red Cell Distribution Width 16.2 % (11.6-14.8) H Platelet Count 243 K/UL (150-450) Mean Platelet Volume 8.1 FL (6.5-10.1) Neutrophils (%) (Auto) % (45.0-75.0) Lymphocytes (%) (Auto) % (20.0-45.0) Monocytes (%) (Auto) % (1.0-10.0) Eosinophils (%) (Auto) % (0.0-3.0) Basophils (%) (Auto) % (0.0-2.0) Differential Total Cells Counted 100 Neutrophils % (Manual) 72 % (45-75) Lymphocytes % (Manual) 24 % (20-45) Monocytes % (Manual) 4 % (1-10) Eosinophils % (Manual) 0 % (0-3) Basophils % (Manual) 0 % (0-2) Band Neutrophils 0 % (0-8) Platelet Estimate Adequate Platelet Morphology Normal Hypochromasia 1+ Anisocytosis 1+ Prothrombin Time 12.8 SEC (9.30-11.50) H Prothromb Time International Ratio 1.2 (0.9-1.1) H Sodium Level 138 MMOL/L (136-145) Potassium Level 4.5 MMOL/L (3.5-5.1) Chloride Level 103 MMOL/L (98-107) Carbon Dioxide Level 27 MMOL/L (21-32) Anion Gap 8 mmol/L (5-15) Blood Urea Nitrogen 34 mg/dL (7-18) H Creatinine 2.2 MG/DL (0.55-1.30) H Estimat Glomerular Filtration Rate 21.4 mL/min (>60) Glucose Level 86 MG/DL (74-106) # Calcium Level 8.4 MG/DL (8.5-10.1) L Phosphorus Level 3.3 MG/DL (2.5-4.9) Magnesium Level 1.9 MG/DL (1.8-2.4) Ferritin 138 NG/ML (8-388) Troponin I 0.135 ng/mL (0.000-0.056) POC Whole Blood Glucose 88 MG/DL (74-106) Pending Pending Test 12/29/20 20:56 POC Whole Blood Glucose 94 MG/DL (74-106) Microbiology Date/Time Source Procedure Growth Status 12/27/20 20:15 Blood Blood Culture - Preliminary NO GROWTH AFTER 24 HOURS Resulted 12/27/20 20:00 Blood Blood Culture - Preliminary NO GROWTH AFTER 24 HOURS Resulted Assessment/Plan Assessment/Plan Non-compliance Acute respiratory failure with hypoxia 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 Diuresis as tolerated by renal parameters; maintenance oral dose soon. Maximize anti failure regimen Full anticoagulation Consider ICD when performance status and compliance better REMAINS high risk. Everett Iqbal MD Dec 30, 2020 01:47
--- NOTE | 2020-12-30 02:24 | Cardiology Report ---
APPROVED REPORT EXAM: Two-dimensional and M-mode echocardiogram with Doppler and color Doppler. INDICATION Congestive Heart Failure M-Mode DIMENSIONS IVSd1.0 (0.7-1.1cm)Left Atrium (MM)5.1 (1.6-4.0cm) LVDd6.5 (3.5-5.6cm)Aortic Root3.0 (2.0-3.7cm) PWd1.0 (0.7-1.1cm)Aortic Cusp Exc.2.0 (1.5-2.0cm) IVSs1.1 cmEPSS1.7 (>1.0cm) LVDs6.0 (2.5-4.0cm) PWs1.2 cm <Conclusion> Moderate left venticular enlargment. Global left venticular hypokinesis. Left ventricular ejection fraction estimated to be 20%. Global left ventricular wall hypokinesia. No evidence of left ventricular hypertrophy. Effusion noted on the right side along with RA wall . Mild Left atrial enlargement. Right cardiac chamber sizes are within normal limits. Focal aortic valve sclerosis with adequate cusp excursion. Thickened mitral valve leaflets with normal excursion. Mitral annulus and aortic root calcification. Pulmonic valve not well visualized. Normal tricuspid valve structure. IVC at normal size and collapsing with respiration. A color flow and spectral Doppler study was performed and revealed: Mild to Moderate aortic regurgitation. Moderate mitral regurgitation. Mitral inflow velocities indicates possible pseudo normalization pattern implying significant left ventricular diastolic dysfunction. Mild tricuspid regurgitation. Tricuspid systolic velocities suggests peak right ventricular systolic pressure of 40 mmHg, consistent with mild pulmonary hypertension.
[2020-12-30 04:00] VITALS: BP 94/51
[2020-12-30] MEDS: NovoLOG Insulin Flexpen SUBQ SCH ×4 (05:08→21:00)
[2020-12-30 05:12] LABS: BASOPHILS % (AUTO) 0.6 % (0.0-2.0); EOSINOPHILS % (AUTO) 4.7 % (0.0-3.0); HEMATOCRIT 26.3 % (37.0-47.0); HEMOGLOBIN 8.3 G/DL (12.0-16.0); LYMPHOCYTES % (AUTO) 13.2 % (20.0-45.0); MEAN CORPUSCULAR VOLUME 91 FL (80-99); MONOCYTES % (AUTO) 8.7 % (1.0-10.0); NEUTROPHILS % (AUTO) 72.9 % (45.0-75.0); PLATELET COUNT 220 K/UL (150-450); RED CELL DISTRIBUTION WIDTH 15.8 % (11.6-14.8); WHITE BLOOD COUNT 7.6 K/UL (4.8-10.8)
[2020-12-30] MEDS: HydrALAZINE 25mg tab ORAL SCH ×3 (05:13→21:27)
[2020-12-30 05:32] LABS: CALCIUM 8.5 MG/DL (8.5-10.1); CREATININE 2.3 MG/DL (0.55-1.30); POTASSIUM 4.2 MMOL/L (3.5-5.1)
[2020-12-30 05:51] LABS: INR 1.1 (0.9-1.1)
--- NOTE | 2020-12-30 07:28 | NUR ---
NURSE NOTES: Received report ROSY Ann,patient up fixing her bed,room air,hebrew speaking,few Iraqi
--- NOTE | 2020-12-30 07:31 | NUR ---
CASE MANAGEMENT:REVIEW 12/30/20 SI: RESP FAILURE. ANEMIA. CHF 98.1 100 20 94/51 95% ON RA H/H-8.3/26.3 BUN+31 CR+2.3 IS: COUMADIN 5MG PO HYDRALAZINE PO Q8HRS ~ HELD IV VENOFER QHS ALDACTONE PO QD IV LASIX QD ISORDIL PO TID COREG PO Q12 ASA PO QD : STEP DOWN UNIT DCP: FROM HOME PLAN: DOWN GRADE TO TELEMETRY UNIT MONITOR BLOOD PRESSURE
[2020-12-30 08:00] VITALS: BP 121/49
--- NOTE | 2020-12-30 08:10 | NUR ---
NURSE NOTES: Report given to Darren
--- NOTE | 2020-12-30 08:10 | NUR ---
NURSE NOTES: Received report from [employer]. Patient is AAO x4. On Room air. No respiratory distress/discomfort. Kept dry, clean, and comfortable. Will continue plan of care.
[2020-12-30] MEDS: Carvedilol 12.5mg tab ORAL SCH ×2 (08:50→20:59)
[2020-12-30] MEDS: Docusate 100mg cap ORAL SCH ×3 (08:51→17:27)
[2020-12-30] MEDS: Aspirin EC 81mg tab ORAL SCH (08:51)
[2020-12-30] MEDS: Spironolactone 25mg tab ORAL SCH (08:51)
--- NOTE | 2020-12-30 09:16 | Nephrology Progress Note ---
Assessment/Plan Plan #GEORGE on CKD baseline Cr close to 2 #acute on chronic CHF #systolic CHF #pafib #acute on chronic anemia #HTN #DM #HLD - lasix 40 IV daily - maintain cabrera - strict I&Os - monitor weights - imdur 20 BID - hydralazine 10 TID - aldactone 25mg daily - coreg 12.5 BID - monitor BP - monitor mag and phos time spent 65min Subjective ROS Limited/Unobtainable: No Constitutional: Reports: weakness Subjective Cr 2.3 BP stable Renal US: Impression: Negative for hydronephrosis Empty bladder with a Cabrera catheter Bilateral renal cysts. Objective Objective Last 24 Hour Vital Signs Date Time Temp Pulse Resp B/P (MAP) Pulse Ox O2 Delivery O2 Flow Rate FiO2 12/30/20 08:51 121/49 12/30/20 08:50 102 121/49 12/30/20 08:00 99.0 102 20 121/49 (73) 97 12/30/20 05:13 128/56 12/30/20 04:00 100 12/30/20 04:00 98.1 92 20 94/51 (65) 95 12/30/20 04:00 Room Air 12/30/20 00:00 Room Air 12/30/20 00:00 97.7 87 20 112/44 (66) 96 12/30/20 00:00 87 12/29/20 21:56 115/48 12/29/20 21:56 90 115/48 12/29/20 20:00 Room Air 12/29/20 20:00 88 12/29/20 20:00 98.0 90 20 106/56 (73) 96 12/29/20 18:00 94/51 12/29/20 16:00 Room Air 12/29/20 16:00 97.7 92 20 94/51 (65) 95 12/29/20 15:38 93 12/29/20 14:00 103/46 12/29/20 13:00 103/46 12/29/20 12:00 97.3 90 21 102/83 (89) 98 12/29/20 12:00 Room Air 12/29/20 11:46 103 Intake and Output 12/29/20 12/30/20 19:00 07:00 Intake Total 300 ml 310 ml Output Total 1500 ml Balance -1200 ml 310 ml Intake Oral 300 ml 60 ml Blood Product 250 ml Output Urine Total 1500 ml Laboratory Tests 12/29/20 10:41: POC Whole Blood Glucose [Pending] 12/29/20 16:54: POC Whole Blood Glucose [Pending] 12/29/20 20:56: POC Whole Blood Glucose 94 12/30/20 03:15: White Blood Count 7.6, Red Blood Count 2.90L, Hemoglobin 8.3L, Hematocrit 26.3L, Mean Corpuscular Volume 91, Mean Corpuscular Hemoglobin 28.6, Mean Corpuscular Hemoglobin Concent 31.6L, Red Cell Distribution Width 15.8H, Platelet Count 220, Mean Platelet Volume 7.9, Neutrophils (%) (Auto) 72.9, Lymphocytes (%) (Auto) 13.2L, Monocytes (%) (Auto) 8.7, Eosinophils (%) (Auto) 4.7H, Basophils (%) (Auto) 0.6, Prothrombin Time 12.1H, Prothromb Time International Ratio 1.1, Sodium Level 137, Potassium Level 4.2, Chloride Level 103, Carbon Dioxide Level 29, Anion Gap 5, Blood Urea Nitrogen 31H, Creatinine 2.3H, Estimat Glomerular Filtration Rate 20.3, Glucose Level 89, Calcium Level 8.5, Phosphorus Level 3.0, Magnesium Level 1.9 12/30/20 05:03: POC Whole Blood Glucose 85 Height (Feet): 5 Height (Inches): 5.00 Weight (Pounds): 135 Objective General Appearance: no apparent distress Lines, tubes and drains: peripheral HEENT: normocephalic, atraumatic Neck: non-tender, normal alignment Respiratory/Chest: chest wall non-tender, crackles/rales Cardiovascular/Chest: normal peripheral pulses, normal rate Extremities: trace edema Skin Exam: normal pigmentation Neurologic: alert, oriented x 3 Judith Garland M.D. Dec 30, 2020 09:16
--- NOTE | 2020-12-30 10:36 | NUR ---
INSURANCE CLINICALS FAXED TO [employer] [phone]
[2020-12-30 12:00] VITALS: BP 107/67
--- NOTE | 2020-12-30 12:58 | General Progress Note ---
Subjective ROS Limited/Unobtainable: Yes Allergies: Coded Allergies: No Known Allergies (Unverified , 05/01/13) Objective Last 24 Hour Vital Signs Date Time Temp Pulse Resp B/P (MAP) Pulse Ox O2 Delivery O2 Flow Rate FiO2 12/30/20 12:00 76 12/30/20 12:00 98.4 78 18 107/67 (80) 99 12/30/20 12:00 Room Air Room Air 12/30/20 09:35 96 21 12/30/20 09:35 88 16 96 Room Air 21 12/30/20 08:51 121/49 12/30/20 08:50 102 121/49 12/30/20 08:00 Room Air Room Air 12/30/20 08:00 99.0 102 20 121/49 (73) 97 12/30/20 08:00 100 12/30/20 05:13 128/56 12/30/20 04:00 100 12/30/20 04:00 98.1 92 20 94/51 (65) 95 12/30/20 04:00 Room Air 12/30/20 00:00 Room Air 12/30/20 00:00 97.7 87 20 112/44 (66) 96 12/30/20 00:00 87 12/29/20 21:56 115/48 12/29/20 21:56 90 115/48 12/29/20 20:00 Room Air 12/29/20 20:00 88 12/29/20 20:00 98.0 90 20 106/56 (73) 96 12/29/20 18:00 94/51 12/29/20 16:00 Room Air 12/29/20 16:00 97.7 92 20 94/51 (65) 95 12/29/20 15:38 93 12/29/20 14:00 103/46 12/29/20 13:00 103/46 Intake and Output 12/29/20 12/30/20 19:00 07:00 Intake Total 300 ml 310 ml Output Total 1500 ml Balance -1200 ml 310 ml Intake Oral 300 ml 60 ml Blood Product 250 ml Output Urine Total 1500 ml Laboratory Tests 12/29/20 16:54: POC Whole Blood Glucose [Pending] 12/29/20 20:56: POC Whole Blood Glucose 94 12/30/20 03:15: White Blood Count 7.6, Red Blood Count 2.90L, Hemoglobin 8.3L, Hematocrit 26.3L, Mean Corpuscular Volume 91, Mean Corpuscular Hemoglobin 28.6, Mean Corpuscular Hemoglobin Concent 31.6L, Red Cell Distribution Width 15.8H, Platelet Count 220, Mean Platelet Volume 7.9, Neutrophils (%) (Auto) 72.9, Lymphocytes (%) (Auto) 13.2L, Monocytes (%) (Auto) 8.7, Eosinophils (%) (Auto) 4.7H, Basophils (%) (Auto) 0.6, Prothrombin Time 12.1H, Prothromb Time International Ratio 1.1, Sodium Level 137, Potassium Level 4.2, Chloride Level 103, Carbon Dioxide Level 29, Anion Gap 5, Blood Urea Nitrogen 31H, Creatinine 2.3H, Estimat Glomerular Filtration Rate 20.3, Glucose Level 89, Calcium Level 8.5, Phosphorus Level 3.0, Magnesium Level 1.9 12/30/20 05:03: POC Whole Blood Glucose 85 12/30/20 11:37: POC Whole Blood Glucose 123H Height (Feet): 5 Height (Inches): 5.00 Weight (Pounds): 135 General Appearance: no apparent distress EENT: normal ENT inspection Neck: supple Cardiovascular: normal rate Respiratory/Chest: decreased breath sounds Abdomen: normal bowel sounds, non tender, soft Extremities: non-tender Assessment/Plan Problem List: (1) Anemia ICD Codes: D64.9 - Anemia, unspecified SNOMED: 281994753 (2) Pneumonia ICD Codes: J18.9 - Pneumonia SNOMED: 571154172 (3) CHF (congestive heart failure) ICD Codes: I50.9 - Heart failure, unspecified SNOMED: 14665975 (4) Lactic acidosis ICD Codes: E87.2 - Acidosis SNOMED: 25882975 (5) UTI (urinary tract infection) ICD Codes: N39.0 - Urinary tract infection, site not specified SNOMED: 45554467 (6) COVID-19 ICD Codes: U07.1 - COVID-19 SNOMED: 066561495 Assessment/Plan: fu H&H iv iron laxative fu stool ob covid care ppi GI procedures on hold for now Jarvis Coleman MD Dec 30, 2020 12:58
--- NOTE | 2020-12-30 13:40 | NUR ---
NURSE NOTES: Seen by MARYAM Herring and assessed patient. Informed that patient is positive for COVID. Updated patient's status. NNO.
--- NOTE | 2020-12-30 15:02 | Pulmonology Progress Note ---
Subjective ROS Limited/Unobtainable: Yes Interval Events: Hgb better; s/p 1 unit PRBC Constitutional: Reports: no symptoms HEENT: Repors: no symptoms Respiratory: Reports: no symptoms Cardiovascular: Reports: no symptoms Gastrointestinal/Abdominal: Reports: no symptoms Allergies: Coded Allergies: No Known Allergies (Unverified , 05/01/13) Objective Last 24 Hour Vital Signs Date Time Temp Pulse Resp B/P (MAP) Pulse Ox O2 Delivery O2 Flow Rate FiO2 12/30/20 14:00 125/56 12/30/20 13:00 107/67 12/30/20 12:00 76 12/30/20 12:00 98.4 78 18 107/67 (80) 99 12/30/20 12:00 Room Air Room Air 12/30/20 09:35 96 21 12/30/20 09:35 88 16 96 Room Air 12/30/20 08:51 121/49 12/30/20 08:50 102 121/49 12/30/20 08:00 Room Air Room Air 12/30/20 08:00 99.0 102 20 121/49 (73) 97 12/30/20 08:00 100 12/30/20 05:13 128/56 12/30/20 04:00 100 12/30/20 04:00 98.1 92 20 94/51 (65) 95 12/30/20 04:00 Room Air 12/30/20 00:00 Room Air 12/30/20 00:00 97.7 87 20 112/44 (66) 96 12/30/20 00:00 87 12/29/20 21:56 115/48 12/29/20 21:56 90 115/48 12/29/20 20:00 Room Air 12/29/20 20:00 88 12/29/20 20:00 98.0 90 20 106/56 (73) 96 12/29/20 18:00 94/51 12/29/20 16:00 Room Air 12/29/20 16:00 97.7 92 20 94/51 (65) 95 12/29/20 15:38 93 Intake and Output 12/29/20 12/30/20 19:00 07:00 Intake Total 300 ml 310 ml Output Total 1500 ml Balance -1200 ml 310 ml Intake Oral 300 ml 60 ml Blood Product 250 ml Output Urine Total 1500 ml General Appearance: no acute distress HEENT: atraumatic Respiratory: lungs clear Cardiovascular: normal rate Abdomen: soft, non tender Microbiology Date/Time Source Procedure Growth Status 12/27/20 21:04 Nasopharynx Coronavirus COVID-19 PCR (CAM) - Final Complete 12/27/20 20:15 Blood Blood Culture - Preliminary NO GROWTH AFTER 24 HOURS Resulted 12/27/20 20:00 Blood Blood Culture - Preliminary NO GROWTH AFTER 24 HOURS Resulted Laboratory Tests 12/29/20 16:54: POC Whole Blood Glucose [Pending] 12/29/20 20:56: POC Whole Blood Glucose 94 12/30/20 03:15: White Blood Count 7.6, Red Blood Count 2.90L, Hemoglobin 8.3L, Hematocrit 26.3L, Mean Corpuscular Volume 91, Mean Corpuscular Hemoglobin 28.6, Mean Corpuscular Hemoglobin Concent 31.6L, Red Cell Distribution Width 15.8H, Platelet Count 220, Mean Platelet Volume 7.9, Neutrophils (%) (Auto) 72.9, Lymphocytes (%) (Auto) 13.2L, Monocytes (%) (Auto) 8.7, Eosinophils (%) (Auto) 4.7H, Basophils (%) (Auto) 0.6, Prothrombin Time 12.1H, Prothromb Time International Ratio 1.1, Sodium Level 137, Potassium Level 4.2, Chloride Level 103, Carbon Dioxide Level 29, Anion Gap 5, Blood Urea Nitrogen 31H, Creatinine 2.3H, Estimat Glomerular Filtration Rate 20.3, Glucose Level 89, Calcium Level 8.5, Phosphorus Level 3.0, Magnesium Level 1.9 12/30/20 05:03: POC Whole Blood Glucose 85 12/30/20 11:37: POC Whole Blood Glucose 123H Current Medications Medications (Trade) Dose Ordered Sig/Prateek Route PRN Reason Start Time Stop Time Status Last Admin Dose Admin Acetaminophen (Tylenol) 650 mg Q4H PRN ORAL pain 12/27/20 21:45 01/26/21 21:44 12/29/20 06:01 Aspirin (Ecotrin) 81 mg DAILY ORAL 12/28/20 09:00 02/11/21 08:59 12/30/20 08:51 Carvedilol (Coreg) 12.5 mg EVERY 12 HOURS ORAL 12/28/20 09:00 01/27/21 08:59 12/30/20 08:50 Clonidine HCl (Catapres Tab) 0.1 mg Q4H PRN ORAL bp over 160 syst 12/27/20 22:00 03/27/21 21:59 Dextrose (Dextrose 50%) 25 ml Q30M PRN IV Hypoglycemia 12/28/20 02:00 03/28/21 01:59 Dextrose (Dextrose 50%) 50 ml Q30M PRN IV Hypoglycemia 12/28/20 02:00 03/28/21 01:59 Docusate Sodium (Colace) 100 mg TID ORAL 12/28/20 09:00 01/27/21 08:59 12/30/20 13:32 Furosemide (Lasix) 40 mg DAILY IV 12/28/20 09:00 01/27/21 08:59 12/30/20 08:51 Hydralazine HCl (Apresoline) 25 mg Q8HR ORAL 12/29/20 06:00 03/29/21 05:59 12/29/20 21:56 Insulin Aspart (NovoLOG) BEFORE MEALS AND HS SUBQ 12/28/20 06:30 03/28/21 06:29 12/28/20 16:30 Iron Sucrose 100 mg/Sodium Chloride 60 ml @ 240 mls/hr BEDTIME IVPB 12/28/20 21:00 01/01/21 21:14 12/29/20 21:55 Isosorbide Dinitrate (Isordil) 20 mg THREE TIMES A DAY ORAL 12/28/20 09:00 01/27/21 08:59 12/30/20 08:51 Lansoprazole (Prevacid) 30 mg DAILY ORAL 12/31/20 09:00 01/30/21 08:59 Polyethylene Glycol (Miralax) 17 gm BEDTIME ORAL 12/30/20 21:00 01/29/21 20:59 Spironolactone (Aldactone) 25 mg DAILY ORAL 12/28/20 09:00 01/27/21 08:59 12/30/20 08:51 Warfarin Sodium (Coumadin per pharmacy) 1 ea DAILY PRN MISC Per rx protocol 12/28/20 13:00 01/27/21 12:59 Assessment/Plan Assessment/Plan 1. Anemia, likely secondary to #4 -Low iron, and folic acid; on IV iron per GI - GI recs noted - Will order stool OB - consider Epogen? per nephro 2. Hypoxic respiratory failure on arrival -She is now on room air 3. CHF -Seen by cardio 4. GEORGE on CKD -Seen by nephro -We will continue Smith for now to monitor urine output 5. History of paroxysmal atrial fibrillation, on warfarin -We will continue Coumadin 6. History of apical thrombus, elevated D-dimer -Full anticoagulation in place 7. Recent history of COVID-19 -Chest x-ray notable for probable community-acquired pneumonia -May be recovering from COVID-19 infection - COVID-X status per guideline, can be off isolation Will transfer to tele The care for this patient was discussed with my supervising physician. Time spent for this case was approximately 31 minutes. Sean Herring Dec 30, 2020 15:02
[2020-12-30 16:00] VITALS: BP 144/65
--- NOTE | 2020-12-30 16:02 | NUR ---
NURSE NOTES: Talked with MARYAM Herring. He said okay to give coumadin.
[2020-12-30] MEDS ORDERED: Warfarin Sodium 5mg ORAL SCH (17:00)
[2020-12-30] MEDS ORDERED: Docusate 100mg cap ORAL SCH (18:00)
--- NOTE | 2020-12-30 19:17 | NUR ---
NURSE NOTES: Report given to ROSY Glover. Endorsed plan of care.
--- NOTE | 2020-12-30 19:20 | NUR ---
NURSE NOTES: Received patient from ROSY Banks. patient is awake in bed, talking, alert and oriented x4. sinus rhythm on the monitor. currently on room air O2 saturation 97%. cabrera in place and draining well to gravity. bed to lowest position and locked. call light within easy reach. side rails up x2. will continue plan of care.
[2020-12-30 20:00] VITALS: BP 113/47
[2020-12-30] MEDS: Miralax 17gm pkt ORAL SCH (20:57)
[2020-12-30] MEDS: Iron Sucrose 100 MG in NS 55 ML IVPB SCH (20:58)
--- NOTE | 2020-12-30 21:28 | NUR ---
NURSE NOTES: carvedilol and hydralazine held due to SBP <130
--- NOTE | 2020-12-30 22:24 | Cardiology Progress Note ---
Subjective DATE OF SERVICE: Dec 30, 2020 No chest pain; troponin peaked above 0.300; now decreased Now comfortable on room air. Monitor: sinus with few ectopics and BBB Objective Last 24 Hour Vital Signs Date Time Temp Pulse Resp B/P (MAP) Pulse Ox O2 Delivery O2 Flow Rate FiO2 12/30/20 21:27 113/47 12/30/20 20:59 88 113/47 12/30/20 20:00 98.1 88 20 113/47 (69) 97 12/30/20 19:28 100 18 97 Room Air 21 12/30/20 19:28 97 21 12/30/20 19:08 86 12/30/20 17:27 144/65 12/30/20 16:00 89 12/30/20 16:00 98.1 96 20 144/65 (91) 97 12/30/20 16:00 Room Air Room Air 12/30/20 14:00 125/56 12/30/20 13:00 107/67 12/30/20 12:00 76 12/30/20 12:00 98.4 78 18 107/67 (80) 99 12/30/20 12:00 Room Air Room Air 12/30/20 09:35 96 21 12/30/20 09:35 88 16 96 Room Air 12/30/20 08:51 121/49 12/30/20 08:50 102 121/49 12/30/20 08:00 Room Air Room Air 12/30/20 08:00 99.0 102 20 121/49 (73) 97 12/30/20 08:00 100 12/30/20 05:13 128/56 12/30/20 04:00 100 12/30/20 04:00 98.1 92 20 94/51 (65) 95 12/30/20 04:00 Room Air 12/30/20 00:00 Room Air 12/30/20 00:00 97.7 87 20 112/44 (66) 96 12/30/20 00:00 87 ROS: no change from data of 12/27/20 HEENT: normal ENT inspection RHYTHM: NSR, PVCs, other - LBBB CARDIAC: normal rate, regular rhythm, normal S1 and S2, systolic murmur - 2/6 systolic murmur at apex, diastolic murmur - 1/4 diastolic decrescendo ABDOMEN: non tender, soft, hepatomegaly EXTREMITIES: normal range of motion, no calf tenderness, +1 edema Laboratory Tests Test 12/30/20 03:15 12/30/20 05:03 12/30/20 11:37 12/30/20 17:20 White Blood Count 7.6 K/UL (4.8-10.8) Red Blood Count 2.90 M/UL (4.20-5.40) L Hemoglobin 8.3 G/DL (12.0-16.0) L Hematocrit 26.3 % (37.0-47.0) L Mean Corpuscular Volume 91 FL (80-99) Mean Corpuscular Hemoglobin 28.6 PG (27.0-31.0) Mean Corpuscular Hemoglobin Concent 31.6 G/DL (32.0-36.0) L Red Cell Distribution Width 15.8 % (11.6-14.8) H Platelet Count 220 K/UL (150-450) Mean Platelet Volume 7.9 FL (6.5-10.1) Neutrophils (%) (Auto) 72.9 % (45.0-75.0) Lymphocytes (%) (Auto) 13.2 % (20.0-45.0) L Monocytes (%) (Auto) 8.7 % (1.0-10.0) Eosinophils (%) (Auto) 4.7 % (0.0-3.0) H Basophils (%) (Auto) 0.6 % (0.0-2.0) Prothrombin Time 12.1 SEC (9.30-11.50) H Prothromb Time International Ratio 1.1 (0.9-1.1) Sodium Level 137 MMOL/L (136-145) Potassium Level 4.2 MMOL/L (3.5-5.1) Chloride Level 103 MMOL/L (98-107) Carbon Dioxide Level 29 MMOL/L (21-32) Anion Gap 5 mmol/L (5-15) Blood Urea Nitrogen 31 mg/dL (7-18) H Creatinine 2.3 MG/DL (0.55-1.30) H Estimat Glomerular Filtration Rate 20.3 mL/min (>60) Glucose Level 89 MG/DL (74-106) Calcium Level 8.5 MG/DL (8.5-10.1) Phosphorus Level 3.0 MG/DL (2.5-4.9) Magnesium Level 1.9 MG/DL (1.8-2.4) POC Whole Blood Glucose 85 MG/DL (74-106) 123 MG/DL (74-106) H 120 MG/DL (74-106) H Test 12/30/20 17:31 12/30/20 21:14 Stool Occult Blood Pending POC Whole Blood Glucose 108 MG/DL (74-106) H Assessment/Plan Assessment/Plan Non-compliance Acute respiratory failure with hypoxia 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 Diuresis as tolerated by renal parameters; maintenance oral dose tomorrow. Maximize anti failure regimen Full anticoagulation Consider ICD when performance status and compliance better REMAINS high risk. Everett Iqbal MD Dec 30, 2020 22:24
[2020-12-31] VITALS: BP 123/46
--- NOTE | 2020-12-31 01:43 | NUR ---
NURSE NOTES: patient is sleeping well without any acute distress noted.
[2020-12-31 04:00] VITALS: BP 126/68
--- NOTE | 2020-12-31 05:00 | NUR ---
NURSE NOTES: Assisted patient with bed bath. patient independently brushed her teeth. vital signs stable. blood glucose 118, no insulin given.
[2020-12-31 05:14] LABS: BASOPHILS % (AUTO) 0.8 % (0.0-2.0); EOSINOPHILS % (AUTO) 5.2 % (0.0-3.0); HEMATOCRIT 25.9 % (37.0-47.0); HEMOGLOBIN 8.2 G/DL (12.0-16.0); LYMPHOCYTES % (AUTO) 16.5 % (20.0-45.0); MEAN CORPUSCULAR VOLUME 91 FL (80-99); NEUTROPHILS % (AUTO) 65.6 % (45.0-75.0); PLATELET COUNT 222 K/UL (150-450); RED BLOOD COUNT 2.86 M/UL (4.20-5.40); RED CELL DISTRIBUTION WIDTH 15.9 % (11.6-14.8); WHITE BLOOD COUNT 8.7 K/UL (4.8-10.8)
[2020-12-31] MEDS: HydrALAZINE 25mg tab ORAL SCH ×3 (05:16→22:00)
[2020-12-31] MEDS: NovoLOG Insulin Flexpen SUBQ SCH ×4 (05:17→21:00)
[2020-12-31 05:18] LABS: INR 1.1 (0.9-1.1)
[2020-12-31 05:41] LABS: CREATININE 2.2 MG/DL (0.55-1.30); POTASSIUM 4.2 MMOL/L (3.5-5.1)
[2020-12-31 08:00] VITALS: BP 126/68
--- NOTE | 2020-12-31 08:46 | Nephrology Progress Note ---
Assessment/Plan Plan #GEORGE on CKD baseline Cr close to 2 #acute on chronic CHF #systolic CHF #pafib #acute on chronic anemia #HTN #DM #HLD - lasix 40 IV daily - dc cabrera - strict I&Os - monitor weights - imdur 20 BID - hydralazine 10 TID - aldactone 25mg daily - coreg 12.5 BID - monitor BP - monitor mag and phos time spent 65min Subjective ROS Limited/Unobtainable: No Constitutional: Reports: weakness HEENT: Denies: no symptoms, eye pain, blurred vision, tearing, double vision, ear pain, ear discharge, nose pain, nose congestion, throat pain, throat swelling, mouth pain, mouth swelling, other Genitourinary: Denies: no symptoms, burning, discharge, frequency, flank pain, hematuria, incontinence, pain, urgency, other Neurologic/Psychiatric: Denies: no symptoms, anxiety, depressed, emotional problems, headache, numbness, paresthesia, pre-existing deficit, seizure, tingling, tremors, weakness, other Subjective Cr 2.3 BP stable Renal US: Impression: Negative for hydronephrosis Empty bladder with a Cabrera catheter Bilateral renal cysts. Objective Objective Last 24 Hour Vital Signs Date Time Temp Pulse Resp B/P (MAP) Pulse Ox O2 Delivery O2 Flow Rate FiO2 12/31/20 08:00 Room Air Room Air 12/31/20 08:00 79 12/31/20 08:00 97.9 97 21 126/68 (87) 97 12/31/20 07:20 102 16 98 Room Air 12/31/20 05:16 126/60 12/31/20 04:00 79 12/31/20 04:00 97.9 97 21 126/68 (87) 97 12/31/20 04:00 Room Air Room Air 12/31/20 00:00 97.9 83 21 123/46 (71) 96 12/31/20 00:00 Room Air Room Air 12/30/20 23:48 84 12/30/20 21:27 113/47 12/30/20 20:59 88 113/47 12/30/20 20:00 Room Air Room Air 12/30/20 20:00 98.1 88 20 113/47 (69) 97 12/30/20 19:28 100 18 97 Room Air 12/30/20 19:28 97 21 12/30/20 19:08 86 12/30/20 17:27 144/65 12/30/20 16:00 89 12/30/20 16:00 98.1 96 20 144/65 (91) 97 12/30/20 16:00 Room Air Room Air 12/30/20 14:00 125/56 12/30/20 13:00 107/67 12/30/20 12:00 76 12/30/20 12:00 98.4 78 18 107/67 (80) 99 12/30/20 12:00 Room Air Room Air 12/30/20 09:35 96 21 12/30/20 09:35 88 16 96 Room Air 21 12/30/20 08:51 121/49 12/30/20 08:50 102 121/49 Intake and Output 12/30/20 12/31/20 19:00 07:00 Intake Total 400 ml 400 ml Output Total 1300 ml 900 ml Balance -900 ml -500 ml Intake Oral 400 ml 400 ml Output Urine Total 1300 ml 900 ml Laboratory Tests 12/30/20 11:37: POC Whole Blood Glucose 123H 12/30/20 17:20: POC Whole Blood Glucose 120H 12/30/20 17:31: Stool Occult Blood [Pending] 12/30/20 21:14: POC Whole Blood Glucose 108H 12/31/20 03:20: White Blood Count 8.7, Red Blood Count 2.86L, Hemoglobin 8.2L, Hematocrit 25.9L, Mean Corpuscular Volume 91, Mean Corpuscular Hemoglobin 28.6, Mean Corpuscular Hemoglobin Concent 31.6L, Red Cell Distribution Width 15.9H, Platelet Count 222, Mean Platelet Volume 8.4, Neutrophils (%) (Auto) 65.6, Lymphocytes (%) (Auto) 16.5L, Monocytes (%) (Auto) 12.0H, Eosinophils (%) (Auto) 5.2H, Basophils (%) (Auto) 0.8, Prothrombin Time 12.3H, Prothromb Time International Ratio 1.1, Sodium Level 139, Potassium Level 4.2, Chloride Level 105, Carbon Dioxide Level 27, Anion Gap 7, Blood Urea Nitrogen 28H, Creatinine 2.2H, Estimat Glomerular Filtration Rate 21.4, Glucose Level 94, Calcium Level 9.0, Magnesium Level 2.1 12/31/20 05:14: POC Whole Blood Glucose 118H Height (Feet): 5 Height (Inches): 5.00 Weight (Pounds): 135 Objective General Appearance: no apparent distress Lines, tubes and drains: peripheral HEENT: normocephalic, atraumatic Neck: non-tender, normal alignment Respiratory/Chest: chest wall non-tender, crackles/rales Cardiovascular/Chest: normal peripheral pulses, normal rate Extremities: trace edema Skin Exam: normal pigmentation Neurologic: alert, oriented x 3 Judith Garland M.D. Dec 31, 2020 08:46
[2020-12-31] MEDS: Aspirin EC 81mg tab ORAL SCH (09:10)
[2020-12-31] MEDS: Spironolactone 25mg tab ORAL SCH (09:12)
[2020-12-31] MEDS: Lansoprazole 15mg cap ORAL SCH (09:13)
[2020-12-31] MEDS: Docusate 100mg cap ORAL SCH ×3 (09:13→17:27)
[2020-12-31] MEDS: Carvedilol 12.5mg tab ORAL SCH ×2 (09:14→21:18)
--- NOTE | 2020-12-31 10:02 | Pulmonology Progress Note ---
Subjective ROS Limited/Unobtainable: No Interval Events: none major reported per nursing Constitutional: Reports: no symptoms HEENT: Repors: no symptoms Respiratory: Reports: no symptoms Cardiovascular: Reports: no symptoms Gastrointestinal/Abdominal: Reports: no symptoms Allergies: Coded Allergies: No Known Allergies (Unverified , 05/01/13) Objective Last 24 Hour Vital Signs Date Time Temp Pulse Resp B/P (MAP) Pulse Ox O2 Delivery O2 Flow Rate FiO2 12/31/20 09:14 98 126/56 12/31/20 09:12 126/56 12/31/20 08:00 Room Air Room Air 12/31/20 08:00 79 12/31/20 08:00 97.9 97 21 126/68 (87) 97 12/31/20 07:20 98 21 12/31/20 07:20 102 16 98 Room Air 12/31/20 05:16 126/60 12/31/20 04:00 79 12/31/20 04:00 97.9 97 21 126/68 (87) 97 12/31/20 04:00 Room Air Room Air 12/31/20 00:00 97.9 83 21 123/46 (71) 96 12/31/20 00:00 Room Air Room Air 12/30/20 23:48 84 12/30/20 21:27 113/47 12/30/20 20:59 88 113/47 12/30/20 20:00 Room Air Room Air 12/30/20 20:00 98.1 88 20 113/47 (69) 97 12/30/20 19:28 100 18 97 Room Air 12/30/20 19:28 97 21 12/30/20 19:08 86 12/30/20 17:27 144/65 12/30/20 16:00 89 12/30/20 16:00 98.1 96 20 144/65 (91) 97 12/30/20 16:00 Room Air Room Air 12/30/20 14:00 125/56 12/30/20 13:00 107/67 12/30/20 12:00 76 12/30/20 12:00 98.4 78 18 107/67 (80) 99 12/30/20 12:00 Room Air Room Air Intake and Output 12/30/20 12/31/20 19:00 07:00 Intake Total 400 ml 400 ml Output Total 1300 ml 900 ml Balance -900 ml -500 ml Intake Oral 400 ml 400 ml Output Urine Total 1300 ml 900 ml General Appearance: no acute distress HEENT: atraumatic Respiratory: lungs clear Cardiovascular: normal rate Abdomen: soft, non tender Laboratory Tests 12/30/20 11:37: POC Whole Blood Glucose 123H 12/30/20 17:20: POC Whole Blood Glucose 120H 12/30/20 17:31: Stool Occult Blood [Pending] 12/30/20 21:14: POC Whole Blood Glucose 108H 12/31/20 03:20: White Blood Count 8.7, Red Blood Count 2.86L, Hemoglobin 8.2L, Hematocrit 25.9L, Mean Corpuscular Volume 91, Mean Corpuscular Hemoglobin 28.6, Mean Corpuscular Hemoglobin Concent 31.6L, Red Cell Distribution Width 15.9H, Platelet Count 222, Mean Platelet Volume 8.4, Neutrophils (%) (Auto) 65.6, Lymphocytes (%) (Auto) 16.5L, Monocytes (%) (Auto) 12.0H, Eosinophils (%) (Auto) 5.2H, Basophils (%) ( Auto) 0.8, Prothrombin Time 12.3H, Prothromb Time International Ratio 1.1, Sodium Level 139, Potassium Level 4.2, Chloride Level 105, Carbon Dioxide Level 27, Anion Gap 7, Blood Urea Nitrogen 28H, Creatinine 2.2H, Estimat Glomerular Filtration Rate 21.4, Glucose Level 94, Calcium Level 9.0, Magnesium Level 2.1 12/31/20 05:14: POC Whole Blood Glucose 118H Current Medications Medications (Trade) Dose Ordered Sig/Prateek Route PRN Reason Start Time Stop Time Status Last Admin Dose Admin Acetaminophen (Tylenol) 650 mg Q4H PRN ORAL pain 12/27/20 21:45 01/26/21 21:44 12/29/20 06:01 Aspirin (Ecotrin) 81 mg DAILY ORAL 12/28/20 09:00 02/11/21 08:59 12/31/20 09:10 Carvedilol (Coreg) 12.5 mg EVERY 12 HOURS ORAL 12/28/20 09:00 01/27/21 08:59 12/31/20 09:14 Clonidine HCl (Catapres Tab) 0.1 mg Q4H PRN ORAL bp over 160 syst 1/31/21 22:00 03/27/21 21:59 Dextrose (Dextrose 50%) 25 ml Q30M PRN IV Hypoglycemia 12/28/20 02:00 03/28/21 01:59 Dextrose (Dextrose 50%) 50 ml Q30M PRN IV Hypoglycemia 12/28/20 02:00 03/28/21 01:59 Docusate Sodium (Colace) 100 mg TID ORAL 12/28/20 09:00 01/27/21 08:59 12/31/20 09:13 Furosemide (Lasix) 40 mg DAILY IV 12/28/20 09:00 01/27/21 08:59 12/31/20 09:13 Hydralazine HCl (Apresoline) 25 mg Q8HR ORAL 12/29/20 06:00 03/29/21 05:59 12/29/20 21:56 Insulin Aspart (NovoLOG) BEFORE MEALS AND HS SUBQ 12/28/20 06:30 03/28/21 06:29 12/28/20 16:30 Iron Sucrose 100 mg/Sodium Chloride 60 ml @ 240 mls/hr BEDTIME IVPB 12/28/20 21:00 01/01/21 21:14 12/30/20 20:58 Isosorbide Dinitrate (Isordil) 20 mg THREE TIMES A DAY ORAL 12/28/20 09:00 01/27/21 08:59 12/31/20 09:12 Lansoprazole (Prevacid) 30 mg DAILY ORAL 12/31/20 09:00 01/30/21 08:59 12/31/20 09:13 Polyethylene Glycol (Miralax) 17 gm BEDTIME ORAL 12/30/20 21:00 01/29/21 20:59 12/30/20 20:57 Spironolactone (Aldactone) 25 mg DAILY ORAL 12/28/20 09:00 01/27/21 08:59 12/31/20 09:12 Warfarin Sodium (Coumadin per pharmacy) 1 ea DAILY PRN MISC Per rx protocol 12/28/20 13:00 01/27/21 12:59 Warfarin Sodium (Coumadin) 5 mg COUMADIN ORAL 12/31/20 17:00 12/31/20 19:00 Assessment/Plan Assessment/Plan 1. Anemia, likely secondary to #4 -Low iron, and folic acid; on IV iron per GI - GI recs noted - Stool OB pending - consider Epogen? per nephro 2. Hypoxic respiratory failure on arrival -She is now on room air 3. CHF -Seen by cardio 4. GEORGE on CKD -Seen by nephro -now off Smith; continue I&O 5. History of paroxysmal atrial fibrillation, on warfarin -We will continue Coumadin 6. History of apical thrombus, elevated D-dimer -Full anticoagulation in place 7. Recent history of COVID-19 -Chest x-ray notable for probable community-acquired pneumonia -May be recovering from COVID-19 infection - COVID-X status per guideline, can be off isolation Will transfer to tele and dc tomorrow if stable The care for this patient was discussed with my supervising physician. Time spent for this case was approximately 31 minutes. Sean Herring Dec 31, 2020 10:02
--- NOTE | 2020-12-31 10:38 | NUR ---
CASE MANAGEMENT:REVIEW 12/31/20 SI: COVID PNA. NSTEMI. ANEMIA. CHF 97.9 102 21 126/56 97% ON RA H/H-8.2/25.9 BUN+28 CR+2.2 IS: COUMADIN 5MG PO HYDRALAZINE PO Q8HRS IV VENOFER QHS ALDACTONE PO QD IV LASIX QD ISORDIL PO TID COREG PO Q12 ASA PO QD : STEP DOWN UNIT DCP: FROM HOME PLAN: DOWN GRADE TO TELEMETRY UNIT MONITOR BLOOD PRESSURE
[2020-12-31 12:00] VITALS: BP 126/68
--- NOTE | 2020-12-31 12:53 | General Progress Note ---
Subjective ROS Limited/Unobtainable: No Allergies: Coded Allergies: No Known Allergies (Unverified , 05/01/13) Objective Last 24 Hour Vital Signs Date Time Temp Pulse Resp B/P (MAP) Pulse Ox O2 Delivery O2 Flow Rate FiO2 12/31/20 12:00 Room Air Room Air 12/31/20 12:00 79 12/31/20 12:00 97.9 97 21 126/68 (87) 97 12/31/20 09:14 98 126/56 12/31/20 09:12 126/56 12/31/20 08:00 Room Air Room Air 12/31/20 08:00 79 12/31/20 08:00 97.9 97 21 126/68 (87) 97 12/31/20 07:20 98 21 12/31/20 07:20 102 16 98 Room Air 12/31/20 05:16 126/60 12/31/20 04:00 79 12/31/20 04:00 97.9 97 21 126/68 (87) 97 12/31/20 04:00 Room Air Room Air 12/31/20 00:00 97.9 83 21 123/46 (71) 96 12/31/20 00:00 Room Air Room Air 12/30/20 23:48 84 12/30/20 21:27 113/47 12/30/20 20:59 88 113/47 12/30/20 20:00 Room Air Room Air 12/30/20 20:00 98.1 88 20 113/47 (69) 97 12/30/20 19:28 100 18 97 Room Air 12/30/20 19:28 97 21 12/30/20 19:08 86 12/30/20 17:27 144/65 12/30/20 16:00 89 12/30/20 16:00 98.1 96 20 144/65 (91) 97 12/30/20 16:00 Room Air Room Air 12/30/20 14:00 125/56 12/30/20 13:00 107/67 Intake and Output 12/30/20 12/31/20 19:00 07:00 Intake Total 400 ml 400 ml Output Total 1300 ml 900 ml Balance -900 ml -500 ml Intake Oral 400 ml 400 ml Output Urine Total 1300 ml 900 ml Laboratory Tests 12/30/20 17:20: POC Whole Blood Glucose 120H 12/30/20 17:31: Stool Occult Blood Negative 12/30/20 21:14: POC Whole Blood Glucose 108H 12/31/20 03:20: White Blood Count 8.7, Red Blood Count 2.86L, Hemoglobin 8.2L, Hematocrit 25.9L, Mean Corpuscular Volume 91, Mean Corpuscular Hemoglobin 28.6, Mean Corpuscular Hemoglobin Concent 31.6L, Red Cell Distribution Width 15.9H, Platelet Count 222, Mean Platelet Volume 8.4, Neutrophils (%) (Auto) 65.6, Lymphocytes (%) (Auto) 16.5L, Monocytes (%) (Auto) 12.0H, Eosinophils (%) (Auto) 5.2H, Basophils (%) (Auto) 0.8, Prothrombin Time 12.3H, Prothromb Time International Ratio 1.1, Sodium Level 139, Potassium Level 4.2, Chloride Level 105, Carbon Dioxide Level 27, Anion Gap 7, Blood Urea Nitrogen 28H, Creatinine 2.2H, Estimat Glomerular Filtration Rate 21.4, Glucose Level 94, Calcium Level 9.0, Magnesium Level 2.1 12/31/20 05:14: POC Whole Blood Glucose 118H 12/31/20 12:46: POC Whole Blood Glucose 206H Height (Feet): 5 Height (Inches): 5.00 Weight (Pounds): 135 General Appearance: no apparent distress EENT: normal ENT inspection Neck: supple Cardiovascular: normal rate Respiratory/Chest: decreased breath sounds Abdomen: normal bowel sounds, non tender, soft Extremities: non-tender Assessment/Plan Problem List: (1) Anemia ICD Codes: D64.9 - Anemia, unspecified SNOMED: 246968158 (2) Pneumonia ICD Codes: J18.9 - Pneumonia SNOMED: 062545398 (3) CHF (congestive heart failure) ICD Codes: I50.9 - Heart failure, unspecified SNOMED: 38914844 (4) Lactic acidosis ICD Codes: E87.2 - Acidosis SNOMED: 70534893 (5) UTI (urinary tract infection) ICD Codes: N39.0 - Urinary tract infection, site not specified SNOMED: 33106332 (6) COVID-19 ICD Codes: U07.1 - COVID-19 SNOMED: 416564296 Assessment/Plan: fu H&H iv iron laxative fu stool ob>>>neg covid care ppi GI procedures on hold for now Jarvis Coleman MD Dec 31, 2020 12:53
[2020-12-31] MEDS ORDERED: NS 275ml ONE (13:55)
--- NOTE | 2020-12-31 14:59 | NUR ---
INSURANCE CLINICALS/REVIEW FAXED TO [employer] [phone] [facility] [place] [phone]
[2020-12-31 16:00] VITALS: BP 126/68
[2020-12-31] MEDS ORDERED: Warfarin Sodium 5mg ORAL SCH (17:00)
--- NOTE | 2020-12-31 19:08 | NUR ---
NURSE NOTES: Patient stable,eating dinner,no problem,reminded to save all urine and note oral intake monitor I/O
--- NOTE | 2020-12-31 19:35 | NUR ---
NURSE NOTES: Report to RN Omaira patient conversant,no complaints ,no respiratory distress
--- NOTE | 2020-12-31 19:36 | NUR ---
NURSE NOTES: Received patient from [facility] under the care of Dr. Espinosa for respiratory failure and dyspnea. Patient noted with NKA and full code status. Patient is positive for Covid-19. Patient is alert and oriented x4 able to communicate needs with clear speech in K[place]. Tolerating room air well, with no acute distress noted. Denies pain at this time. Will continue to monitor.
[2020-12-31 20:00] VITALS: BP 137/71
--- NOTE | 2020-12-31 20:50 | NUR ---
NURSE NOTES: Patient verbalized wanting to go home as she needed to do something important at home. Explained to patient that she is Covid (+) and explained risks and consequences of leaving AMA. Patient verbalized understanding and expressed wanting to speak with the MD in the morning.
[2020-12-31] MEDS: Iron Sucrose 100 MG in NS 55 ML IVPB SCH (21:00)
[2020-12-31] MEDS: Miralax 17gm pkt ORAL SCH (21:18)
[2021-01-01] VITALS: BP 129/72
--- NOTE | 2021-01-01 00:15 | NUR ---
NURSE NOTES: Patient opened the door and asked for the assistance. Duly assisted and door kept closed. Patient noted dressed in own street clothes ready to leave. Patient reoriented to time and she responded with "I thought it was morning already" in Bengali. Patient agreed to go back to bed and wait until morning as discussed earlier.
[2021-01-01 04:00] VITALS: BP 126/68
--- NOTE | 2021-01-01 04:00 | NUR ---
NURSE NOTES: Patient c/o of increased labor of breathing. Consulted with RT and placed patient in BiPAP (15/4 30%). Tolerating settings well. Will continue to monitor.
[2021-01-01 04:43] LABS: BASOPHILS % (AUTO) 0.7 % (0.0-2.0); EOSINOPHILS % (AUTO) 2.1 % (0.0-3.0); HEMATOCRIT 27.4 % (37.0-47.0); HEMOGLOBIN 8.8 G/DL (12.0-16.0); LYMPHOCYTES % (AUTO) 19.6 % (20.0-45.0); MEAN CORPUSCULAR VOLUME 89 FL (80-99); NEUTROPHILS % (AUTO) 67.6 % (45.0-75.0); PLATELET COUNT 244 K/UL (150-450); RED BLOOD COUNT 3.07 M/UL (4.20-5.40); RED CELL DISTRIBUTION WIDTH 15.5 % (11.6-14.8); WHITE BLOOD COUNT 12.7 K/UL (4.8-10.8)
[2021-01-01 04:44] LABS: INR 1.1 (0.9-1.1)
[2021-01-01 05:11] LABS: CALCIUM 8.9 MG/DL (8.5-10.1); CREATININE 2.2 MG/DL (0.55-1.30); PHOSPHORUS 3.4 MG/DL (2.5-4.9); POTASSIUM 4.7 MMOL/L (3.5-5.1)
[2021-01-01] MEDS: HydrALAZINE 25mg tab ORAL SCH ×2 (05:41→14:28)
[2021-01-01] MEDS: NovoLOG Insulin Flexpen SUBQ SCH ×2 (06:02→12:14)
--- NOTE | 2021-01-01 07:33 | NUR ---
NURSE HAND-OFF REPORT: Important Events on Shift: Patient verbalized wanting to go home. Patient Status: Stable Diet: CCHO Pending Orders: Pending Results/Labs: Pending MD notification: Latest Vital Signs: Temperature 97.9 , Pulse 97 , B/P 147 /78 , Respiratory Rate 21 , O2 SAT 98 , Bi-pap, O2 Flow Rate 2.0 . Vital Sign Comment: WNL EKG Rhythm: SR with BBB Rhythm change?: N MD Notified?: Hussain Espinosa MD Response: Latest Vaca Fall Score: 30 Fall Risk: Medium Risk Safety Measures: Call light Within Reach, Bed Alarm Zone 1, Side Rails Side Rails x1, Bed position Low and Locked. Fall Precautions: Yellow Socks Patient Fall Education Report given to [facility].
[2021-01-01 07:51] VITALS: BP 127/65
[2021-01-01] MEDS: Lansoprazole 15mg cap ORAL SCH (08:06)
[2021-01-01] MEDS: Docusate 100mg cap ORAL SCH ×2 (08:06→12:11)
[2021-01-01] MEDS: Spironolactone 25mg tab ORAL SCH (08:06)
[2021-01-01] MEDS: Carvedilol 12.5mg tab ORAL SCH (08:08)
[2021-01-01] MEDS: Aspirin EC 81mg tab ORAL SCH (08:08)
[2021-01-01] MEDS ORDERED: Iron Sucrose 100 MG in NS 55 ML IVPB SCH (09:00)
--- NOTE | 2021-01-01 09:55 | Nephrology Progress Note ---
Assessment/Plan Plan #GEORGE on CKD baseline Cr close to 2 #acute on chronic CHF #systolic CHF #pafib #acute on chronic anemia #HTN #DM #HLD - lasix 40 IV daily - dc cabrera - strict I&Os - monitor weights - imdur 20 BID - hydralazine 10 TID - aldactone 25mg daily - coreg 12.5 BID - monitor BP - monitor mag and phos time spent 65min Subjective Subjective Cr 2.3 BP stable Renal US: Impression: Negative for hydronephrosis Empty bladder with a Cabrera catheter Bilateral renal cysts. Objective Objective Last 24 Hour Vital Signs Date Time Temp Pulse Resp B/P (MAP) Pulse Ox O2 Delivery O2 Flow Rate FiO2 01/01/21 09:00 Nasal Cannula 2.0 Nasal Cannula 2.0 01/01/21 08:08 95 127/65 01/01/21 08:06 127/65 01/01/21 07:51 98.1 95 23 127/65 (85) 96 01/01/21 07:45 90 01/01/21 05:41 147/78 01/01/21 04:00 Room Air Room Air 01/01/21 04:00 97.9 97 21 126/68 (87) 97 01/01/21 04:00 98 Bi-Pap 30 01/01/21 04:00 97 01/01/21 00:00 Room Air Room Air 01/01/21 00:00 98.4 98 21 129/72 (91) 97 12/31/20 22:00 137/71 12/31/20 21:18 109 137/71 12/31/20 20:00 98.1 109 21 137/71 (93) 97 12/31/20 20:00 90 12/31/20 20:00 Room Air Room Air 12/31/20 19:13 97 21 12/31/20 19:13 100 18 97 Room Air 21 12/31/20 17:27 126/68 12/31/20 16:00 Room Air Room Air 12/31/20 16:00 79 12/31/20 16:00 97.9 97 21 126/68 (87) 97 12/31/20 13:34 116/61 12/31/20 13:00 118/61 12/31/20 12:00 Room Air Room Air 12/31/20 12:00 79 12/31/20 12:00 97.9 97 21 126/68 (87) 97 Intake and Output 12/31/20 01/01/21 19:00 07:00 Intake Total 550 ml Output Total 200 ml 400 ml Balance -200 ml 150 ml Intake Oral 550 ml Output Urine Total 200 ml 400 ml Laboratory Tests 12/31/20 12:46: POC Whole Blood Glucose 206H 12/31/20 17:13: POC Whole Blood Glucose 116H 12/31/20 21:27: POC Whole Blood Glucose 134H 01/01/21 03:40: White Blood Count 12.7H, Red Blood Count 3.07L, Hemoglobin 8.8L, Hematocrit 27.4L, Mean Corpuscular Volume 89, Mean Corpuscular Hemoglobin 28.7, Mean Corpuscular Hemoglobin Concent 32.1, Red Cell Distribution Width 15.5H, Platelet Count 244, Mean Platelet Volume 9.1, Neutrophils (%) (Auto) 67.6, Lymphocytes (%) (Auto) 19.6L, Monocytes (%) (Auto) 10.0, Eosinophils (%) (Auto) 2.1, Basophi ls (%) (Auto) 0.7, Prothrombin Time 12.1H, Prothromb Time International Ratio 1.1, Sodium Level 135L, Potassium Level 4.7, Chloride Level 102, Carbon Dioxide Level 25, Anion Gap 9, Blood Urea Nitrogen 29H, Creatinine 2.2H, Estimat Glomerular Filtration Rate 21.4, Glucose Level 144H, Calcium Level 8.9, Phosphorus Level 3.4, Magnesium Level 2.2 01/01/21 05:59: POC Whole Blood Glucose [Pending] Height (Feet): 5 Height (Inches): 5.00 Weight (Pounds): 135 Objective General Appearance: no apparent distress Lines, tubes and drains: peripheral HEENT: normocephalic, atraumatic Neck: non-tender, normal alignment Respiratory/Chest: chest wall non-tender, crackles/rales Cardiovascular/Chest: normal peripheral pulses, normal rate Extremities: trace edema Skin Exam: normal pigmentation Neurologic: alert, oriented x 3 Judith Garland M.D. Jan 01, 2021 09:55
[2021-01-01 11:49] VITALS: BP 140/54
--- NOTE | 2021-01-01 12:24 | NUR ---
CASE MANAGEMENT:REVIEW 01/01/21 SI: COVID PNA. NSTEMI. ANEMIA. CHF 97.9 84 23 140/54 100% ON 2L/NC WBC+12.7 H/H-8.8/27.4 BUN+29 CR+2.2 IS: COUMADIN 5MG PO HYDRALAZINE PO Q8HRS IV VENOFER QHS ALDACTONE PO QD IV LASIX QD ISORDIL PO TID COREG PO Q12 ASA PO QD : STEP DOWN UNIT DCP: FROM HOME PLAN: DOWN GRADE TO TELEMETRY UNIT MONITOR BLOOD PRESSURE
--- NOTE | 2021-01-01 12:44 | General Progress Note ---
Subjective ROS Limited/Unobtainable: No Allergies: Coded Allergies: No Known Allergies (Unverified , 05/01/13) Objective Last 24 Hour Vital Signs Date Time Temp Pulse Resp B/P (MAP) Pulse Ox O2 Delivery O2 Flow Rate FiO2 01/01/21 12:11 140/54 01/01/21 12:00 Nasal Cannula 2.0 Nasal Cannula 2.0 01/01/21 11:49 97.9 84 23 140/54 (82) 100 01/01/21 09:00 Nasal Cannula 2.0 Nasal Cannula 2.0 01/01/21 08:08 95 127/65 01/01/21 08:06 127/65 01/01/21 07:51 98.1 95 23 127/65 (85) 96 01/01/21 07:45 90 01/01/21 07:00 95 18 96 Nasal Cannula 2.0 28 01/01/21 05:41 147/78 01/01/21 04:00 Room Air Room Air 01/01/21 04:00 97.9 97 21 126/68 (87) 97 01/01/21 04:00 98 Bi-Pap 30 01/01/21 04:00 97 01/01/21 00:00 Room Air Room Air 01/01/21 00:00 98.4 98 21 129/72 (91) 97 12/31/20 22:00 137/71 12/31/20 21:18 109 137/71 12/31/20 20:00 98.1 109 21 137/71 (93) 97 12/31/20 20:00 90 12/31/20 20:00 Room Air Room Air 12/31/20 19:13 97 21 12/31/20 19:13 100 18 97 Room Air 21 12/31/20 17:27 126/68 12/31/20 16:00 Room Air Room Air 12/31/20 16:00 79 12/31/20 16:00 97.9 97 21 126/68 (87) 97 12/31/20 13:34 116/61 12/31/20 13:00 118/61 Intake and Output 12/31/20 01/01/21 19:00 07:00 Intake Total 550 ml Output Total 200 ml 400 ml Balance -200 ml 150 ml Intake Oral 550 ml Output Urine Total 200 ml 400 ml Laboratory Tests 12/31/20 12:46: POC Whole Blood Glucose 206H 12/31/20 17:13: POC Whole Blood Glucose 116H 12/31/20 21:27: POC Whole Blood Glucose 134H 01/01/21 03:40: White Blood Count 12.7H, Red Blood Count 3.07L, Hemoglobin 8.8L, Hematocrit 27.4L, Mean Corpuscular Volume 89, Mean Corpuscular Hemoglobin 28.7, Mean Corpuscular Hemoglobin Concent 32.1, Red Cell Distribution Width 15.5H, Platelet Count 244, Mean Platelet Volume 9.1, Neutrophils (%) (Auto) 67.6, Lymphocytes (%) (Auto) 19.6L, Monocytes (%) (Auto) 10.0, Eosinophils (%) (Auto) 2.1, Basophils (%) (Auto) 0.7, Prothrombin Time 12.1H, Prothromb Time International R atio 1.1, Sodium Level 135L, Potassium Level 4.7, Chloride Level 102, Carbon Dioxide Level 25, Anion Gap 9, Blood Urea Nitrogen 29H, Creatinine 2.2H, Estimat Glomerular Filtration Rate 21.4, Glucose Level 144H, Calcium Level 8.9, Phosphorus Level 3.4, Magnesium Level 2.2 01/01/21 05:59: POC Whole Blood Glucose [Pending] 01/01/21 11:45: POC Whole Blood Glucose 145H Height (Feet): 5 Height (Inches): 5.00 Weight (Pounds): 135 General Appearance: no apparent distress EENT: PERRL/EOMI Neck: supple Cardiovascular: normal rate Respiratory/Chest: decreased breath sounds Abdomen: hypoactive bowel sounds Extremities: non-tender Assessment/Plan Problem List: (1) Anemia ICD Codes: D64.9 - Anemia, unspecified SNOMED: 175380680 (2) Pneumonia ICD Codes: J18.9 - Pneumonia SNOMED: 933493813 (3) CHF (congestive heart failure) ICD Codes: I50.9 - Heart failure, unspecified SNOMED: 54515974 (4) Lactic acidosis ICD Codes: E87.2 - Acidosis SNOMED: 38357581 (5) UTI (urinary tract infection) ICD Codes: N39.0 - Urinary tract infection, site not specified SNOMED: 15604965 (6) COVID-19 ICD Codes: U07.1 - COVID-19 SNOMED: 400341033 Assessment/Plan: fu H&H iv iron laxative fu stool ob>>>neg covid care ppi GI procedures on hold for now Jravis Coleman MD Jan 01, 2021 12:44
--- NOTE | 2021-01-01 13:33 | NUR ---
NURSE NOTES: patient ambulated in the room and oxygen level was checked on RA.patient did good, with no shortness of breath, and oxygen level is on 95-98% on RA.
--- NOTE | 2021-01-01 13:52 | Pulmonology Progress Note ---
Subjective ROS Limited/Unobtainable: No Interval Events: none major reported per nursing Constitutional: Reports: no symptoms HEENT: Repors: no symptoms Respiratory: Reports: no symptoms Cardiovascular: Reports: no symptoms Gastrointestinal/Abdominal: Reports: no symptoms Allergies: Coded Allergies: No Known Allergies (Unverified , 05/01/13) Objective Last 24 Hour Vital Signs Date Time Temp Pulse Resp B/P (MAP) Pulse Ox O2 Delivery O2 Flow Rate FiO2 01/01/21 12:11 140/54 01/01/21 12:00 Nasal Cannula 2.0 Nasal Cannula 2.0 01/01/21 11:49 97.9 84 23 140/54 (82) 100 01/01/21 11:45 95 01/01/21 09:00 Nasal Cannula 2.0 Nasal Cannula 2.0 01/01/21 08:08 95 127/65 01/01/21 08:06 127/65 01/01/21 07:51 98.1 95 23 127/65 (85) 96 01/01/21 07:45 90 01/01/21 07:00 95 18 96 Nasal Cannula 2.0 28 01/01/21 05:41 147/78 01/01/21 04:00 Room Air Room Air 01/01/21 04:00 97.9 97 21 126/68 (87) 97 01/01/21 04:00 98 Bi-Pap 30 01/01/21 04:00 97 01/01/21 00:00 Room Air Room Air 01/01/21 00:00 98.4 98 21 129/72 (91) 97 12/31/20 22:00 137/71 12/31/20 21:18 109 137/71 12/31/20 20:00 98.1 109 21 137/71 (93) 97 12/31/20 20:00 90 12/31/20 20:00 Room Air Room Air 12/31/20 19:13 97 21 12/31/20 19:13 100 18 97 Room Air 12/31/20 17:27 126/68 12/31/20 16:00 Room Air Room Air 12/31/20 16:00 79 12/31/20 16:00 97.9 97 21 126/68 (87) 97 Intake and Output 12/31/20 01/01/21 19:00 07:00 Intake Total 550 ml Output Total 200 ml 400 ml Balance -200 ml 150 ml Intake Oral 550 ml Output Urine Total 200 ml 400 ml General Appearance: no acute distress HEENT: atraumatic Respiratory: lungs clear Cardiovascular: normal rate Abdomen: soft, non tender Laboratory Tests 12/31/20 17:13: POC Whole Blood Glucose 116H 12/31/20 21:27: POC Whole Blood Glucose 134H 01/01/21 03:40: White Blood Count 12.7H, Red Blood Count 3.07L, Hemoglobin 8.8L, Hematocrit 27.4L, Mean Corpuscular Volume 89, Mean Corpuscular Hemoglobin 28.7, Mean Corpuscular Hemoglobin Concent 32.1, Red Cell Distribution Width 15.5H, Platelet Count 244, Mean Platelet Volume 9.1, Neutrophils (%) (Auto) 67.6, Lymphocytes (%) (Auto) 19.6L, Monocytes (%) (Auto) 10.0, Eosinophils (%) (Auto) 2.1, Basophils (%) (Auto) 0.7, Prothrombin Time 12.1H, Prothromb Time International Ratio 1.1, Sodium Level 135L, Potassium Level 4.7, Chloride Level 102, Carbon Dioxide Level 25, Anion Gap 9, Blood Urea Nitrogen 29H, Creatinine 2.2H, Estimat Glomerular Filtration Rate 21.4, Glucose Level 144H, Calcium Level 8.9, Phosphorus Level 3.4, Magnesium Level 2.2 01/01/21 05:59: POC Whole Blood Glucose [Pending] 01/01/21 11:45: POC Whole Blood Glucose 145H Current Medications Medications (Trade) Dose Ordered Sig/Prateek Route PRN Reason Start Time Stop Time Status Last Admin Dose Admin Acetaminophen (Tylenol) 650 mg Q4H PRN ORAL pain 12/27/20 21:45 01/26/21 21:44 12/29/20 06:01 Aspirin (Ecotrin) 81 mg DAILY ORAL 12/28/20 09:00 02/11/21 08:59 01/01/21 08:08 Carvedilol (Coreg) 12.5 mg EVERY 12 HOURS ORAL 12/28/20 09:00 01/27/21 08:59 12/31/20 21:18 Clonidine HCl (Catapres Tab) 0.1 mg Q4H PRN ORAL bp over 160 syst 12/27/20 22:00 03/27/21 21:59 Dextrose (Dextrose 50%) 25 ml Q30M PRN IV Hypoglycemia 12/28/20 02:00 03/28/21 01:59 Dextrose (Dextrose 50%) 50 ml Q30M PRN IV Hypoglycemia 12/28/20 02:00 03/28/21 01:59 Docusate Sodium (Colace) 100 mg TID ORAL 12/28/20 09:00 01/27/21 08:59 01/01/21 12:11 Furosemide (Lasix) 40 mg DAILY IV 12/28/20 09:00 01/27/21 08:59 01/01/21 08:07 Hydralazine HCl (Apresoline) 25 mg Q8HR ORAL 12/29/20 06:00 03/29/21 05:59 01/01/21 05:41 Insulin Aspart (NovoLOG) BEFORE MEALS AND HS SUBQ 12/28/20 06:30 03/28/21 06:29 01/01/21 12:14 Iron Sucrose 100 mg/Sodium Chloride 60 ml @ 240 mls/hr BEDTIME IVPB 01/01/21 09:00 01/02/21 21:14 01/01/21 08:50 Isosorbide Dinitrate (Isordil) 20 mg THREE TIMES A DAY ORAL 12/28/20 09:00 01/27/21 08:59 01/01/21 12:11 Lansoprazole (Prevacid) 30 mg DAILY ORAL 12/31/20 09:00 01/30/21 08:59 01/01/21 08:06 Polyethylene Glycol (Miralax) 17 gm BEDTIME ORAL 12/30/20 21:00 01/29/21 20:59 12/31/20 21:18 Spironolactone (Aldactone) 25 mg DAILY ORAL 12/28/20 09:00 01/27/21 08:59 01/01/21 08:06 Warfarin Sodium (Coumadin per pharmacy) 1 ea DAILY PRN MISC Per rx protocol 12/28/20 13:00 01/27/21 12:59 Warfarin Sodium (Coumadin) 5 mg COUMADIN ORAL 01/01/21 17:00 01/01/21 17:01 Assessment/Plan Assessment/Plan 1. Anemia, likely secondary to #4 -Low iron, and folic acid; on IV iron per GI - GI recs noted; GI procedures on hold for now - Stool OB negative 2. Hypoxic respiratory failure on arrival -She is now on room air 3. CHF -Seen by cardio 4. GEORGE on CKD -Seen by nephro -now off Smith; continue I&O 5. History of paroxysmal atrial fibrillation, on warfarin -We will continue Coumadin 6. History of apical thrombus, elevated D-dimer -Full anticoagulation in place 7. Recent history of COVID-19 -Chest x-ray notable for probable community-acquired pneumonia -May be recovering from COVID-19 infection - COVID-X status per guideline, can be off isolation Stable H&H, room air, will dc home today Nurse checked ambulatory saturation to be >92% Stable gait The care for this patient was discussed with my supervising physician. Time spent for this case was approximately 31 minutes. Sean Herring Jan 01, 2021 13:52
[2021-01-01] MEDS ORDERED: HYDRALAZINE HCL25 M1 ORAL (14:06)
[2021-01-01] MEDS ORDERED: SPIRONOLACTONE25 MG ORAL (14:06)
[2021-01-01] MEDS ORDERED: COREG12.5 MG ORAL (14:06)
[2021-01-01] MEDS ORDERED: LANSOPRAZOLE15 MG ORAL (14:06)
[2021-01-01] MEDS ORDERED: ASPIRIN EC81 MG ORAL (14:06)
[2021-01-01] MEDS ORDERED: COLACE100 MG ORAL (14:06)
[2021-01-01] MEDS ORDERED: ISOSORBIDE DINI10 MG ORAL (14:06)
[2021-01-01 14:28] VITALS: BP 140/54
--- NOTE | 2021-01-01 15:02 | Cardiology Progress Note ---
Subjective DATE OF SERVICE: Dec 31, 2020 (late entry) No chest pain Remains comfortable on room air. Monitor: sinus with few ectopics and BBB Objective Last 24 Hour Vital Signs Date Time Temp Pulse Resp B/P (MAP) Pulse Ox O2 Delivery O2 Flow Rate FiO2 01/01/21 14:28 140/54 01/01/21 12:11 140/54 01/01/21 12:00 Nasal Cannula 2.0 Nasal Cannula 2.0 01/01/21 11:49 97.9 84 23 140/54 (82) 100 01/01/21 11:45 95 01/01/21 09:00 Nasal Cannula 2.0 Nasal Cannula 2.0 01/01/21 08:08 95 127/65 01/01/21 08:06 127/65 01/01/21 07:51 98.1 95 23 127/65 (85) 96 01/01/21 07:45 90 01/01/21 07:00 95 18 96 Nasal Cannula 2.0 28 01/01/21 05:41 147/78 01/01/21 04:00 Room Air Room Air 01/01/21 04:00 97.9 97 21 126/68 (87) 97 01/01/21 04:00 98 Bi-Pap 30 01/01/21 04:00 97 01/01/21 00:00 Room Air Room Air 01/01/21 00:00 98.4 98 21 129/72 (91) 97 12/31/20 22:00 137/71 12/31/20 21:18 109 137/71 12/31/20 20:00 98.1 109 21 137/71 (93) 97 12/31/20 20:00 90 12/31/20 20:00 Room Air Room Air 12/31/20 19:13 97 21 12/31/20 19:13 100 18 97 Room Air 21 12/31/20 17:27 126/68 12/31/20 16:00 Room Air Room Air 12/31/20 16:00 79 12/31/20 16:00 97.9 97 21 126/68 (87) 97 ROS: no change from data of 12/27/20 HEENT: normal ENT inspection RHYTHM: NSR, PVCs, other - LBBB CARDIAC: normal rate, regular rhythm, normal S1 and S2, systolic murmur - 2/6 systolic murmur at apex, diastolic murmur - 1/4 diastolic decrescendo ABDOMEN: non tender, soft, hepatomegaly EXTREMITIES: normal range of motion, no calf tenderness, +1 edema Laboratory Tests Test 12/31/20 17:13 12/31/20 21:27 01/01/21 03:40 01/01/21 05:59 POC Whole Blood Glucose 116 MG/DL (74-106) H 134 MG/DL (74-106) H Pending White Blood Count 12.7 K/UL (4.8-10.8) H Red Blood Count 3.07 M/UL (4.20-5.40) L Hemoglobin 8.8 G/DL (12.0-16.0) L Hematocrit 27.4 % (37.0-47.0) L Mean Corpuscular Volume 89 FL (80-99) Mean Corpuscular Hemoglobin 28.7 PG (27.0-31.0) Mean Corpuscular Hemoglobin Concent 32.1 G/DL (32.0-36.0) Red Cell Distribution Width 15.5 % (11.6-14.8) H Platelet Count 244 K/UL (150-450) Mean Platelet Volume 9.1 FL (6.5-10.1) Neutrophils (%) (Auto) 67.6 % (45.0-75.0) Lymphocytes (%) (Auto) 19.6 % (20.0-45.0) L Monocytes (%) (Auto) 10.0 % (1.0-10.0) Eosinophils (%) (Auto) 2.1 % (0.0-3.0) Basophils (%) (Auto) 0.7 % (0.0-2.0) Prothrombin Time 12.1 SEC (9.30-11.50) H Prothromb Time International Ratio 1.1 (0.9-1.1) Sodium Level 135 MMOL/L (136-145) L Potassium Level 4.7 MMOL/L (3.5-5.1) Chloride Level 102 MMOL/L (98-107) Carbon Dioxide Level 25 MMOL/L (21-32) Anion Gap 9 mmol/L (5-15) Blood Urea Nitrogen 29 mg/dL (7-18) H Creatinine 2.2 MG/DL (0.55-1.30) H Estimat Glomerular Filtration Rate 21.4 mL/min (>60) Glucose Level 144 MG/DL (74-106) H Calcium Level 8.9 MG/DL (8.5-10.1) Phosphorus Level 3.4 MG/DL (2.5-4.9) Magnesium Level 2.2 MG/DL (1.8-2.4) Test 01/01/21 11:45 POC Whole Blood Glucose 145 MG/DL (74-106) H Assessment/Plan Assessment/Plan Non-compliance Acute respiratory failure with hypoxia 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 Diuresis as tolerated by renal parameters; maintenance oral dose today. Maximizing anti failure regimen as tolerated by BP. Full anticoagulation Consider ICD as outpatient when performance status and compliance better REMAINS high risk for re-hospitalizations Everett Iqbal MD Jan 01, 2021 15:02
--- NOTE | 2021-01-01 15:04 | Cardiology Progress Note ---
Subjective DATE OF SERVICE: Jan 01, 2021 No SOB. No chest pain Remains comfortable on room air. Monitor: sinus with few ectopics and BBB Objective Last 24 Hour Vital Signs Date Time Temp Pulse Resp B/P (MAP) Pulse Ox O2 Delivery O2 Flow Rate FiO2 01/01/21 14:28 140/54 01/01/21 12:11 140/54 01/01/21 12:00 Nasal Cannula 2.0 Nasal Cannula 2.0 01/01/21 11:49 97.9 84 23 140/54 (82) 100 01/01/21 11:45 95 01/01/21 09:00 Nasal Cannula 2.0 Nasal Cannula 2.0 01/01/21 08:08 95 127/65 01/01/21 08:06 127/65 01/01/21 07:51 98.1 95 23 127/65 (85) 96 01/01/21 07:45 90 01/01/21 07:00 95 18 96 Nasal Cannula 2.0 28 01/01/21 05:41 147/78 01/01/21 04:00 Room Air Room Air 01/01/21 04:00 97.9 97 21 126/68 (87) 97 01/01/21 04:00 98 Bi-Pap 30 01/01/21 04:00 97 01/01/21 00:00 Room Air Room Air 01/01/21 00:00 98.4 98 21 129/72 (91) 97 12/31/20 22:00 137/71 12/31/20 21:18 109 137/71 12/31/20 20:00 98.1 109 21 137/71 (93) 97 12/31/20 20:00 90 12/31/20 20:00 Room Air Room Air 12/31/20 19:13 97 21 12/31/20 19:13 100 18 97 Room Air 21 12/31/20 17:27 126/68 12/31/20 16:00 Room Air Room Air 12/31/20 16:00 79 12/31/20 16:00 97.9 97 21 126/68 (87) 97 ROS: no change from data of 12/27/20 HEENT: normal ENT inspection RHYTHM: NSR, PVCs, other - LBBB CARDIAC: normal rate, regular rhythm, normal S1 and S2, systolic murmur - 2/6 systolic murmur at apex, diastolic murmur - 1/4 diastolic decrescendo ABDOMEN: non tender, soft, hepatomegaly EXTREMITIES: normal range of motion, no calf tenderness, +1 edema Laboratory Tests Test 12/31/20 17:13 12/31/20 21:27 01/01/21 03:40 01/01/21 05:59 POC Whole Blood Glucose 116 MG/DL (74-106) H 134 MG/DL (74-106) H Pending White Blood Count 12.7 K/UL (4.8-10.8) H Red Blood Count 3.07 M/UL (4.20-5.40) L Hemoglobin 8.8 G/DL (12.0-16.0) L Hematocrit 27.4 % (37.0-47.0) L Mean Corpuscular Volume 89 FL (80-99) Mean Corpuscular Hemoglobin 28.7 PG (27.0-31.0) Mean Corpuscular Hemoglobin Concent 32.1 G/DL (32.0-36.0) Red Cell Distribution Width 15.5 % (11.6-14.8) H Platelet Count 244 K/UL (150-450) Mean Platelet Volume 9.1 FL (6.5-10.1) Neutrophils (%) (Auto) 67.6 % (45.0-75.0) Lymphocytes (%) (Auto) 19.6 % (20.0-45.0) L Monocytes (%) (Auto) 10.0 % (1.0-10.0) Eosinophils (%) (Auto) 2.1 % (0.0-3.0) Basophils (%) (Auto) 0.7 % (0.0-2.0) Prothrombin Time 12.1 SEC (9.30-11.50) H Prothromb Time International Ratio 1.1 (0.9-1.1) Sodium Level 135 MMOL/L (136-145) L Potassium Level 4.7 MMOL/L (3.5-5.1) Chloride Level 102 MMOL/L (98-107) Carbon Dioxide Level 25 MMOL/L (21-32) Anion Gap 9 mmol/L (5-15) Blood Urea Nitrogen 29 mg/dL (7-18) H Creatinine 2.2 MG/DL (0.55-1.30) H Estimat Glomerular Filtration Rate 21.4 mL/min (>60) Glucose Level 144 MG/DL (74-106) H Calcium Level 8.9 MG/DL (8.5-10.1) Phosphorus Level 3.4 MG/DL (2.5-4.9) Magnesium Level 2.2 MG/DL (1.8-2.4) Test 01/01/21 11:45 POC Whole Blood Glucose 145 MG/DL (74-106) H Assessment/Plan Assessment/Plan Non-compliance in past Acute respiratory failure with hypoxia 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 Maintenance oral diuretic dose for discharge; encouraged to monitor outpatient weights and restrict sodium intake. Continue current anti-failure and anti-HTN regimen Full anticoagulation for cardioembolic prophylaxis Consider ICD as outpatient when performance status and compliance better REMAINS high risk for re-hospitalizations - offered outpatient cardiology follow -up Everett Iqbal MD Jan 01, 2021 15:04
--- NOTE | 2021-01-01 15:49 | NUR ---
NURSE NOTES: patient was discharged home per dr aguilar/nigel adams order.educations and instructions regarding patients condition and medications were discussed, patient and family members verbalized understanding. IV line removed and bleeding was stopped, equipment monitor phototypesetting removed as well. belongings checked, all items are accounted for including 2 pcs of hearing aids and eyeglasses. not in acute distress. alert oriented X4.
[2021-01-01] MEDS ORDERED: Warfarin Sodium 5mg ORAL SCH (17:00)
--- NOTE | 2021-01-01 17:20 | NUR ---
INSURANCE CLINICALS/REVIEW FAXED TO [employer] [phone] [facility] [phone]
--- NOTE | 2021-01-05 13:47 | Discharge Summary ---
Discharge Summary Discharge Summary _ Date of admission: 12/27/2020 Date of discharge: 01/01/[address] Espinosa History of Present Illness and Brief Hospital Course Ms. Coughlin is an 80-year-old female with history of CHF, and medical noncompliance, who presented to the ED for evaluation of shortness of breath over few days with intermittent chest pain. She was hypoxic on arrival and was placed on nonrebreather and then BiPAP. Of note, she was hospitalized at [facility] in early October 2020 for UTI and CHF. At that time, she was diuresed and she improved significantly. Patient was also admitted to [facility] for similar problems in the past. Upon previous discharge, however, patient left the hospital with her daughter and did not take any prescriptions with them. Given her low hemoglobin level, she was transfused with 1 unit of PRBC. She was started on IV iron. Stool occult blood test was negative. Given her age and stable H&H, further GI procedures were held. Patient's oxygen saturation rapidly improved with medical management and she was able to be weaned off of oxygen. Her oxygen saturation remained stable on room air until discharge. Patient came in with history of paroxysmal atrial fibrillation and was on warfarin. Warfarin was continued during hospitalization. Given elevated BUN and creatinine, she was evaluated with renal ultrasound which was negative for hydronephrosis. She was started on diuretics, and Smith catheter. Smith catheter was later discontinued before discharge. Her electrolytes were replaced as needed. Her initial EKG was notable for wide-complex tachycardia consistent with left bundle branch block pattern. Echocardiogram revealed moderate left ventricular enlargement, ejection fraction of 20%, mild to moderate aortic regurgitation, moderate mitral regurgitation, mild tricuspid regurgitation, and peak right ventricular systolic pressure of 40 mmHg, consistent with mild pulmonary hypertension. She was continued to be diuresed and was started on low-sodium diet. Throughout her hospitalization, she was treated for anemia, CHF exacerbation, and hypoxia. Her H&H remained stable after 1 unit of PRBC. Patient was found to be medically stable for discharge and was discharged home on 01/01/2021. Patient was at high risk for rehospitalization. Patient was instructed to foll ow-up with cardiology as an outpatient. ICD may be considered as an outpatient when her medical condition and compliance are better. Consultants: Cardiology Dr. Iqbal Nephrology Dr. Garland Gastroenterology Dr. Coleman Discharge Condition Improved and stable Discharge diet: Low-sodium diet Final diagnoses Medication noncompliance in the past Acute respiratory failure with hypoxia NSTEMI Dilated hypertensive and ischemic cardiomyopathy Acute on chronic CHF Pulmonary hypertension Aortic regurgitation Mitral regurgitation Tricuspid regurgitation Conduction system disease with LBBB Lactic acidosis Paroxysmal atrial fibrillation History of left ventricular thrombus Hypertensive urgency, recovered Anemia due to CKD Diabetes mellitus Hyperlipidemia I have been assigned to dictate discharge summary for this account. Sean Herring Jan 05, 2021 13:47
== END 2021-01-01 15:35 | disposition home or self-care (01) | DRG 280 ==
LOC: EDBD 19:51 → EDUNIT# 19:51 → EMR 20:05 → 2W 21:13 → EDBEDREQ 21:42
PROC: 5A09357 Assistance with Respiratory Ventilation, Less than 24 Consecutive Hours, Continuous Positive Airway Pressure (ICD-10-PCS; principal; 2020-12-27)
PROC: 30233N1 Transfusion of Nonautologous Red Blood Cells into Peripheral Vein, Percutaneous Approach (ICD-10-PCS; 2020-12-29)
DX: I13.0 Hypertensive heart and chronic kidney disease with heart failure and stage 1 through stage 4 chronic kidney disease, or unspecified chronic kidney disease (principal); K85.90 Acute pancreatitis without necrosis or infection, unspecified; I21.4 Non-ST elevation (NSTEMI) myocardial infarction; J18.9 Pneumonia, unspecified organism; I50.23 Acute on chronic systolic (congestive) heart failure; J96.01 Acute respiratory failure with hypoxia; E44.0 Moderate protein-calorie malnutrition; N17.9 Acute kidney failure, unspecified; E87.2 Acidosis; N18.9 Chronic kidney disease, unspecified; Z86.16 Personal history of COVID-19; I48.0 Paroxysmal atrial fibrillation; Z79.01 Long term (current) use of anticoagulants; E11.22 Type 2 diabetes mellitus with diabetic chronic kidney disease; J44.9 Chronic obstructive pulmonary disease, unspecified; I16.0 Hypertensive urgency; I25.5 Ischemic cardiomyopathy; E78.5 Hyperlipidemia, unspecified; Z91.19 Patient's noncompliance with other medical treatment and regimen; I27.20 Pulmonary hypertension, unspecified; I34.0 Nonrheumatic mitral (valve) insufficiency; I35.1 Nonrheumatic aortic (valve) insufficiency; I44.7 Left bundle-branch block, unspecified; D63.1 Anemia in chronic kidney disease; I36.1 Nonrheumatic tricuspid (valve) insufficiency
CPT/HCPCS: 36415; 71045; 76770; 80048; 80053; 80061; 81003; 82270; 82306; 82550; 82553; 82607; 82728; 82746; 82803; 82962; 82977; 83036; 83540; 83550; 83605; 83615; 83690; 83735; 83880; 84100; 84300; 84443; 84484; 84550; 85007; 85025; 85379; 85610; 85730; 86140; 86850; 86870; 86900; 86901; 86904; 86920; 87040; 93005; 93306; 96361; 96365; 96367; 96375; 99291; J1815; J7030